=== PATIENT | male | born 1935 | race Caucasian/White ===

== ENCOUNTER 2016-09-13 10:16 | Inpatient (IN) | payer OTHER, MEDICARE ==
[~2016-09-13] VITALS: Ht 175.3 cm; Wt 59.8 kg
[~2016-09-13 10:16] MED LIST: ACET-1311 PO; AMLO-110 PO; BISA-16 PO; NYSP EXT; TAMS0.4C59 PO; ULT50X PO
--- NOTE | 2016-09-13 11:03 | EMERGENCY ROOM VISIT NOTE ---
History Report prepared by Edelmira: Tejas Moncada Under the Supervision of: Dr. Jose Rutherfodr M.D. First contact with patient: 10:41 Chief Complaint: DIZZY Stated Complaint: CHEST PAIN Nursing Triage Summary: pt reports being dizzy yesterday denies any chest pain . stated earlier started today is intermittent and does not radiate. pt denies any cardiac problems in past has hx of neck surgery "years ago" and has chronic back pain pain radiates down bilat legs History of Present Illness The patient is an 81 year old male who presents to the Emergency Room with complaints of improved dizziness that occurred this morning. The patient had a physical therapist visit him at home. He had his blood pressure measured and was found to be hypotensive. His primary doctor at the [facility] was called, who referred the patient to the ED. The patient also complains of some abdominal pain that he has been experiencing for a while. He suffers from constipation. The patient denies any recent fevers, chills, chest pain, or cough. He does note that he has had leg pain. The patient's left leg is weak at baseline. Source of History: patient Onset: this morning Position: other (global) Quality: other (dizziness) Timing: other (improved) Associated Symptoms: + abdominal pain, No chest pain, No chills, No cough, No fevers Review of Systems See HPI for pertinent positives & negatives. A total of 10 systems reviewed and were otherwise negative. Past Medical & Surgical Medical Problems: (1) Asthma (2) Dizziness (3) Gait abnormality (4) HTN (hypertension) (5) Kidney disease (6) Spinal stenosis (7) Sprain of ankle Family History No pertinent family history Social History Smoking Status: Never Smoker Housing Status: lives with friends Occupation Status: retired Current/Historical Medications Scheduled Bisacodyl (Dulcolax), Unknown Dose PO UD Tamsulosin Hcl (Flomax), 0.4 MG PO DAILY Scheduled PRN Acetaminophen (Tylenol), 325 MG PO QID PRN for Pain Tramadol HCl (Tramadol HCl), 50 MG PO Q4H PRN for Pain Allergies Coded Allergies: Tetanus Immune Globulin (Verified Allergy, Mild, 09/13/16) Physical Exam Vital Signs Date Time Temp Pulse Resp B/P Pulse Ox O2 Delivery O2 Flow Rate FiO2 09/13/16 14:24 75 22 134/78 96 Room Air 09/13/16 14:22 69 20 178/78 100 Nasal Cannula 2.0 09/13/16 13:38 63 09/13/16 12:59 95 Nasal Cannula 2.0 09/13/16 12:58 74 22 140/59 94 Room Air 09/13/16 12:43 75 20 140/59 92 Room Air 09/13/16 11:27 62 125/66 94 105/45 96 122/51 09/13/16 11:23 94 Room Air 09/13/16 10:33 36.4 68 24 125/65 94 Room Air 09/13/16 10:28 87 Physical Exam GENERAL: Patient is a healthy-appearing well-nourished HEAD: Normocephalic atraumatic EYES: Ocular movements intact pupils equal and react to light OROPHARYNX mucous membranes are moist no exudates present no erythema or edema present NECK: Supple no nuchal rigidity CHEST: Good equal expansion LUNGS: Clear and equal to auscultation CARDIAC: Normal S1 and S2 ABDOMEN: Soft nontender no guarding BACK: No CVA tenderness EXTREMITIES: No pain upon palpation normal muscle strength in all groups no clubbing cyanosis or edema NEURO: Patient is following commands is answering questions appropriately. Alert and oriented x3 Cranial Nerves 2-12 grossly intact Medical Decision & Procedures ER Provider Diagnostic Interpretation: Radiology results as stated below per my review and radiologist interpretation: CT HEAD WITHOUT CONTRAST (CT) CLINICAL HISTORY: Acute change in mental status. Confusion. COMPARISON STUDY: 04/14/2013 TECHNIQUE: Axial CT of the brain is performed from the vertex to the skull base. IV contrast was not administered for this examination. CT DOSE: 614.27 mGy.cm FINDINGS: No intra or extra-axial mass lesions are visualized. There is no CT evidence of acute cortical infarction. There is no evidence of midline shift. There is no acute hemorrhage. No calvarial fractures are visualized. There are patchy white matter hypodensities likely on a small vessel basis. There are lacunar infarcts involving both thalami as well as the left cerebellar hemisphere. These appear old, but were not present on the prior 2012 study.. There is no evidence of pathologic ventricular dilatation. There is no evidence of acute sinusitis IMPRESSION: Interval development of lacunar infarcts involving both thalami and the left cerebellar hemisphere. These do not appear acute. Electronically signed by: Lio Fleming M.D. 09/13/2016 12:34 PM Dictated Date/Time: 09/13/2016 12:32 PM ABDOMEN AND PELVIS CT WITH IV CONTRAST CT DOSE: 319.70 mGy.cm HISTORY: Pain Pt c/o RLQ abd pain TECHNIQUE: Multiaxial CT images of the abdomen and pelvis were performed following the use of intravenous contrast. COMPARISON STUDY: 04/01/2013 FINDINGS: Interval development of right pleural effusion. Minimal superimposed basilar atelectasis. Mild fatty infiltration of liver. Several gallstones within the gallbladder lumen unchanged. Several calcifications within the pancreas consistent with chronic pancreatitis. Cystic lesion of the pancreatic head 1.3 cm maximum dimension. This is similar to the prior study 1.2 cm. Kidneys demonstrate several nonobstructing renal calcifications bilaterally. There is no evidence for an obstructing urinary tract calculus. Mild distention of the infrarenal aspect abdominal aorta 2.6 cm. This is similar to the prior study 2.7 cm. Bowel pattern overall is nonobstructive. The appendix is identified at least in part and appears to be unremarkable. Mild prominence of the distal aspect of the right ureter is unchanged in the prior study. There is a significant fecal impaction within the rectum. Bladder somewhat displaced anteriorly. IMPRESSION: 1. Rather significant fecal impaction of the rectum. 2. Study is negative for appendicitis. 3. Nonobstructive bowel pattern. 4. Stable cystic nodule the pancreatic head. 5. Several nonobstructing renal calcifications unchanged. 6. Interval development of a right pleural effusion with mild bibasilar atelectatic change Electronically signed by: Lencho Barrios M.D. 09/13/2016 12:39 PM Dictated Date/Time: 09/13/2016 12:33 PM CHEST ONE VIEW PORTABLE CLINICAL HISTORY: Pt c/o gen weakness COMPARISON STUDY: 04/02/2013 FINDINGS: The bones soft tissues and hemidiaphragms are normal. The cardiomediastinal silhouette is normal. The lungs are clear. The pulmonary vasculature is slightly prominent. IMPRESSION: Pulmonary vascular congestion Electronically signed by: Lencho Barrios M.D. 09/13/2016 12:21 PM Dictated Date/Time: 09/13/2016 12:20 PM Laboratory Results Test 09/13/16 09:53 09/13/16 11:16 09/13/16 11:30 Immature Granulocyte % (Auto) 0.8 % White Blood Count 9.32 K/uL (4.8-10.8) Red Blood Count 4.91 M/uL (4.7-6.1) Hemoglobin 15.0 g/dL (14.0-18.0) Hematocrit 43.5 % (42-52) Mean Corpuscular Volume 88.6 fL (80-100) Mean Corpuscular Hemoglobin 30.5 pg (25-34) Mean Corpuscular Hemoglobin Concent 34.5 g/dl (32-36) Platelet Count 225 K/uL (130-400) Mean Platelet Volume 9.5 fL (7.4-10.4) Neutrophils (%) (Auto) 76.4 % Lymphocytes (%) (Auto) 11.9 % Monocytes (%) (Auto) 6.3 % Eosinophils (%) (Auto) 4.1 % Basophils (%) (Auto) 0.5 % Neutrophils # (Auto) 7.12 K/uL (1.4-6.5) Lymphocytes # (Auto) 1.11 K/uL (1.2-3.4) Monocytes # (Auto) 0.59 K/uL (0.11-0.59) Eosinophils # (Auto) 0.38 K/uL (0-0.5) Basophils # (Auto) 0.05 K/uL (0-0.2) Immature Granulocyte # (Auto) 0.07 K/uL (0.00-0.02) Estimated Average Glucose 123 mg/dl Hemoglobin A1c 5.9 % (4.5-5.6) Total Bilirubin 0.8 mg/dl (0.2-1) Direct Bilirubin 0.2 mg/dl (0-0.2) Aspartate Amino Transf (AST/SGOT) 21 U/L (15-37) Alanine Aminotransferase (ALT/SGPT) 19 U/L (12-78) Alkaline Phosphatase 88 U/L (45-117) Total Creatine Kinase 33 U/L (39-308) Creatine Kinase MB 1.2 ng/ml (0.5-3.6) Creatine Kinase MB Ratio 3.6 (0-3.0) Total Protein 6.7 gm/dl (6.4-8.2) Albumin 3.1 gm/dl (3.4-5.0) Thyroid Stimulating Hormone (TSH) 1.570 uIu/ml (0.300-4.500) Bedside Glucose 124 mg/dl (70-99) Urine Color DK YELLOW Urine Appearance CLEAR (CLEAR) Urine pH 5.5 (4.5-7.5) Urine Specific [place] 1.021 (1.000-1.030) Urine Protein NEG (NEG) Urine Glucose (UA) NEG (NEG) Urine Ketones NEG (NEG) Urine Occult Blood 1+ (NEG) Urine Nitrite NEG (NEG) Urine Bilirubin NEG (NEG) Urine Urobilinogen NEG (NEG) Urine Leukocyte Esterase NEG (NEG) Urine WBC (Auto) 1-5 /hpf (0-5) Urine RBC (Auto) >30 /hpf (0-4) Urine Hyaline Casts (Auto) 1-5 /lpf (0-5) Urine Epithelial Cells (Auto) 10-20 /lpf (0-5) Urine Bacteria (Auto) NEG (NEG) Labs reviewed by ED physician. Medications Administered Medications (Trade) Dose Ordered Sig/Roland Route Start Time Stop Time Status Last Admin Dose Admin Sodium Chloride (Nss 1000ml) 1,000 ml @ 999 mls/hr Q1H1M STAT IV 09/13/16 11:08 09/13/16 12:08 DC 09/13/16 11:19 999 MLS/HR Morphine Sulfate (MoRPHine SULFATE INJ) 4 mg NOW STAT IV 09/13/16 13:02 09/13/16 13:03 DC 09/13/16 13:19 4 MG Ondansetron HCl (Zofran Inj) 4 mg NOW STAT IV 09/13/16 13:02 09/13/16 13:03 DC 09/13/16 13:19 4 MG Acetaminophen (Tylenol Tab) 1,000 mg NOW STAT PO 09/13/16 13:02 09/13/16 13:03 DC 09/13/16 13:18 1,000 MG Acetaminophen (Tylenol Tab) 650 mg Q4H PRN PO 09/13/16 14:45 10/13/16 14:44 09/15/16 16:10 650 MG Tramadol HCl 50 mg 50 mg Q4H PRN PO 09/13/16 14:45 10/13/16 14:44 09/15/16 13:59 50 MG Sodium Chloride (Nss 1000ml) 1,000 ml @ 75 mls/hr [id number] ONCE IV 09/13/16 14:45 09/14/16 04:04 DC 09/13/16 17:09 75 MLS/HR ECG Indication: other (dizziness) Rate (beats per minute): 70 Rhythm: normal sinus Findings: no acute ischemic change, no ectopy, other (old inferior infarct) ED Course 1057: Past medical records reviewed. The patient was evaluated in room A9b. A complete history and physical examination was performed. 1108: NSS 1000 ml @ 999 mls/hr. 1302: Tylenol 1000 mg PO, Zofran 4 mg IV, Morphine Sulfate 4 mg IV. 1327: Discussed the case with Dr. Torres [facility]. The patient will be evaluated. Medical Decision Differential diagnosis: Etiologies such as metabolic, infection, hypo/hyperglycemia, electrolyte abnormalities, cardiac sources, intracerebral event, toxicologic, neurologic, as well as others were entertained. This is an 81-year-old male presents emergency department complaining of generalized weakness. The patient appears to have multiple lacunar infarcts on CAT scan of his head. Based on this finding I felt that the patient should be admitted to the hospital for a stroke workup. I did discuss the case with the hospitalist service who agreed to admit the patient. Patient was in agreement with the treatment plan. Consults Time Called: 1320 Consulting Physician: Dr. Torres [facility]. Returned Call: [phone]: Discussed the case with Dr. Torres [facility]. The patient will be evaluated. Impression Primary Impression: CVA (cerebral vascular accident) Scribe Attestation The scribe's documentation has been prepared under my direction and personally reviewed by me in its entirety. I confirm that the note above accurately reflects all work, treatment, procedures, and medical decision making performed by me. Departure Information Dispostion Being Evaluated By Hospitalist Referrals [facility] [place] (PCP) Patient Instructions My [facility]
[2016-09-13] MEDS ORDERED: SODIUM CHLORIDE 0.9% 1000ML 1,000 ML IV STA (11:08)
[2016-09-13] MEDS ORDERED: OPTIRAY 320 IV PRN (11:15)
[2016-09-13] MEDS ORDERED: TAMS0.4C38 PO (11:24)
[2016-09-13 11:33] LABS: BASO % 0.5 %; BASO ABS # 0.05 K/uL (0-0.2); COMPLETE YES; EOS % 4.1 %; HEMATOCRIT 43.5 % (42-52); IG% 0.8 %; LYMPH % 11.9 %; LYMPH ABS # 1.11 K/uL (1.2-3.4); MEAN CELL VOLUME 88.6 fL (80-100); MEAN CORPUSCULAR HEMOGLOBIN 30.5 pg (25-34); MEAN CORPUSCULAR HGB CONC 34.5 g/dl (32-36); MEAN PLATELET VOLUME 9.5 fL (7.4-10.4); MONO % 6.3 %; NEUT % 76.4 %; PLATELET COUNT 225 K/uL (130-400); RED BLOOD COUNT 4.91 M/uL (4.7-6.1); WHITE BLOOD COUNT 9.32 K/uL (4.8-10.8)
[2016-09-13 11:40] LABS: BUN/CREATININE RATIO 15.5 (10-20)
[2016-09-13 11:47] LABS: URINE APPEARANCE CLEAR (CLEAR); URINE BILIRUBIN NEG (NEG); URINE COLOR DK YELLOW; URINE NITRITE NEG (NEG); URINE PH 5.5 (4.5-7.5); URINE SPECIFIC GRAVITY 1.021 (1.000-1.030); UROBILINOGEN NEG (NEG)
[2016-09-13 11:49] LABS: MANUAL MICROSCOPIC REQUIRED? NO; REVIEW REQ? NO
[2016-09-13 11:53] LABS: CKMB/CK RATIO 3.6 (0-3.0); THYROID STIMULATING HORMONE 1.57 uIu/ml (0.300-4.500)
--- NOTE | 2016-09-13 12:22 | DIAGNOSTIC IMAGING REPORT ---
CHEST ONE VIEW PORTABLE CLINICAL HISTORY: Pt c/o gen weakness COMPARISON STUDY: 04/02/2013 FINDINGS: The bones soft tissues and hemidiaphragms are normal. The cardiomediastinal silhouette is normal. The lungs are clear. The pulmonary vasculature is slightly prominent. IMPRESSION: Pulmonary vascular congestion Electronically signed by: Lencho Barrios M.D. 09/13/2016 12:21 PM Dictated Date/Time: 09/13/2016 12:20 PM
--- NOTE | 2016-09-13 12:36 | DIAGNOSTIC IMAGING REPORT ---
CT HEAD WITHOUT CONTRAST (CT) CLINICAL HISTORY: Acute change in mental status. Confusion. COMPARISON STUDY: 04/14/2013 TECHNIQUE: Axial CT of the brain is performed from the vertex to the skull base. IV contrast was not administered for this examination. CT DOSE: 614.27 mGy.cm FINDINGS: No intra or extra-axial mass lesions are visualized. There is no CT evidence of acute cortical infarction. There is no evidence of midline shift. There is no acute hemorrhage. No calvarial fractures are visualized. There are patchy white matter hypodensities likely on a small vessel basis. There are lacunar infarcts involving both thalami as well as the left cerebellar hemisphere. These appear old, but were not present on the prior 2012 study.. There is no evidence of pathologic ventricular dilatation. There is no evidence of acute sinusitis IMPRESSION: Interval development of lacunar infarcts involving both thalami and the left cerebellar hemisphere. These do not appear acute. Electronically signed by: Lio Fleming M.D. 09/13/2016 12:34 PM Dictated Date/Time: 09/13/2016 12:32 PM
--- NOTE | 2016-09-13 12:40 | DIAGNOSTIC IMAGING REPORT ---
ABDOMEN AND PELVIS CT WITH IV CONTRAST CT DOSE: 319.70 mGy.cm HISTORY: Pain Pt c/o RLQ abd pain TECHNIQUE: Multiaxial CT images of the abdomen and pelvis were performed following the use of intravenous contrast. COMPARISON STUDY: 04/01/2013 FINDINGS: Interval development of right pleural effusion. Minimal superimposed basilar atelectasis. Mild fatty infiltration of liver. Several gallstones within the gallbladder lumen unchanged. Several calcifications within the pancreas consistent with chronic pancreatitis. Cystic lesion of the pancreatic head 1.3 cm maximum dimension. This is similar to the prior study 1.2 cm. Kidneys demonstrate several nonobstructing renal calcifications bilaterally. There is no evidence for an obstructing urinary tract calculus. Mild distention of the infrarenal aspect abdominal aorta 2.6 cm. This is similar to the prior study 2.7 cm. Bowel pattern overall is nonobstructive. The appendix is identified at least in part and appears to be unremarkable. Mild prominence of the distal aspect of the right ureter is unchanged in the prior study. There is a significant fecal impaction within the rectum. Bladder somewhat displaced anteriorly. IMPRESSION: 1. Rather significant fecal impaction of the rectum. 2. Study is negative for appendicitis. 3. Nonobstructive bowel pattern. 4. Stable cystic nodule the pancreatic head. 5. Several nonobstructing renal calcifications unchanged. 6. Interval development of a right pleural effusion with mild bibasilar atelectatic change Electronically signed by: Lencho Barrios M.D. 09/13/2016 12:39 PM Dictated Date/Time: 09/13/2016 12:33 PM
[2016-09-13] MEDS ORDERED: ONDANSETRON INJ 2 MG/ML 2 ML VIAL IV STA (13:02)
[2016-09-13] MEDS ORDERED: ACETAMINOPHEN 500 MG TAB PO STA (13:02)
[2016-09-13] MEDS ORDERED: MoRPHine SULFATE 4 MG/ML 1 ML CARP\\VIAL IV STA (13:02)
[2016-09-13] MEDS ORDERED: POLYETHYLENE (MIRALAX) 17 GM PACK PO PRN (14:45)
[2016-09-13] MEDS ORDERED: MAGNESIUM HYDROXIDE SUSP 30 ML UDC PO PRN (14:45)
[2016-09-13] MEDS ORDERED: SODIUM CHLORIDE 0.9% 1000ML 1,000 ML IV ONE ×2 (14:45→22:45)
[2016-09-13] MEDS ORDERED: ACETAMINOPHEN 325 MG TAB PO PRN (14:45)
[2016-09-13] MEDS ORDERED: SENNA 8.8 MG/5 ML UDP PO PRN (15:00)
[2016-09-13 16:01] LABS: PARTIAL THROMBOPLASTIN RATIO 1.3; PROTHROMBIN TIME (PATIENT) 11.1 SECONDS (9.0-12.0)
[2016-09-13 16:40] VITALS: BP_SYST 105; BP_SYST 109; BP_SYST 118; BP_DIAS 62; BP_DIAS 66; BP_DIAS 67; PULSE 69; PULSE 78; PULSE 94
[2016-09-13] MEDS ORDERED: NURSING VERBAL MED ORDER ONE ×2 (17:30→22:30)
[2016-09-13 19:00] VITALS: BP 109/67; PULSE 69; TEMP 36.4; O2SAT 95; Ht 175.3 cm; Wt 59.8 kg
--- NOTE | 2016-09-13 20:28 | History and Physical ---
History & Physical Date & Time of Service: Sep 13, 2016 at 15:09 Chief Complaint: Chest Pain Primary Care Physician: Noa Alonso M.D. History of Present Illness Source: patient, spouse This is a 81 y/o male with no significant PMHx presented to the ED complaining of dizziness and blurry vision since this morning. Patient states that yesterday after having the physical therapy, his BP reading was low (couldn't recall the exact BP). Physical therapist informed the nurse, who came the next day to his house and also found to have low BP (systolic in 90s and Diastolic in 40s). While he was sitting down and talking to the nurse, he felt dizzy. He describes the dizziness as "everything looks strange". His vision was blurry also. For past couple of months he is feeling weak. His appetite decreased also. His left arm is weaker than the right arm. He also has b/l lower extremities weakness. According to the at home he moves around with transporter. He also complains of constipation and abdominal discomfort, mostly on the RLQ. He usually takes Dulcolax at home. He didn't have bowel movements for past few days. Denies chest pain, SOB, change in vision, heart palpitation, headache, lightheadedness, or any other additional symptoms. Past Medical/Surgical History Medical Problems: (1) Asthma Status: Chronic (2) HTN (hypertension) Status: Chronic (3) Kidney disease Status: Chronic (4) Spinal stenosis Status: Chronic (5) Sprain of ankle Status: Resolved Family History Daughter of asthma at the age of 16 Social History Smoking Status: Former Smoker Housing status: lives with family Occupational Status: retired Immunizations History of Influenza Vaccine: No History of Tetanus Vaccine?: Unknown History of Pneumococcal: No History of Hepatitis B Vaccine: No Allergies Coded Allergies: Tetanus Immune Globulin (Verified Allergy, Mild, 09/13/16) Home Medications Scheduled Bisacodyl (Dulcolax), Unknown Dose PO UD Tamsulosin Hcl (Flomax), 0.4 MG PO DAILY Scheduled PRN Acetaminophen (Tylenol), 325 MG PO QID PRN for Pain Tramadol HCl (Tramadol HCl), 50 MG PO Q4H PRN for Pain Review of Systems Constitutional: + weakness, + weight loss, No chills, No fever Eyes: + diplopia, + problem reported (blurry vision), No worsening of vision ENT: No nasal symptoms, No sore throat, No tinnitus, No trouble swallowing Respiratory: No cough, No dyspnea at rest, No dyspnea on exertion, No shortness of breath, No sputum Cardiovascular: No chest pain, No edema, No palpitations Abdomen: + constipation, + pain (generalized abdominal discomfort, more on RLQ) , No diarrhea, No nausea, No vomiting Musculoskeletal: No muscle pain, No swelling Genitourinary - Male: + urinary incontinence, No hematuria Neurologic: + weakness, No numbness/tingling, No paralysis Integumentary: No rash Physical Exam Vital Signs Date Time Temp Pulse Resp B/P Pulse Ox O2 Delivery O2 Flow Rate FiO2 09/13/16 14:24 75 22 134/78 96 Room Air 09/13/16 14:22 69 20 178/78 100 Nasal Cannula 2.0 09/13/16 13:38 63 09/13/16 12:59 95 Nasal Cannula 2.0 09/13/16 12:58 74 22 140/59 94 Room Air 09/13/16 12:43 75 20 140/59 92 Room Air 09/13/16 11:27 62 125/66 94 105/45 96 122/51 09/13/16 11:23 94 Room Air 09/13/16 10:33 36.4 68 24 125/65 94 Room Air 09/13/16 10:28 87 General Appearance: WD/WN, no apparent distress, + thin Head: normocephalic, atraumatic Eyes: normal inspection, EOMI, sclerae normal Neck: supple, trachea midline Respiratory/Chest: chest non-tender, lungs clear, no respiratory distress, no accessory muscle use Cardiovascular: regular rate, rhythm, no edema Abdomen/GI: normal bowel sounds, soft, no pulsatile mass, + tenderness (RLQ) Extremities/Musculoskelatal: no calf tenderness, no pedal edema, non-tender Neurologic/Psych: alert, normal mood/affect, oriented x 3, + pertinent finding (baseline L leg weakness, L arm weakness) Skin: normal color, warm/dry Diagnostics Laboratory Results Results Past 24 Hours Test 09/13/16 09:53 09/13/16 11:16 09/13/16 11:30 Range/Units White Blood Count 9.32 4.8-10.8 K/uL Red Blood Count 4.91 4.7-6.1 M/uL Hemoglobin 15.0 14.0-18.0 g/dL Hematocrit 43.5 42-52 % Mean Corpuscular Volume 88.6 80-100 fL Mean Corpuscular Hemoglobin 30.5 25-34 pg Mean Corpuscular Hemoglobin Concent 34.5 32-36 g/dl Platelet Count 225 130-400 K/uL Mean Platelet Volume 9.5 7.4-10.4 fL Neutrophils (%) (Auto) 76.4 % Lymphocytes (%) (Auto) 11.9 % Monocytes (%) (Auto) 6.3 % Eosinophils (%) (Auto) 4.1 % Basophils (%) (Auto) 0.5 % Neutrophils # (Auto) 7.12 1.4-6.5 K/uL Lymphocytes # (Auto) 1.11 1.2-3.4 K/uL Monocytes # (Auto) 0.59 0.11-0.59 K/uL Eosinophils # (Auto) 0.38 0-0.5 K/uL Basophils # (Auto) 0.05 0-0.2 K/uL RDW Standard Deviation 47.9 36.4-46.3 fL RDW Coefficient of Variation 14.9 11.5-14.5 % Immature Granulocyte % (Auto) 0.8 % Immature Granulocyte # (Auto) 0.07 0.00-0.02 K/uL Sodium Level 141 136-145 mmol/L Potassium Level 4.0 3.5-5.1 mmol/L Chloride Level 108 98-107 mmol/L Carbon Dioxide Level 26 21-32 mmol/L Anion Gap 7.0 3-11 mmol/L Blood Urea Nitrogen 16 7-18 mg/dl Creatinine 1.00 0.60-1.40 mg/dl Est Creatinine Clear Calc Drug Dose 48.2 ml/min Estimated GFR () 80.9 Estimated GFR (Non- 69.8 BUN/Creatinine Ratio 15.5 10-20 Random Glucose 118 70-99 mg/dl Calcium Level 9.0 8.5-10.1 mg/dl Total Bilirubin 0.8 0.2-1 mg/dl Direct Bilirubin 0.2 0-0.2 mg/dl Aspartate Amino Transf (AST/SGOT) 21 15-37 U/L Alanine Aminotransferase (ALT/SGPT) 19 12-78 U/L Alkaline Phosphatase 88 45-117 U/L Total Creatine Kinase 33 39-308 U/L Creatine Kinase MB 1.2 0.5-3.6 ng/ml Creatine Kinase MB Ratio 3.6 0-3.0 Troponin I 0.016 0-0.045 ng/ml Total Protein 6.7 6.4-8.2 gm/dl Albumin 3.1 3.4-5.0 gm/dl Thyroid Stimulating Hormone (TSH) 1.570 0.300-4.500 uIu/ml Bedside Glucose 124 70-99 mg/dl Urine Color DK YELLOW Urine Appearance CLEAR CLEAR Urine pH 5.5 4.5-7.5 Urine Specific [place] 1.021 1.000-1.030 Urine Protein NEG NEG Urine Glucose (UA) NEG NEG Urine Ketones NEG NEG Urine Occult Blood 1+ NEG Urine Nitrite NEG NEG Urine Bilirubin NEG NEG Urine Urobilinogen NEG NEG Urine Leukocyte Esterase NEG NEG Urine WBC (Auto) 1-5 0-5 /hpf Urine RBC (Auto) >30 0-4 /hpf Urine Hyaline Casts (Auto) 1-5 0-5 /lpf Urine Epithelial Cells (Auto) 10-20 0-5 /lpf Urine Bacteria (Auto) NEG NEG Diagnostic Radiology Patient Name: JOSEPH MATHUR Unit Number: [id number] Dictated: 09/13/161231 Transcribed: 09/13/161231 ARG Printed Date/Time: [~ rep prt dt]/[~ rep prt tm] [~ rep ct labl] - [~ rep ct ivnm] [facility] [place] [address] Dictated: 09/13/161231 Transcribed: 09/13/161231 ARG Printed Date/Time: [~ rep prt dt]/[~ rep prt tm] [~ rep ct labl] - [~ rep ct ivnm] CT HEAD WITHOUT CONTRAST (CT) CLINICAL HISTORY: Acute change in mental status. Confusion. COMPARISON STUDY: 04/14/2013 TECHNIQUE: Axial CT of the brain is performed from the vertex to the skull base. IV contrast was not administered for this examination. CT DOSE: 614.27 mGy.cm FINDINGS: No intra or extra-axial mass lesions are visualized. There is no CT evidence of acute cortical infarction. There is no evidence of midline shift. There is no acute hemorrhage. No calvarial fractures are visualized. There are patchy white matter hypodensities likely on a small vessel basis. There are lacunar infarcts involving both thalami as well as the left cerebellar hemisphere. These appear old, but were not present on the prior 2012 study.. There is no evidence of pathologic ventricular dilatation. There is no evidence of acute sinusitis IMPRESSION: Interval development of lacunar infarcts involving both thalami and the left cerebellar hemisphere. These do not appear acute. Electronically signed by: Lio Fleming M.D. 09/13/2016 12:34 PM Dictated Date/Time: 09/13/2016 12:32 PM The status of this report is Signed. Draft = Not yet reviewed or approved by Radiologist. Signed = Reviewed and approved by Radiologist. <AttendingPhy></AttendingPhy> <FamilyPhy>Noa Alonso M.D.</FamilyPhy> <PrimaryPhy>Noa Alonso M.D.</PrimaryPhy> <UnitNumber>[id number]</ UnitNumber> <VisitNumber>[id number]</VisitNumber> <PatientName>JOSEPH MATHUR</ PatientName> <DateOfBirth>1935</DateOfBirth> <Location>[facility]</Location> < ServiceDate>09/13/16</ServiceDate> <MNE>ESINDI</MNE> <OrderingPhy>Jose Rutherford MD</OrderingPhy> <OrderingPhyMNE>f rep ord dr morris</OrderingPhyMNE> < DictatingPhyMNE>f rep dict dr morris</DictatingPhyMNE> <CCListMNE>f rep ct arturo</ CCListMNE> <AdmittingPhyMNE>f pt admit dr morris</AdmittingPhyMNE> <AttendingPhyMNE >f pt attend dr morris</AttendingPhyMNE> <ConsultingPhyMNE>f pt consult dr morris</ConsultingPhyMNE> <FamilyPhyMNE>f pt fam dr morris</FamilyPhyMNE> <OtherPhyMNE>f pt other dr morris</OtherPhyMNE> < PrimaryPhyMNE>f pt prim care dr morris</PrimaryPhyMNE> <ReferringPhyMNE>f pt referring dr morris</ReferringPhyMNE> Patient Name: JOSEPH MATHUR Unit Number: [id number] Dictated: 09/13/161232 Transcribed: 09/13/16 123 MS Printed Date/Time: [~ rep prt dt]/[~ rep prt tm] [~ rep ct labl] - [~ rep ct ivnm] [facility] Radiology Department [place], [place] [id number] Dictated: 09/13/16 123 Transcribed: 09/13/16 123 MS Printed Date/Time: [~ rep prt dt]/[~ rep prt tm] [~ rep ct labl] - [~ rep ct ivnm] ABDOMEN AND PELVIS CT WITH IV CONTRAST CT DOSE: 319.70 mGy.cm HISTORY: Pain Pt c/o RLQ abd pain TECHNIQUE: Multiaxial CT images of the abdomen and pelvis were performed following the use of intravenous contrast. COMPARISON STUDY: 04/01/2013 FINDINGS: Interval development of right pleural effusion. Minimal superimposed basilar atelectasis. Mild fatty infiltration of liver. Several gallstones within the gallbladder lumen unchanged. Several calcifications within the pancreas consistent with chronic pancreatitis. Cystic lesion of the pancreatic head 1.3 cm maximum dimension. This is similar to the prior study 1.2 cm. Kidneys demonstrate several nonobstructing renal calcifications bilaterally. There is no evidence for an obstructing urinary tract calculus. Mild distention of the infrarenal aspect abdominal aorta 2.6 cm. This is similar to the prior study 2.7 cm. Bowel pattern overall is nonobstructive. The appendix is identified at least in part and appears to be unremarkable. Mild prominence of the distal aspect of the right ureter is unchanged in the prior study. There is a significant fecal impaction within the rectum. Bladder somewhat displaced anteriorly. IMPRESSION: 1. Rather significant fecal impaction of the rectum. 2. Study is negative for appendicitis. 3. Nonobstructive bowel pattern. 4. Stable cystic nodule the pancreatic head. 5. Several nonobstructing renal calcifications unchanged. 6. Interval development of a right pleural effusion with mild bibasilar atelectatic change Electronically signed by: Lencho Barrios M.D. 09/13/2016 12:39 PM Dictated Date/Time: 09/13/2016 12:33 PM The status of this report is Signed. Draft = Not yet reviewed or approved by Radiologist. Signed = Reviewed and approved by Radiologist. <AttendingPhy></AttendingPhy> <FamilyPhy>Noa Alonso M.D.</FamilyPhy> <PrimaryPhy>Noa Alonso M.D.</PrimaryPhy> <UnitNumber>[id number]</ UnitNumber> <VisitNumber>[id number]</VisitNumber> <PatientName>JOSEPH MATHUR</ PatientName> <DateOfBirth>1935</DateOfBirth> <Location>[facility]</Location> < ServiceDate>09/13/16</ServiceDate> <MNE>ESINDI</MNE> <OrderingPhy>Jose Rutherford MD</OrderingPhy> <OrderingPhyMNE>f rep ord dr morris</OrderingPhyMNE> < DictatingPhyMNE>f rep dict dr morris</DictatingPhyMNE> <CCListMNE>f rep ct mne</ CCListMNE> <AdmittingPhyMNE>f pt admit dr morris</AdmittingPhyMNE> <AttendingPhyMNE >f pt attend dr morris</AttendingPhyMNE> <ConsultingPhyMNE>f pt consult dr morris</ConsultingPhyMNE> <FamilyPhyMNE>f pt fam dr morris</FamilyPhyMNE> <OtherPhyMNE>f pt other dr morris</OtherPhyMNE> < PrimaryPhyMNE>f pt prim care dr morris</PrimaryPhyMNE> <ReferringPhyMNE>f pt referring dr morris</ReferringPhyMNE> Patient Name: JOSEPH MATHUR Unit Number: [id number] Dictated: 09/13/16 1220 Transcribed: 09/13/16 1220 MS Printed Date/Time: [~ rep prt dt]/[~ rep prt tm] [~ rep ct labl] - [~ rep ct ivnm] [facility] [place] [address] Dictated: 09/13/16 1220 Transcribed: 09/13/16 1220 MS Printed Date/Time: [~ rep prt dt]/[~ rep prt tm] [~ rep ct labl] - [~ rep ct ivnm] CHEST ONE VIEW PORTABLE CLINICAL HISTORY: Pt c/o gen weakness COMPARISON STUDY: 04/02/2013 FINDINGS: The bones soft tissues and hemidiaphragms are normal. The cardiomediastinal silhouette is normal. The lungs are clear. The pulmonary vasculature is slightly prominent. IMPRESSION: Pulmonary vascular congestion Electronically signed by: Lencho Barrios M.D. 09/13/2016 12:21 PM Dictated Date/Time: 09/13/2016 12:20 PM The status of this report is Signed. Draft = Not yet reviewed or approved by Radiologist. Signed = Reviewed and approved by Radiologist. <AttendingPhy></AttendingPhy> <FamilyPhy>Noa Alonso M.D.</FamilyPhy> <PrimaryPhy>Noa Alonso M.D.</PrimaryPhy> <UnitNumber>[id number]</ UnitNumber> <VisitNumber>[id number]</VisitNumber> <PatientName>JOSEPH MATHUR</ PatientName> <DateOfBirth>1935</DateOfBirth> <Location>[facility]</Location> < ServiceDate>09/13/16</ServiceDate> <MNE>ESINDI</MNE> <OrderingPhy>Jose Rutherford MD</OrderingPhy> <OrderingPhyMNE>f rep ord dr morris</OrderingPhyMNE> < DictatingPhyMNE>f rep dict dr morris</DictatingPhyMNE> <CCListMNE>f rep ct aidae</ CCListMNE> <AdmittingPhyMNE>f pt admit dr morris</AdmittingPhyMNE> <AttendingPhyMNE >f pt attend dr morris</AttendingPhyMNE> <ConsultingPhyMNE>f pt consult dr morris</ConsultingPhyMNE> <FamilyPhyMNE>f pt fam dr morris</FamilyPhyMNE> <OtherPhyMNE>f pt other dr morris</OtherPhyMNE> < PrimaryPhyMNE>f pt prim care dr morris</PrimaryPhyMNE> <ReferringPhyMNE>f pt referring dr morris</ReferringPhyMNE> EKG Normal sinus rhythm. Inferior infract is presented when compared with prior EKG (18-MAY-2016) Impression Assessment and Plan This is a 81 y/o male with no significant past medical history presented to the ED complaining of dizziness and blurry vision since this morning. 1. Dizziness/blurry vision - CT of the head showed : Interval development of lacunar infarcts involving both thalami and the left cerebellar hemisphere. These do not appear acute. - Patient symptoms can be secondary to hypotension vs dehydration from poor appetite vs CVA. It is very less likely he has an acute CVA given CT of the head didn't show any acute infract and also his weakness seems to be chronic. - Since there is a concern for possible CVA, stroke workups including A1c, lipid profile, Echo and CTA of the head and neck with contrast are ordered - Patient will be start on ASA 81mg - Start Atorvastatin 20mg for now, can be adjusted upon the result of the lipid profile. Neurological recommendation for stroke risk factor modifications : total cholesterol goal 100-200, and LDL <100. Avoid lowering total cholesterol less than 100 as this can increase risk for intracranial hemorrhage. Hgb A1c<7. - Will hold off on hypertension medication now given his BP is optimal - PT/OT is ordered 2. Constipation - CT of abd showed fecal impaction of the rectum - Will schedule Miralax and Senna prn 3. BPH - For now will continue with Flomax 0.4mg 4. DVT prophylaxis - Heparin 5. Code status - DNR I agree with Resident assessment and plan and have seen and examined pt myself Pt reported confusion and blurry vision lasting [address] head pos for thalamic and lacunar stroke R/o stroke CTA head/neck Cont asa, statin, get ECHO as well Hemodynamically stable Level of Care Med/Surg Resuscitation Status DO NOT RESUSCITATE VTE Prophylaxis VTE Risk Assessment Done? Y/N: Yes Risk Level: Moderate Given or contraindicated: Unfractionated heparin SQ Note About 60 minutes
[2016-09-13] MEDS: BISACODYL 5 MG TABEC PO SCH (20:40)
[2016-09-13] MEDS: HEPARIN SOD 5000 UNIT/0.5 ML CARP SQ SCH (20:42)
[2016-09-14 00:03] VITALS: BP 162/72; PULSE 72; TEMP 36.6; O2SAT 93
[2016-09-14] MEDS ORDERED: SODIUM CHLORIDE 0.9% 1000ML 1,000 ML IV ONE (04:00)
[2016-09-14 06:24] LABS: ESTIMATED AVERAGE GLUCOSE 123 mg/dl; HA1C FLAG Normal (Normal)
[2016-09-14 06:57] LABS: HEMATOCRIT 39.3 % (42-52); MEAN CELL VOLUME 88.7 fL (80-100); MEAN CORPUSCULAR HEMOGLOBIN 30.2 pg (25-34); MEAN CORPUSCULAR HGB CONC 34.1 g/dl (32-36); PLATELET COUNT 186 K/uL (130-400); RED BLOOD COUNT 4.43 M/uL (4.7-6.1); WHITE BLOOD COUNT 5.88 K/uL (4.8-10.8)
[2016-09-14 07:10] LABS: PARTIAL THROMBOPLASTIN RATIO 1.3; PROTHROMBIN TIME (PATIENT) 11.1 SECONDS (9.0-12.0)
[2016-09-14 07:38] VITALS: BP 158/89; PULSE 75; TEMP 36.4; O2SAT 93
[2016-09-14 07:40] LABS: BUN/CREATININE RATIO 15.3 (10-20); CALCIUM 8.1 mg/dl (8.5-10.1); CHOLESTEROL/HDL RATIO 5.9; CREATININE 0.88 mg/dl (0.60-1.40); POTASSIUM 4.9 mmol/L (3.5-5.1)
[2016-09-14] MEDS ORDERED: AMLODIPINE BESYLATE 5 MG TAB PO SCH (08:00)
[2016-09-14] MEDS: ASPIRIN 81 MG ECTAB PO SCH (08:09)
[2016-09-14] MEDS: BISACODYL 5 MG TABEC PO SCH ×2 (08:09→19:34)
[2016-09-14] MEDS: POLYETHYLENE (MIRALAX) 17 GM PACK PO SCH (08:09)
[2016-09-14] MEDS: TAMSULOSIN HCL 0.4 MG CAP PO SCH (08:09)
[2016-09-14] MEDS: ATORVASTATIN 20 MG TAB PO SCH (08:09)
[2016-09-14] MEDS: HEPARIN SOD 5000 UNIT/0.5 ML CARP SQ SCH ×2 (08:11→21:28)
--- NOTE | 2016-09-14 08:28 | Clinical Documentation Query ---
GURWINDER Singer : CLINICAL DOCUMENTATION QUERY Patient is an 81 year old male presenting to the ED for evaluation and treatment of dizziness and blurry vision. CT scan of the head read to include "Interval development of lacunar infarcts involving both thalami and the left cerebellar hemisphere. These do not appear acute." Resident documentation includes "It is very less likely he has an acute CVA". Attending documentation includes "CT head pos for thalamic and lacunar stroke", which will be interpreted as an acute condition unless stated otherwise. Accordingly, the options are as follows. This can be assigned as either a acute/subacute CVA or considered to be late effects of a previously experienced CVA. He is being treated with laboratory/chemistry workup, echocardiogram, CTA of the head and neck, ASA, a statin, neurology consultation, PT and OT consultation. Please clarify as clinically appropriate. Thank you. In your clinical opinion is this patient being managed for: ( ) Dizziness and blurry vision, late effects of CVA ( ) Acute or subacute thalamic and left cerebellar stroke ( X ) Other explanation of clinical findings (Please Explain) ( ) Unable to determine (Please Define) ( ) Need to Discuss ( ) Not Agree The medical record reflects the following clinical findings, treatment, and risk factors. Clinical Indicators: As above Treatment:He is being treated with laboratory/chemistry workup, echocardiogram, CTA of the head and neck, ASA, a statin, neurology consultation, PT and OT consultation Risk Factors: Age, hypertension, gender, likely vascular disease. Please clarify and document your clinical opinion in the progress notes and discharge summary. Terms such as "probable", "suspected", "likely", "questionable", "possible", or "still to be ruled out" are acceptable. IF IN AGREEMENT, YOU MUST DOCUMENT ABOVE DIAGNOSTIC STATEMENT IN DAILY PROGRESS NOTES AND DISCHARGE SUMMARY. This document is not part of the patient's record. Thank You, Kodak Headley, RN [phone]
[2016-09-14] MEDS ORDERED: TAMSULOSIN HCL 0.4 MG CAP PO SCH (09:00)
--- NOTE | 2016-09-14 13:49 | Hospitalist Progress Note ---
Hospitalist Progress Note Date of Service Sep 14, 2016. Subjective Pt evaluation today including: conversation w/ patient, physical exam, chart review, lab review, review of studies, review of inpatient medication list Patient admitted last evening with dizziness and reports of hypotension following physical therapy session. He has had lacunar infarcts in the past, but nothing appeared new on CT. He is to have MRI and carotids done today. Patient is seated in chair at this time and reports feeling "woozy". I asked nurse to check his vital signs which were all in normal range. No chest pain. No nausea. Currently no change in his vision. Additional Comments: A 10 system review was performed and all were negative. Positives were placed in the subjective section. Objective Vital Signs Date Time Temp Pulse Resp B/P Pulse Ox O2 Delivery O2 Flow Rate FiO2 09/14/16 08:10 Room Air 09/14/16 07:38 36.4 75 20 158/89 93 Room Air 09/14/16 00:03 36.6 72 20 162/72 93 Room Air 09/14/16 00:00 Room Air 09/13/16 19:00 36.4 69 18 109/67 95 Room Air 09/13/16 16:40 69 118/66 78 105/62 94 109/67 09/13/16 15:15 64 18 121/64 95 Room Air 09/13/16 14:24 75 22 134/78 96 Room Air 09/13/16 14:22 69 20 178/78 100 Nasal Cannula 2.0 Physical Exam Notes: GEN: Awake, alert. Not in acute distress HEENT: Tm's intact, no inflammation, EOMI, PERRLA, MMM Neck: Soft, supple Lungs: CTA b/l, no r/r/w Heart: REG, nrl S1S2 without murmurs, rubs or gallops Abdomen: Soft, NT, ND, + BS EXT: No C/C/E NEURO: CN's II-XII grossly intact. Left arm and left leg strength is 4.5/5 right is 5/5. Skin: warm, dry, no rashes PSYCH: pleasant, cooperative. Laboratory Results Last 24 Hours Test 09/13/16 22:10 09/14/16 06:05 Troponin I 0.016 ng/ml 0.017 ng/ml White Blood Count 5.88 K/uL Red Blood Count 4.43 M/uL Hemoglobin 13.4 g/dL Hematocrit 39.3 % Mean Corpuscular Volume 88.7 fL Mean Corpuscular Hemoglobin 30.2 pg Mean Corpuscular Hemoglobin Concent 34.1 g/dl RDW Standard Deviation 48.2 fL RDW Coefficient of Variation 15.0 % Platelet Count 186 K/uL Mean Platelet Volume 9.0 fL Prothrombin Time 11.1 SECONDS Prothromb Time International Ratio 1.0 Activated Partial Thromboplast Time 33.8 SECONDS Partial Thromboplastin Ratio 1.3 Sodium Level 143 mmol/L Potassium Level 4.9 mmol/L Chloride Level 111 mmol/L Carbon Dioxide Level 28 mmol/L Anion Gap 4.0 mmol/L Blood Urea Nitrogen 14 mg/dl Creatinine 0.88 mg/dl Est Creatinine Clear Calc Drug Dose 54.7 ml/min Estimated GFR () 92.7 Estimated GFR (Non- 80.0 BUN/Creatinine Ratio 15.3 Random Glucose 76 mg/dl Calcium Level 8.1 mg/dl Triglycerides Level 152 mg/dl Cholesterol Level 194 mg/dl HDL Cholesterol 33 mg/dl LDL Cholesterol, Calculated 131 mg/dl VLDL Cholesterol, Calculated 30 mg/dl Cholesterol/HDL Ratio 5.9 Assessment and Plan 1) Labile blood pressure - appears he can be high at times to symptomatically low within hours. This is a difficult condition of manage. Often we will allow the highs so as not over compensate making the low pressures even lower. 2) Dizziness - did seem related to the low pressure, but he felt this way as I was in the room and vitals were fine. 3) CVD - history of lacunar infarcts. 4) Constipation - Miralax and Senna ordered 5) BPH taking Flomax DVT prophylaxis - TEDs, SCDs, sub-q heparin.
--- NOTE | 2016-09-14 13:52 | DIAGNOSTIC IMAGING REPORT ---
MRI OF THE BRAIN COMBO CLINICAL HISTORY: Strokelike symptoms. COMPARISON STUDY: CT of the brain dated 09/13/2016. TECHNIQUE: MRI of the brain was performed utilizing various T1 and T2-weighted sequences in the axial, sagittal, and coronal planes. Contrast-enhanced sequences were acquired following the administration of 6 cc of Gadavist. FINDINGS: Brain parenchyma: There are age-related involutional changes noting moderate patchy subcortical and periventricular microangiopathic disease. A small chronic cortical infarct is identified in the right posterior parietal lobe.. Chronic old or infarcts are identified within both cerebellar hemispheres, both thalami, and the left dajuan. There is no hemorrhage or mass effect. There is no restricted diffusion to suggest acute ischemia. No enhancing mass lesion is identified on the postcontrast images. King-white matter differentiation is preserved. No extra-axial fluid collection is seen. The cerebellar tonsils are normal in configuration. Ventricles, sulci, and cisterns: Prominent secondary to involutional change. Pituitary and sella: Unremarkable. Intracranial vasculature: Normal flow voids are maintained at the skull base. Orbits: The bony orbits are grossly intact. Orbital contents are normal in appearance. Sinuses and mastoids: Clear. Calvarium: Unremarkable. Cervical cord: Partially visualized cervical spinal cord is normal in morphology and signal intensity. IMPRESSION: Senescent changes and remote infarcts as above. There is no hemorrhage, enhancing mass, or evidence of acute ischemia. Electronically signed by: Hoonrio Navarro M.D. 09/14/2016 1:51 PM Dictated Date/Time: 09/14/2016 1:47 PM
--- NOTE | 2016-09-14 14:09 | DIAGNOSTIC IMAGING REPORT ---
ULTRASOUND OF THE CAROTID ARTERIES CLINICAL HISTORY: Dizziness. COMPARISON STUDY: No priors. TECHNIQUE: Real-time, grayscale, and color Doppler sonography of the carotid arteries is performed. Images are reviewed in the transverse and longitudinal planes. FINDINGS: Blood pressures are not assessed due to the presence of IV catheters. The carotid arteries are patent bilaterally and demonstrate antegrade flow. There is moderate echogenic shadowing atherosclerotic plaque seen in the carotid bulbs bilaterally. Normal doppler arterial waveforms are seen throughout. Velocity measurements are listed below. Common carotid peak systolic velocity (cm/sec): RIGHT: 74 LEFT: 68 ICA proximal peak systolic velocity (cm/sec): RIGHT: 89 LEFT: 110 ICA mid peak systolic velocity (cm/sec): RIGHT: 69 LEFT: 69 ICA distal peak systolic velocity (cm/sec): RIGHT: 69 LEFT: 58 ICA/CC peak systolic ratio: RIGHT: 1.2 LEFT: 1.6 Antegrade flow was shown in the vertebral arteries. The external carotid arteries are patent. IMPRESSION: 1. Atherosclerotic plaque with no sonographic evidence of hemodynamically significant stenosis in the right or left carotid arterial system. 2. Antegrade flow is shown in the vertebral arteries. Electronically signed by: Honorio Navarro M.D. 09/14/2016 2:07 PM Dictated Date/Time: 09/14/2016 2:06 PM
[2016-09-14 15:04] VITALS: BP 134/70; PULSE 66; TEMP 36.4; O2SAT 94
[2016-09-14] MEDS: TRAMADOL HCL 50 MG TAB PO PRN (19:38)
[2016-09-14 23:41] VITALS: BP 138/63; PULSE 74; TEMP 36.4; O2SAT 92
[2016-09-15 07:23] VITALS: BP 148/72; PULSE 70; TEMP 36.3; O2SAT 93
[2016-09-15] MEDS: BISACODYL 5 MG TABEC PO SCH (08:46)
[2016-09-15] MEDS: ASPIRIN 81 MG ECTAB PO SCH (08:46)
[2016-09-15] MEDS: POLYETHYLENE (MIRALAX) 17 GM PACK PO SCH (08:46)
[2016-09-15] MEDS: ATORVASTATIN 20 MG TAB PO SCH (08:46)
[2016-09-15] MEDS: TAMSULOSIN HCL 0.4 MG CAP PO SCH (08:54)
[2016-09-15] MEDS: TRAMADOL HCL 50 MG TAB PO PRN ×2 (08:54→13:59)
[2016-09-15] MEDS: HEPARIN SOD 5000 UNIT/0.5 ML CARP SQ SCH ×2 (08:56→20:38)
[2016-09-15] MEDS ORDERED: LORAZEPAM 0.5 MG TAB PO PRN (10:45)
[2016-09-15] MEDS ORDERED: SOD PHOSPHATE/SOD BIPHOSPHATE ENEMA 132 ML BTL PR PRN (10:45)
[2016-09-15] MEDS ORDERED: BISACODYL 10 MG SUPP PR PRN (10:45)
[2016-09-15 11:05] VITALS: BP 143/76; PULSE 68; TEMP 36.3; O2SAT 96
[2016-09-15] MEDS ORDERED: SENNA 8.6 MG TAB PO ONE (11:15)
[2016-09-15] MEDS ORDERED: CITALOPRAM 20 MG TAB PO ONE (12:00)
[2016-09-15 13:19] VITALS: BP_SYST 156; BP_SYST 89; BP_DIAS 54; BP_DIAS 81; PULSE 87
[2016-09-15 16:24] VITALS: BP_SYST 163; BP_SYST 175; BP_DIAS 74; BP_DIAS 92; PULSE 76; TEMP 36.6; O2SAT 95
--- NOTE | 2016-09-15 17:04 | Hospitalist Progress Note ---
Hospitalist Progress Note Date of Service Sep 15, 2016. Subjective Pt evaluation today including: conversation w/ patient, physical exam, chart review, lab review, review of studies, review of inpatient medication list Patient complaining of lower abdominal pain today. This happened after am meal. He has not yet had a "good" bm. I ordered bowel regiment as his CT scan showed signs of constipation/impaction. He has not had any further lightheadedness, dizziness, or burry vision. It sounds as though his blood pressure has been labile for some time as his PCP told him to stop a blood pressure medication within the past month. He lives with a female combat systems operator mine warfare, Adriana, whom I met today. She reports that she feels Tahir has issues with anxiety as she has noticed when he seems "worked up" his blood pressure goes up and when not it is in the low range. I suppose either extreme could have caused his symptom of dizziness and blurry vision. He understands that he gets anxious at times and is willing to start medication specifically to address this issue. Additional Comments: A 10 system review was performed and all were negative. Positives were placed in the subjective section. Objective Vital Signs Date Time Temp Pulse Resp B/P Pulse Ox O2 Delivery O2 Flow Rate FiO2 09/15/16 16:24 36.6 76 20 163/92 95 Room Air 175/74 09/15/16 13:19 87 156/81 09/15/16 13:19 89/54 09/15/16 11:05 36.3 68 20 143/76 96 Room Air 09/15/16 09:35 Room Air 2.0 Nasal Cannula 09/15/16 08:20 Room Air 09/15/16 07:23 36.3 70 20 148/72 93 Room Air 09/15/16 00:25 Room Air 09/14/16 23:41 36.4 74 20 138/63 92 Room Air Physical Exam Notes: GEN: Awake, alert, and oriented x 3. Not in acute distress HEENT: Tm's intact, no inflammation, EOMI, PERRLA, MMM Neck: Soft, supple Lungs: CTA b/l, no r/r/w Heart: REG, nrl S1S2 without murmurs, rubs or gallops Abdomen: Soft, NT, + BS, Mild tenderness in the right and left lower quadrants. EXT: No C/C/E NEURO: CN's II-XII grossly intact, non-focal Skin: warm, dry, no rashes PSYCH: pleasant, cooperative. Assessment and Plan 1) Labile blood pressure - From information gathered today, it appears he normally runs a lower blood pressure, but at times of anxiety or agitation, he can elevate to high levels. 2) Dizziness/blurry vision - I did not feel this was related to his previous lacunar infarcts. I believe it to be blood pressure related which in this case could be manifestation of high or low BP. Anxiety also has come to be a factor with this patient. I have added citalopram and prn ativan to his therapies which may help both of these conditions. 3) CVD - history of lacunar infarcts, no acute infarcts, do not feel current symptoms are a manifestation of the previous insults. 4) Constipation - Miralax, Senna, Dulcolax suppositories, and fleet enema ordered. 5) BPH - taking Flomax DVT prophylaxis - TEDs, SCDs, sub-q heparin. continue PT/OT If no further symptoms and is OK with PT/OT could D/C to home tomorrow. If he would benefit from rehab I will discuss with him, but I dont see him wanting anything but to go home. Home health would be OK as he has had this in the past. In fact I think [facility] was mentioned.
[2016-09-15 23:19] VITALS: BP 152/79; PULSE 74; TEMP 36.7; O2SAT 93
[2016-09-16 06:01] LABS: HEMATOCRIT 39.9 % (42-52); MEAN CELL VOLUME 89.9 fL (80-100); MEAN CORPUSCULAR HEMOGLOBIN 30.4 pg (25-34); MEAN CORPUSCULAR HGB CONC 33.8 g/dl (32-36); MEAN PLATELET VOLUME 9.5 fL (7.4-10.4); PLATELET COUNT 221 K/uL (130-400); RED BLOOD COUNT 4.44 M/uL (4.7-6.1); WHITE BLOOD COUNT 7.83 K/uL (4.8-10.8)
[2016-09-16 07:18] VITALS: BP 130/56; PULSE 63; TEMP 35.8; O2SAT 93
[2016-09-16] MEDS: CITALOPRAM 20 MG TAB PO SCH (08:15)
[2016-09-16] MEDS: SENNA 8.6 MG TAB PO SCH (08:15)
[2016-09-16] MEDS: TAMSULOSIN HCL 0.4 MG CAP PO SCH (08:15)
[2016-09-16] MEDS: ASPIRIN 81 MG ECTAB PO SCH (08:15)
[2016-09-16] MEDS: ATORVASTATIN 20 MG TAB PO SCH (08:15)
[2016-09-16] MEDS: HEPARIN SOD 5000 UNIT/0.5 ML CARP SQ SCH ×2 (08:17→20:47)
[2016-09-16] MEDS: POLYETHYLENE (MIRALAX) 17 GM PACK PO SCH (08:17)
[2016-09-16 08:30] VITALS: O2SAT 93
[2016-09-16 15:19] VITALS: BP 124/67; PULSE 67; TEMP 36.6; O2SAT 95
[2016-09-16 16:00] VITALS: O2SAT 95
--- NOTE | 2016-09-16 18:14 | Hospitalist Progress Note ---
Hospitalist Progress Note Date of Service Sep 16, 2016. Subjective Pt evaluation today including: conversation w/ patient, physical exam, chart review, lab review, review of studies, review of inpatient medication list Patient reports that he had a bm overnight (large I understand from nursing assessment) and that from that point he has not had any pain in the lower abdomen. I noted on PT notes that the patient really would qualify for SNF with rehab. I talked both with the patient and his hospital internship about where things are at home as far as caring for himself and his hospital internship Adriana's ability to care for him as well. Adriana tells me that the patient has been 3 times prior and that he and she are not . In fact she owns the home that they live in currently. She does feel that she can take care of him, but agrees it is getting more difficult. He has two children in which he does not communicate regularly. It has come to my attention that the patient can be stubborn and at times quite agitated and verbally aggressive. The patient is agreeable to consider short term arrangement for strengthening and/or daily care , but has desire to return to home, which really is so because Adriana is agreeable to that. I feel the best plan is to look into short term expectation of rehab with the prospect of a buttermaker continuous churn care situation if the patient is not making adequate improvements. Additional Comments: A 10 system review was performed and all were negative. Positives were placed in the subjective section. Objective Vital Signs Date Time Temp Pulse Resp B/P Pulse Ox O2 Delivery O2 Flow Rate FiO2 09/16/16 15:19 36.6 67 16 124/67 95 Room Air 09/16/16 08:30 93 Room Air 09/16/16 07:18 35.8 63 16 130/56 93 Room Air 09/16/16 00:00 Room Air 09/15/16 23:19 36.7 74 18 152/79 93 Room Air Physical Exam Notes: GEN: Awake, alert, and oriented x 2 (He did not know the date today) Not in acute distress HEENT: Tm's intact, no inflammation, EOMI, PERRLA, MMM Neck: Soft, supple Lungs: CTA b/l, no r/r/w Heart: REG, nrl S1S2 without murmurs, rubs or gallops Abdomen: Soft, NT, ND, + BS EXT: No C/C/E NEURO: CN's II-XII grossly intact, Mild left hand weakness and chronic left leg weakness. Skin: warm, dry, no rashes PSYCH: A bit agitated this am, but relaxed by the afternoon. Laboratory Results Last 24 Hours Test 09/16/16 05:03 White Blood Count 7.83 K/uL Red Blood Count 4.44 M/uL Hemoglobin 13.5 g/dL Hematocrit 39.9 % Mean Corpuscular Volume 89.9 fL Mean Corpuscular Hemoglobin 30.4 pg Mean Corpuscular Hemoglobin Concent 33.8 g/dl RDW Standard Deviation 49.6 fL RDW Coefficient of Variation 15.1 % Platelet Count 221 K/uL Mean Platelet Volume 9.5 fL Assessment and Plan 1) Labile blood pressure - acceptable at this time. 2) Dizziness/blurry vision - No further episodes. 3) CVD - history of lacunar infarcts. 4) Constipation - improving, having bms, resolution of abdominal pain. 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 this has come to light as I get to know the patient day after day. 7) Urinary and fecal incontinence 8) anxiety/agitation - started citalopram and prn ativan. DVT prophylaxis - TEDs, SCDs, sub-q heparin. continue PT/OT With agreement from patient and his hospital internship, I will have social service look into placement options starting with a short term concentration with possibility for skilled nursing care. I anticipate he will be here through the weekend.
--- NOTE | 2016-09-16 19:15 | ECHOCARDIOGRAM REPORT ---
*NOTICE TO RECEIVING [employer] This information is strictly Confidential and protected under [place] law. [place] law prohibits you from making any further disclosure of this information unless further disclosure is expressly permitted by the written consent of the person to whom it pertains or is authorized by law. A general authorization for the release of medical or other information is not sufficient for this purpose. Hospital accepts no responsibility if the information is made available to any other person, INCLUDING THE PATIENT. Interpretation Summary * Name: JOSEPH MATHUR Study Date: 09/16/2016 07:37 AM BP: 121/64 mmHg * Patient Location: .4E\S\E402\S\1 HR: 123 * : 1935 (M/d/yyyy) Gender: Male Height: 69 in * Age: 81 yrs Ethnicity: [place] Weight: 131 lb * Ordering Physician: Annalisa Horvath * Referring Physician: Self, Referred * Performed By: Austyn Aranda RCS * * Reason For Study: Pulm. Congestion on CXR, Stroke work-up * BSA: 1.7 m2 * -- Conclusions -- * 1. Normal left ventricular size and systolic function. EF 60-65%. No regional wall motion abnormalities. No left ventricular hypertrophy. Type 1 diastolic dysfunction. * 2. Aortic valve sclerosis mild, without significant aortic valvular stenosis. * 3. There is mild mitral regurgitation. * 4. Mild aortic root dilatation. * 5. No visualized ASD or PFO via 2D imaging or color Doppler. Agitated saline injection demonstrated small right to left shunt, suggesting PFO. * 6. Mildly elevated estimated right ventricular systolic pressure; estimated RVSP 39 mmHg (assuming right atrial pressure of 3 mmHg). * 7. No prior study available for comparison. Procedure Details * A complete two-dimensional transthoracic echocardiogram was performed (2D, M-mode, Doppler and color flow Doppler). * A saline contrast injection was performed to assess for cardiac shunting. * The injection was performed through an intravenous line in the left arm. * The attending nurse who injected the saline contrast was Jimmy Murrieta RN. * A total of 20 cc of agitated saline was given. Left Ventricle * Normal left ventricular size and systolic function. EF 60-65%. No regional wall motion abnormalities. No left ventricular hypertrophy. Type 1 diastolic dysfunction. Right Ventricle * The right ventricle is normal in size and function. * The right ventricular systolic function is normal as assessed by tricuspid annular plane systolic excursion (TAPSE) (normal >1.5 cm). Atria * The left atrial size is normal. * Right atrial size is normal. * No visualized ASD or PFO via 2D imaging or color Doppler. Agitated saline was injected and there is a small right to left shunt, suggesting PFO. Mitral Valve * The mitral valve is grossly normal. * There is mild mitral annular calcification. * There is no mitral valve stenosis. * There is mild mitral regurgitation. Tricuspid Valve * The tricuspid valve is not well visualized, but is grossly normal. * There is no tricuspid stenosis. * There is trace tricuspid regurgitation. Aortic Valve * The aortic valve is trileaflet. * Aortic valve sclerosis mild, without significant aortic valvular stenosis. * No hemodynamically significant valvular aortic stenosis. * Mild aortic regurgitation. Pulmonic Valve * The pulmonic valve is not well visualized. * There is no pulmonic valvular stenosis. * There is no significant pulmonary regurgitation. Great Vessels * Mild aortic root dilatation. Pericardium/Pleural * There is no pericardial effusion. Great Vessels * IVC not well visualized. MMode 2D Measurements and Calculations IVSd 1.1 cm IVSs 1.2 cm LVIDd 4.2 cm LVIDs 2.9 cm LVPWd 0.94 cm LVPWs 1.5 cm IVS/LVPW 1.2 FS 31.2 % EDV(Teich) 76.5 ml ESV(Teich) 31.1 ml EF(Teich) 59.4 % EDV(cubed) 71.6 ml ESV(cubed) 23.3 ml EF(cubed) 67.4 % % IVS thick 11.9 % % LVPW thick 61.6 % LV mass(C)d 140.1 grams LV mass(C)dI 81.2 grams/m\S\2 LV mass(C)s 129.4 grams LV mass(C)sI 75.0 grams/m\S\2 CO(Teich) 2.6 l/min CI(Teich) 1.5 l/min/m\S\2 SV(Teich) 45.4 ml SI(Teich) 26.3 ml/m\S\2 CO(cubed) 2.8 l/min CI(cubed) 1.6 l/min/m\S\2 SV(cubed) 48.2 ml SI(cubed) 27.9 ml/m\S\2 Ao root diam 4.2 cm Ao root area 13.8 cm\S\2 ACS 1.9 cm LA dimension 3.6 cm LA/Ao 0.87 LVAd ap4 33.1 cm\S\2 LVLd ap4 8.8 cm EDV(MOD-sp4) 102.0 ml LVAs ap4 17.9 cm\S\2 LVLs ap4 8.0 cm ESV(MOD-sp4) 34.0 ml EF(MOD-sp4) 66.7 % LVAd ap2 33.0 cm\S\2 LVLd ap2 9.6 cm EDV(MOD-sp2) 95.0 ml LVAs ap2 17.9 cm\S\2 LVLs ap2 8.3 cm ESV(MOD-sp2) 33.0 ml EF(MOD-sp2) 65.3 % CO(MOD-sp4) 3.9 l/min CI(MOD-sp4) 2.3 l/min/m\S\2 SV(MOD-sp4) 68.0 ml SI(MOD-sp4) 39.4 ml/m\S\2 CO(MOD-sp2) 3.6 l/min CI(MOD-sp2) 2.1 l/min/m\S\2 SV(MOD-sp2) 62.0 ml SI(MOD-sp2) 35.9 ml/m\S\2 Doppler Measurements and Calculations MV E max manisha 62.6 cm/sec MV A max manisha 72.8 cm/sec MV E/A 0.86 MV dec time 0.31 sec Ao V2 max 104.4 cm/sec Ao max PG 4.4 mmHg Ao max PG (full) 2.0 mmHg AI max manisha 351.3 cm/sec AI max PG 49.4 mmHg AI dec slope 198.6 cm/sec\S\2 AI P1/2t 518.0 msec LV V1 max PG 2.4 mmHg LV V1 max 76.7 cm/sec PA V2 max 57.0 cm/sec PA max PG 1.3 mmHg TR max manisha 300.7 cm/sec
[2016-09-16 23:55] VITALS: BP 156/76; PULSE 70; TEMP 36.5; O2SAT 94
[2016-09-17 07:23] VITALS: BP 167/76; PULSE 71; TEMP 36.5; O2SAT 93
[2016-09-17] MEDS: ASPIRIN 81 MG ECTAB PO SCH (07:36)
[2016-09-17] MEDS: SENNA 8.6 MG TAB PO SCH (07:36)
[2016-09-17] MEDS: POLYETHYLENE (MIRALAX) 17 GM PACK PO SCH (07:36)
[2016-09-17] MEDS: ATORVASTATIN 20 MG TAB PO SCH (07:36)
[2016-09-17] MEDS: CITALOPRAM 20 MG TAB PO SCH (07:36)
[2016-09-17] MEDS: TAMSULOSIN HCL 0.4 MG CAP PO SCH (07:37)
[2016-09-17 07:47] VITALS: O2SAT 93
[2016-09-17] MEDS: HEPARIN SOD 5000 UNIT/0.5 ML CARP SQ SCH ×2 (09:00→21:19)
--- NOTE | 2016-09-17 10:51 | Hospitalist Progress Note ---
Hospitalist Progress Note Date of Service Sep 17, 2016. Subjective Pt evaluation today including: conversation w/ patient, physical exam, chart review, lab review, review of studies, review of inpatient medication list Patient reported sleeping well last night. He seems more relaxed today. He understands he is here until Monday to see what options he has for rehab/ strengthening. Additional Comments: A 10 system review was performed and all were negative. Positives were placed in the subjective section. Objective Vital Signs Date Time Temp Pulse Resp B/P Pulse Ox O2 Delivery O2 Flow Rate FiO2 09/17/16 07:47 93 Room Air 09/17/16 07:23 36.5 71 16 167/76 93 Room Air 09/17/16 00:00 Room Air 09/16/16 23:55 36.5 70 18 156/76 94 Room Air 09/16/16 16:00 95 Room Air 09/16/16 15:19 36.6 67 16 124/67 95 Room Air Physical Exam Notes: GEN: Awake, alert, and oriented x [address]. Not in acute distress HEENT: Tm's intact, no inflammation, EOMI, PERRLA, MMM Neck: Soft, supple Lungs: CTA b/l, no r/r/w Heart: REG, nrl S1S2 without murmurs, rubs or gallops Abdomen: Soft, NT, ND, + BS EXT: No C/C/E NEURO: CN's II-XII grossly intact, non-focal Skin: warm, dry, no rashes PSYCH: pleasant, cooperative. Assessment and Plan 1) Labile blood pressure - No significant lows, we are allowing some highs even into the 160s syst is ok. 2) Dizziness/blurry vision - No further episodes. 3) CVD - history of lacunar infarcts. 4) Constipation - improving, having bms, resolution of abdominal pain. 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 this has come to light as I get to know the patient day after day. 7) Urinary and fecal incontinence 8) anxiety/agitation - started citalopram and prn ativan. More relaxed today. DVT prophylaxis - TEDs, SCDs, sub-q heparin. continue PT/OT
[2016-09-17 15:38] VITALS: BP 99/54; PULSE 65; TEMP 37; O2SAT 95
[2016-09-17 16:00] VITALS: O2SAT 95
[2016-09-17 18:06] VITALS: BP 122/65; PULSE 67
[2016-09-17 23:40] VITALS: BP 137/72; PULSE 70; TEMP 36.5; O2SAT 93
[2016-09-18 07:20] VITALS: BP_SYST 142; BP_SYST 143; BP_DIAS 73; PULSE 64; PULSE 86; TEMP 36.9; O2SAT 92; O2SAT 93
[2016-09-18] MEDS: SENNA 8.6 MG TAB PO SCH (07:45)
[2016-09-18] MEDS: ASPIRIN 81 MG ECTAB PO SCH (07:45)
[2016-09-18] MEDS: POLYETHYLENE (MIRALAX) 17 GM PACK PO SCH (07:45)
[2016-09-18] MEDS: CITALOPRAM 20 MG TAB PO SCH (07:45)
[2016-09-18] MEDS: ATORVASTATIN 20 MG TAB PO SCH (07:45)
[2016-09-18] MEDS: TAMSULOSIN HCL 0.4 MG CAP PO SCH (07:45)
[2016-09-18] MEDS: HEPARIN SOD 5000 UNIT/0.5 ML CARP SQ SCH ×2 (07:47→20:25)
[2016-09-18 15:49] VITALS: BP 90/54; PULSE 69; TEMP 36.5; O2SAT 97
--- NOTE | 2016-09-18 19:19 | Hospitalist Progress Note ---
Hospitalist Progress Note Date of Service Sep 18, 2016. Subjective Pt evaluation today including: conversation w/ patient, physical exam, chart review, lab review, review of studies, review of inpatient medication list The patient is feeling well and he feels he is at his baseline. He was able to get to chair with PT today. Additional Comments: A 10 system review was performed and all were negative. Positives were placed in the subjective section. Objective Vital Signs Date Time Temp Pulse Resp B/P Pulse Ox O2 Delivery O2 Flow Rate FiO2 09/18/16 17:00 Room Air 09/18/16 15:49 36.5 69 16 90/54 97 Room Air 09/18/16 07:54 Room Air 09/18/16 07:20 36.9 64 16 142/73 93 Room Air 09/17/16 23:40 36.5 70 18 137/72 93 Room Air 09/17/16 23:30 Room Air Physical Exam Notes: GEN: Awake, alert. Not in acute distress HEENT: Tm's intact, no inflammation, EOMI, PERRLA, MMM Neck: Soft, supple Lungs: CTA b/l, no r/r/w Heart: REG, nrl S1S2 without murmurs, rubs or gallops Abdomen: Soft, NT, ND, + BS EXT: No C/C/E NEURO: CN's II-XII grossly intact, non-focal Skin: warm, dry, no rashes PSYCH: pleasant, cooperative. Assessment and Plan 1) Labile blood pressure - No significant lows, we are allowing some highs even into the 160s syst is ok. 2) Dizziness/blurry vision - No further episodes. 3) CVD - history of lacunar infarcts. 4) Constipation - resolved having bms, resolution of abdominal pain. 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 7) Urinary and fecal incontinence 8) anxiety/agitation - Fairly relaxed today. On Citalopram. DVT prophylaxis - TEDs, SCDs, sub-q heparin. continue PT/OT Considering transition to rehab before going home. Social service can give options to patient.
[2016-09-18 23:42] VITALS: BP 125/66; PULSE 67; TEMP 36.8; O2SAT 95
[2016-09-19] VITALS: O2SAT 95
[2016-09-19 05:32] LABS: HEMATOCRIT 41.9 % (42-52); MEAN CELL VOLUME 88.8 fL (80-100); MEAN CORPUSCULAR HEMOGLOBIN 29.9 pg (25-34); MEAN CORPUSCULAR HGB CONC 33.7 g/dl (32-36); MEAN PLATELET VOLUME 9.3 fL (7.4-10.4); PLATELET COUNT 302 K/uL (130-400); RED BLOOD COUNT 4.72 M/uL (4.7-6.1)
[2016-09-19 05:56] LABS: BUN/CREATININE RATIO 14.1 (10-20); CALCIUM 8.2 mg/dl (8.5-10.1); CREATININE 0.85 mg/dl (0.60-1.40); POTASSIUM 4.6 mmol/L (3.5-5.1)
[2016-09-19 07:17] VITALS: BP 156/76; PULSE 74; TEMP 36.6; O2SAT 94
[2016-09-19] MEDS: ASPIRIN 81 MG ECTAB PO SCH (08:40)
[2016-09-19] MEDS: TAMSULOSIN HCL 0.4 MG CAP PO SCH (08:40)
[2016-09-19] MEDS: SENNA 8.6 MG TAB PO SCH (08:40)
[2016-09-19] MEDS: ATORVASTATIN 20 MG TAB PO SCH (08:40)
[2016-09-19] MEDS: POLYETHYLENE (MIRALAX) 17 GM PACK PO SCH (08:40)
[2016-09-19] MEDS: CITALOPRAM 20 MG TAB PO SCH (08:40)
[2016-09-19] MEDS: HEPARIN SOD 5000 UNIT/0.5 ML CARP SQ SCH ×2 (08:45→21:24)
--- NOTE | 2016-09-19 09:45 | Hospitalist Progress Note ---
Hospitalist Progress Note Date of Service Sep 19, 2016. Subjective Pt evaluation today including: conversation w/ patient, physical exam, chart review, lab review, review of studies, review of inpatient medication list Patient is doing well no further dizziness or blurry vision. We treated his constipation/impaction and he has been having bms. No further abdominal pain. He does report that when he pushes deep into the right lower quadrant he has pain. He is eating well. No fever or chills. Now today he is saying that he wants to go home, but over weekend we had discussed (and he agreed) going for rehab. He tells me that his drafter assistant, Adriana can take care of him. I am not sure that she should have to have that burden as he is more debilitated after being in hospital than before. She is coming in later today perhaps social service can talk with her about the situation. Additional Comments: A 10 system review was performed and all were negative. Positives were placed in the subjective section. Objective Vital Signs Date Time Temp Pulse Resp B/P Pulse Ox O2 Delivery O2 Flow Rate FiO2 09/19/16 08:30 Room Air 09/19/16 07:17 36.6 74 16 156/76 94 Room Air 09/19/16 00:00 95 Room Air 09/18/16 23:42 36.8 67 16 125/66 95 Room Air 09/18/16 17:00 Room Air 09/18/16 15:49 36.5 69 16 90/54 97 Room Air Physical Exam Notes: GEN: Awake, alert. Not in acute distress HEENT: EOMI, PERRLA, MMM Neck: Soft, supple Lungs: CTA b/l, no r/r/w Heart: REG, nrl S1S2 without murmurs, rubs or gallops Abdomen: Soft, NT, ND, + BS. No masses noted. EXT: No C/C/E NEURO: CN's II-XII grossly intact, non-focal, Left hand and arm are mildly and chronically weak. Skin: warm, dry, no rashes PSYCH: pleasant, cooperative. Laboratory Results Last 24 Hours Test 09/19/16 05:05 White Blood Count 6.40 K/uL Red Blood Count 4.72 M/uL Hemoglobin 14.1 g/dL Hematocrit 41.9 % Mean Corpuscular Volume 88.8 fL Mean Corpuscular Hemoglobin 29.9 pg Mean Corpuscular Hemoglobin Concent 33.7 g/dl RDW Standard Deviation 49.2 fL RDW Coefficient of Variation 15.3 % Platelet Count 302 K/uL Mean Platelet Volume 9.3 fL Sodium Level 145 mmol/L Potassium Level 4.6 mmol/L Chloride Level 108 mmol/L Carbon Dioxide Level 29 mmol/L Anion Gap 8.0 mmol/L Blood Urea Nitrogen 12 mg/dl Creatinine 0.85 mg/dl Est Creatinine Clear Calc Drug Dose 56.7 ml/min Estimated GFR () 94.0 Estimated GFR (Non- 81.1 BUN/Creatinine Ratio 14.1 Random Glucose 79 mg/dl Calcium Level 8.2 mg/dl Assessment and Plan 1) Labile blood pressure - No significant lows, we are allowing some highs even into the 160s syst is ok. 2) Dizziness/blurry vision - No further episodes. 3) CVD - history of lacunar infarcts. 4) Constipation - Will check abdominal series today. 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 7) Urinary and fecal incontinence 8) anxiety/agitation - Less agitation. On Citalopram. DVT prophylaxis - TEDs, SCDs, sub-q heparin. continue PT/OT Home vs. considering transition to rehab before going home. Social service can give options to patient.
--- NOTE | 2016-09-19 11:05 | DIAGNOSTIC IMAGING REPORT ---
AP CHEST WITH ABDOMINAL SERIES CLINICAL HISTORY: Constipation. FINDINGS: An AP upright chest radiograph is compared to study dated 09/13/2016. The cardiomediastinal silhouette is unremarkable. Chronic interstitial thickening and right apical scarring is similar to previous. There is a small right pleural effusion. No airspace consolidation is seen typical for pneumonia. No pneumothorax is seen. The skeletal structures are osteopenic. Fusion hardware is noted in the lower cervical spine. Mild degenerative change is present in the thoracic spine. Supine and decubitus abdominal radiographs are correlated with abdominal CT dated 09/13/2016. There is a nonobstructed abdominal bowel gas pattern. No evidence of intraperitoneal free air is seen. There are bilateral nonobstructing renal calculi. Callus likely phleboliths are observed in the pelvis. There is rectosigmoid fecal impaction. Rectal wall thickening is suggested. Lumbosacral spondylosis is observed. The bony pelvis is grossly intact. IMPRESSION: 1. A right pleural effusion persists. 2. Nonobstructed abdominal bowel gas pattern. 3. Rectosigmoid fecal impaction persists. Rectal wall thickening is suggested and stercoral proctitis was shown on the 09/13/2016 CT scan. 4. Bilateral nephrolithiasis. Electronically signed by: Honorio Navarro M.D. 09/19/2016 11:03 AM Dictated Date/Time: 09/19/2016 10:58 AM
[2016-09-19] MEDS ORDERED: MILK AND MOLASSES ENEMA PR ONE ×2 (15:30→21:00)
[2016-09-19 15:54] VITALS: BP 133/85; PULSE 61; TEMP 36.8; O2SAT 96
[2016-09-19] MEDS: LAVAGE SOLUTION 4000ML PO SCH ×4 (16:10→19:52)
[2016-09-19] MEDS: METRONIDAZOLE / NSS 500 MG in PREMIXED NSS 100 ML IV SCH ×2 (16:14→23:34)
[2016-09-19] MEDS: CIPROFLOXACIN / D5W 400 MG in PREMIXED IN D5W 200 ML IV SCH (17:48)
[2016-09-19] MEDS ORDERED: ONDANSETRON INJ 2 MG/ML 2 ML VIAL ONE (23:58)
[2016-09-20] MEDS ORDERED: ONDANSETRON INJ 2 MG/ML 2 ML VIAL IV PRN
[2016-09-20] MEDS: CIPROFLOXACIN / D5W 400 MG in PREMIXED IN D5W 200 ML IV SCH ×3 (00:08→20:45)
[2016-09-20 00:31] VITALS: BP 111/67; PULSE 77; TEMP 36.8; O2SAT 94
[2016-09-20] MEDS: METRONIDAZOLE / NSS 500 MG in PREMIXED NSS 100 ML IV SCH ×3 (06:15→22:46)
[2016-09-20 06:52] LABS: BASO % 0.5 %; BASO ABS # 0.05 K/uL (0-0.2); COMPLETE YES; EOS % 1.6 %; HEMATOCRIT 39.4 % (42-52); IG% 0.8 %; LYMPH % 8.1 %; LYMPH ABS # 0.78 K/uL (1.2-3.4); MEAN CELL VOLUME 89.7 fL (80-100); MEAN CORPUSCULAR HEMOGLOBIN 30.5 pg (25-34); MEAN PLATELET VOLUME 9.3 fL (7.4-10.4); MONO % 7.6 %; NEUT % 81.4 %; PLATELET COUNT 318 K/uL (130-400); RED BLOOD COUNT 4.39 M/uL (4.7-6.1)
[2016-09-20 07:45] LABS: BUN/CREATININE RATIO 12.7 (10-20); CALCIUM 8.5 mg/dl (8.5-10.1); CREATININE 0.85 mg/dl (0.60-1.40); POTASSIUM 3.8 mmol/L (3.5-5.1)
[2016-09-20 07:49] VITALS: BP 133/77; PULSE 74; TEMP 36.6; O2SAT 94
[2016-09-20] MEDS: ASPIRIN 81 MG ECTAB PO SCH (08:13)
[2016-09-20] MEDS: ATORVASTATIN 20 MG TAB PO SCH (08:13)
[2016-09-20] MEDS: SENNA 8.6 MG TAB PO SCH (08:13)
[2016-09-20] MEDS: TAMSULOSIN HCL 0.4 MG CAP PO SCH (08:14)
[2016-09-20] MEDS: CITALOPRAM 20 MG TAB PO SCH (08:14)
[2016-09-20] MEDS: POLYETHYLENE (MIRALAX) 17 GM PACK PO SCH (08:14)
[2016-09-20] MEDS: HEPARIN SOD 5000 UNIT/0.5 ML CARP SQ SCH ×2 (10:00→20:48)
[2016-09-20 15:31] VITALS: BP 138/75; PULSE 68; TEMP 36.8; O2SAT 92
--- NOTE | 2016-09-20 16:58 | Hospitalist Progress Note ---
Hospitalist Progress Note Date of Service Sep 20, 2016. Subjective Pt evaluation today including: conversation w/ patient, conversation w/ family , physical exam, chart review, lab review Constitutional: No chills, No fatigue, No fever, No problem reported, No see HPI, No sweats, No weakness, No weight loss Respiratory: No cough, No dyspnea at rest, No dyspnea on exertion, No hemoptysis, No problem reported, No see HPI, No shortness of breath, No sputum, No wheezing Cardiovascular: No PND, No chest pain, No claudication, No edema, No orthopnea, No palpitations, No problem reported, No see HPI Abdomen: + pain (RLQ pain) Medications Medications (Trade) Dose Ordered Sig/Roland Route Start Time Stop Time Status Last Admin Dose Admin Miscellaneous Medication (Milk And Molasses Enema) 1 ea ONE ONCE WA 09/19/16 21:00 09/19/16 21:01 DC 09/19/16 21:24 1 EA Ondansetron HCl (Zofran Inj) 4 mg Q6H PRN IV 09/20/16 00:00 10/20/16 00:00 09/20/16 08:12 4 MG Ondansetron HCl (Zofran Inj) 4 mg STK-MED ONCE .ROUTE 09/19/16 23:58 09/20/16 00:02 DC 09/20/16 00:06 4 MG Objective Vital Signs Date Time Temp Pulse Resp B/P Pulse Ox O2 Delivery O2 Flow Rate FiO2 09/20/16 15:31 36.8 68 18 138/75 92 Room Air 09/20/16 09:22 Room Air 09/20/16 08:15 Room Air 09/20/16 07:49 36.6 74 14 133/77 94 Room Air 09/20/16 00:31 36.8 77 20 111/67 94 Room Air 09/20/16 00:00 Room Air 09/19/16 20:00 Room Air Physical Exam General Appearance: WD/WN, no apparent distress Eyes: normal inspection, PERRL ENT: normal ENT inspection, hearing grossly normal Neck: supple, no adenopathy, thyroid normal, no JVD Respiratory/Chest: chest non-tender, lungs clear, normal breath sounds Cardiovascular: regular rate, rhythm, no edema, no gallop, no murmur Abdomen: normal bowel sounds, + pertinent finding (Minimal tenderness RLQ) Extremities: normal range of motion Neurologic/Psychiatric: wringer and setter II-XII nml as tested, alert, normal mood/affect, oriented x 3 Skin: normal color Laboratory Results Last 24 Hours Test 09/20/16 06:32 White Blood Count 9.60 K/uL Red Blood Count 4.39 M/uL Hemoglobin 13.4 g/dL Hematocrit 39.4 % Mean Corpuscular Volume 89.7 fL Mean Corpuscular Hemoglobin 30.5 pg Mean Corpuscular Hemoglobin Concent 34.0 g/dl Platelet Count 318 K/uL Mean Platelet Volume 9.3 fL Neutrophils (%) (Auto) 81.4 % Lymphocytes (%) (Auto) 8.1 % Monocytes (%) (Auto) 7.6 % Eosinophils (%) (Auto) 1.6 % Basophils (%) (Auto) 0.5 % Neutrophils # (Auto) 7.81 K/uL Lymphocytes # (Auto) 0.78 K/uL Monocytes # (Auto) 0.73 K/uL Eosinophils # (Auto) 0.15 K/uL Basophils # (Auto) 0.05 K/uL RDW Standard Deviation 50.6 fL RDW Coefficient of Variation 15.6 % Immature Granulocyte % (Auto) 0.8 % Immature Granulocyte # (Auto) 0.08 K/uL Sodium Level 141 mmol/L Potassium Level 3.8 mmol/L Chloride Level 105 mmol/L Carbon Dioxide Level 27 mmol/L Anion Gap 9.0 mmol/L Blood Urea Nitrogen 11 mg/dl Creatinine 0.85 mg/dl Est Creatinine Clear Calc Drug Dose 56.7 ml/min Estimated GFR () 94.0 Estimated GFR (Non- 81.1 BUN/Creatinine Ratio 12.7 Random Glucose 104 mg/dl Calcium Level 8.5 mg/dl Diagnostic Results 09/20/16 06:32 Red Blood Count 4.39, Mean Corpuscular Volume 89.7, Mean Corpuscular Hemoglobin 30.5, Mean Corpuscular Hemoglobin Concent 34.0, Mean Platelet Volume 9.3, Neutrophils (%) (Auto) 81.4, Lymphocytes (%) (Auto) 8.1, Monocytes (%) (Auto) 7.6, Eosinophils (%) (Auto) 1.6, Basophils (%) (Auto) 0.5, Neutrophils # (Auto) 7.81, Lymphocytes # (Auto) 0.78, Monocytes # (Auto) 0.73, Eosinophils # (Auto) 0.15, Basophils # (Auto) 0.05 09/20/16 06:32 Test 09/20/16 06:32 White Blood Count 9.60 K/uL (4.8-10.8) Red Blood Count 4.39 M/uL (4.7-6.1) Hemoglobin 13.4 g/dL (14.0-18.0) Hematocrit 39.4 % (42-52) Mean Corpuscular Volume 89.7 fL (80-100) Mean Corpuscular Hemoglobin 30.5 pg (25-34) Mean Corpuscular Hemoglobin Concent 34.0 g/dl (32-36) Platelet Count 318 K/uL (130-400) Mean Platelet Volume 9.3 fL (7.4-10.4) Neutrophils (%) (Auto) 81.4 % Lymphocytes (%) (Auto) 8.1 % Monocytes (%) (Auto) 7.6 % Eosinophils (%) (Auto) 1.6 % Basophils (%) (Auto) 0.5 % Neutrophils # (Auto) 7.81 K/uL (1.4-6.5) Lymphocytes # (Auto) 0.78 K/uL (1.2-3.4) Monocytes # (Auto) 0.73 K/uL (0.11-0.59) Eosinophils # (Auto) 0.15 K/uL (0-0.5) Basophils # (Auto) 0.05 K/uL (0-0.2) RDW Standard Deviation 50.6 fL (36.4-46.3) RDW Coefficient of Variation 15.6 % (11.5-14.5) Immature Granulocyte % (Auto) 0.8 % Immature Granulocyte # (Auto) 0.08 K/uL (0.00-0.02) Anion Gap 9.0 mmol/L (3-11) Est Creatinine Clear Calc Drug Dose 56.7 ml/min Estimated GFR () 94.0 Estimated GFR (Non- 81.1 BUN/Creatinine Ratio 12.7 (10-20) Calcium Level 8.5 mg/dl (8.5-10.1) AP CHEST WITH ABDOMINAL SERIES CLINICAL HISTORY: Constipation. FINDINGS: An AP upright chest radiograph is compared to study dated 09/13/2016. The cardiomediastinal silhouette is unremarkable. Chronic interstitial thickening and right apical scarring is similar to previous. There is a small right pleural effusion. No airspace consolidation is seen typical for pneumonia. No pneumothorax is seen. The skeletal structures are osteopenic. Fusion hardware is noted in the lower cervical spine. Mild degenerative change is present in the thoracic spine. Supine and decubitus abdominal radiographs are correlated with abdominal CT dated 09/13/2016. There is a nonobstructed abdominal bowel gas pattern. No evidence of intraperitoneal free air is seen. There are bilateral nonobstructing renal calculi. Callus likely phleboliths are observed in the pelvis. There is rectosigmoid fecal impaction. Rectal wall thickening is suggested. Lumbosacral spondylosis is observed. The bony pelvis is grossly intact. IMPRESSION: 1. A right pleural effusion persists. 2. Nonobstructed abdominal bowel gas pattern. 3. Rectosigmoid fecal impaction persists. Rectal wall thickening is suggested and stercoral proctitis was shown on the 09/13/2016 CT scan. 4. Bilateral nephrolithiasis. Electronically signed by: Honorio Navarro M.D. 09/19/2016 11:03 AM Assessment and Plan 1) Labile blood pressure - BP stable. . 2) Dizziness/blurry vision - No further episodes. 3) CVD - history of lacunar infarcts. 4) Constipation - Cont. with enemas. 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 7) Urinary and fecal incontinence 8) anxiety/agitation - Less agitation. On Citalopram. DVT prophylaxis - TEDs, SCDs, sub-q heparin. continue PT/OT
[2016-09-21 00:21] VITALS: BP 138/72; PULSE 69; TEMP 36.5; O2SAT 94
[2016-09-21] MEDS: METRONIDAZOLE / NSS 500 MG in PREMIXED NSS 100 ML IV SCH ×2 (05:43→14:57)
[2016-09-21] MEDS: SENNA 8.6 MG TAB PO SCH (07:33)
[2016-09-21] MEDS: TAMSULOSIN HCL 0.4 MG CAP PO SCH (07:33)
[2016-09-21] MEDS: ATORVASTATIN 20 MG TAB PO SCH (07:33)
[2016-09-21] MEDS: CITALOPRAM 20 MG TAB PO SCH (07:33)
[2016-09-21] MEDS: ASPIRIN 81 MG ECTAB PO SCH (07:33)
[2016-09-21] MEDS: POLYETHYLENE (MIRALAX) 17 GM PACK PO SCH (07:34)
[2016-09-21 07:41] VITALS: BP 122/62; PULSE 67; TEMP 36.4; O2SAT 94
[2016-09-21 07:54] LABS: BASO % 0.5 %; BASO ABS # 0.04 K/uL (0-0.2); COMPLETE YES; EOS % 4.5 %; HEMATOCRIT 40.1 % (42-52); IG% 0.7 %; LYMPH % 12.8 %; LYMPH ABS # 0.94 K/uL (1.2-3.4); MEAN CELL VOLUME 90.9 fL (80-100); MEAN CORPUSCULAR HEMOGLOBIN 30.8 pg (25-34); MEAN CORPUSCULAR HGB CONC 33.9 g/dl (32-36); MEAN PLATELET VOLUME 9.4 fL (7.4-10.4); MONO % 8.3 %; NEUT % 73.2 %; PLATELET COUNT 313 K/uL (130-400); RED BLOOD COUNT 4.41 M/uL (4.7-6.1); WHITE BLOOD COUNT 7.33 K/uL (4.8-10.8)
[2016-09-21 08:22] LABS: BUN/CREATININE RATIO 10.9 (10-20); CALCIUM 7.9 mg/dl (8.5-10.1); CREATININE 0.86 mg/dl (0.60-1.40); POTASSIUM 4.1 mmol/L (3.5-5.1)
--- NOTE | 2016-09-21 08:28 | Hospitalist Progress Note ---
Hospitalist Progress Note Date of Service Sep 21, 2016. Subjective Pt evaluation today including: conversation w/ patient, physical exam, chart review Objective Vital Signs Date Time Temp Pulse Resp B/P Pulse Ox O2 Delivery O2 Flow Rate FiO2 09/21/16 07:41 36.4 67 16 122/62 94 Room Air 09/21/16 00:21 36.5 69 18 138/72 94 Room Air 09/21/16 00:00 Room Air 09/20/16 16:20 Room Air 09/20/16 15:31 36.8 68 18 138/75 92 Room Air 09/20/16 09:22 Room Air Physical Exam General Appearance: WD/WN Eyes: normal inspection, PERRL ENT: normal ENT inspection, hearing grossly normal Neck: supple, no adenopathy, thyroid normal Respiratory/Chest: chest non-tender, lungs clear, normal breath sounds Cardiovascular: regular rate, rhythm, no edema, no gallop Abdomen: normal bowel sounds, non tender, soft Extremities: normal range of motion, non-tender, normal inspection Neurologic/Psychiatric: 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, oriented x 3 Laboratory Results Last 24 Hours Test 09/21/16 07:23 White Blood Count 7.33 K/uL Red Blood Count 4.41 M/uL Hemoglobin 13.6 g/dL Hematocrit 40.1 % Mean Corpuscular Volume 90.9 fL Mean Corpuscular Hemoglobin 30.8 pg Mean Corpuscular Hemoglobin Concent 33.9 g/dl Platelet Count 313 K/uL Mean Platelet Volume 9.4 fL Neutrophils (%) (Auto) 73.2 % Lymphocytes (%) (Auto) 12.8 % Monocytes (%) (Auto) 8.3 % Eosinophils (%) (Auto) 4.5 % Basophils (%) (Auto) 0.5 % Neutrophils # (Auto) 5.36 K/uL Lymphocytes # (Auto) 0.94 K/uL Monocytes # (Auto) 0.61 K/uL Eosinophils # (Auto) 0.33 K/uL Basophils # (Auto) 0.04 K/uL RDW Standard Deviation 51.9 fL RDW Coefficient of Variation 15.7 % Immature Granulocyte % (Auto) 0.7 % Immature Granulocyte # (Auto) 0.05 K/uL Sodium Level 140 mmol/L Potassium Level 4.1 mmol/L Chloride Level 107 mmol/L Carbon Dioxide Level 27 mmol/L Anion Gap 6.0 mmol/L Blood Urea Nitrogen 9 mg/dl Creatinine 0.86 mg/dl Est Creatinine Clear Calc Drug Dose 56.0 ml/min Estimated GFR () 93.6 Estimated GFR (Non- 80.8 BUN/Creatinine Ratio 10.9 Random Glucose 97 mg/dl Calcium Level 7.9 mg/dl Assessment and Plan 1) Labile blood pressure - BP stable. . 2) Dizziness/blurry vision - No further episodes. 3) CVD - history of lacunar infarcts. 4) Constipation - Cont. with enemas. 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 7) Urinary and fecal incontinence 8) anxiety/agitation - Less agitation. On Citalopram. DVT prophylaxis - TEDs, SCDs, sub-q heparin. continue PT/OT
[2016-09-21] MEDS: CIPROFLOXACIN / D5W 400 MG in PREMIXED IN D5W 200 ML IV SCH (10:22)
[2016-09-21] MEDS: HEPARIN SOD 5000 UNIT/0.5 ML CARP SQ SCH ×2 (10:26→21:33)
[2016-09-21 15:00] VITALS: BP 97/56; PULSE 56; TEMP 36.4; O2SAT 93
[2016-09-21] MEDS: TRAMADOL HCL 50 MG TAB PO PRN (16:22)
[2016-09-21 23:51] VITALS: BP 119/32; PULSE 65; TEMP 36.7; O2SAT 93
[2016-09-22 07:20] LABS: HEMATOCRIT 39.2 % (42-52); MEAN CELL VOLUME 91.6 fL (80-100); MEAN CORPUSCULAR HEMOGLOBIN 30.4 pg (25-34); MEAN CORPUSCULAR HGB CONC 33.2 g/dl (32-36); MEAN PLATELET VOLUME 9.6 fL (7.4-10.4); PLATELET COUNT 307 K/uL (130-400); RED BLOOD COUNT 4.28 M/uL (4.7-6.1); WHITE BLOOD COUNT 5.96 K/uL (4.8-10.8)
[2016-09-22 08:00] VITALS: BP 123/66; PULSE 58; TEMP 36.6; O2SAT 93
[2016-09-22] MEDS: ASPIRIN 81 MG ECTAB PO SCH (08:12)
[2016-09-22] MEDS: ATORVASTATIN 20 MG TAB PO SCH (08:12)
[2016-09-22] MEDS: SENNA 8.6 MG TAB PO SCH (08:12)
[2016-09-22] MEDS: CITALOPRAM 20 MG TAB PO SCH (08:12)
[2016-09-22] MEDS: TAMSULOSIN HCL 0.4 MG CAP PO SCH (08:13)
[2016-09-22] MEDS: POLYETHYLENE (MIRALAX) 17 GM PACK PO SCH (08:13)
[2016-09-22] MEDS: HEPARIN SOD 5000 UNIT/0.5 ML CARP SQ SCH ×2 (08:17→21:38)
--- NOTE | 2016-09-22 14:06 | DIAGNOSTIC IMAGING REPORT ---
AP CHEST WITH ABDOMINAL SERIES CLINICAL HISTORY: Constipation. FINDINGS: An AP upright chest radiograph is compared to study dated 09/19/2016. The examination is degraded by patient rotation. The cardiomediastinal silhouette is unremarkable. Chronic interstitial thickening and biapical scarring are similar to previous. There is a small right pleural effusion. No airspace consolidation is seen typical for pneumonia. No pneumothorax is seen. The skeletal structures are osteopenic. Fusion hardware is noted in the lower cervical spine. Mild degenerative change is present in the thoracic spine. Supine and decubitus abdominal radiographs are correlated with abdominal CT dated 09/19/2016. There is a nonobstructed abdominal bowel gas pattern. No evidence of intraperitoneal free air is seen. There are bilateral nonobstructing renal calculi. Calcified phleboliths are observed in the pelvis. Rectosigmoid impaction appears improved from 09/19/2016. Mild fecal retention persists in the left colon. Lumbosacral spondylosis is observed. The bony pelvis is grossly intact. IMPRESSION: 1. A right pleural effusion persists. The lungs are otherwise clear. 2. Nonobstructed abdominal bowel gas pattern. 3. Rectosigmoid fecal impaction appears improved from 09/19/2016. 4. Bilateral nephrolithiasis. Electronically signed by: Honorio Navarro M.D. 09/22/2016 2:05 PM Dictated Date/Time: 09/22/2016 2:03 PM
[2016-09-22 15:48] VITALS: BP 114/57; PULSE 60; TEMP 37; O2SAT 93
--- NOTE | 2016-09-22 16:58 | Discharge Summary ---
Discharge Summary Date of Service Sep 22, 2016. Discharge Summary Admission Date: Sep 13, 2016 at 15:07 Discharge Date: Sep 22, 2016 Discharge Disposition: Home Principal Diagnosis: TIA Problems/Secondary Diagnoses: Fecal impaction Immunizations: Have You Had Influenza Vaccine: No History of Tetanus Vaccine?: Unknown History of Pneumococcal: No History of Hepatitis B Vaccine: No Procedures: CT HEAD WITHOUT CONTRAST (CT) CLINICAL HISTORY: Acute change in mental status. Confusion. COMPARISON STUDY: 04/14/2013 TECHNIQUE: Axial CT of the brain is performed from the vertex to the skull base. IV contrast was not administered for this examination. CT DOSE: 614.27 mGy.cm FINDINGS: No intra or extra-axial mass lesions are visualized. There is no CT evidence of acute cortical infarction. There is no evidence of midline shift. There is no acute hemorrhage. No calvarial fractures are visualized. There are patchy white matter hypodensities likely on a small vessel basis. There are lacunar infarcts involving both thalami as well as the left cerebellar hemisphere. These appear old, but were not present on the prior 2012 study.. There is no evidence of pathologic ventricular dilatation. There is no evidence of acute sinusitis IMPRESSION: Interval development of lacunar infarcts involving both thalami and the left cerebellar hemisphere. These do not appear acute. Electronically signed by: Lio Fleming M.D. ABDOMEN AND PELVIS CT WITH IV CONTRAST CT DOSE: 319.70 mGy.cm HISTORY: Pain Pt c/o RLQ abd pain TECHNIQUE: Multiaxial CT images of the abdomen and pelvis were performed following the use of intravenous contrast. COMPARISON STUDY: 04/01/2013 FINDINGS: Interval development of right pleural effusion. Minimal superimposed basilar atelectasis. Mild fatty infiltration of liver. Several gallstones within the gallbladder lumen unchanged. Several calcifications within the pancreas consistent with chronic pancreatitis. Cystic lesion of the pancreatic head 1.3 cm maximum dimension. This is similar to the prior study 1.2 cm. Kidneys demonstrate several nonobstructing renal calcifications bilaterally. There is no evidence for an obstructing urinary tract calculus. Mild distention of the infrarenal aspect abdominal aorta 2.6 cm. This is similar to the prior study 2.7 cm. Bowel pattern overall is nonobstructive. The appendix is identified at least in part and appears to be unremarkable. Mild prominence of the distal aspect of the right ureter is unchanged in the prior study. There is a significant fecal impaction within the rectum. Bladder somewhat displaced anteriorly. IMPRESSION: 1. Rather significant fecal impaction of the rectum. 2. Study is negative for appendicitis. 3. Nonobstructive bowel pattern. 4. Stable cystic nodule the pancreatic head. 5. Several nonobstructing renal calcifications unchanged. 6. Interval development of a right pleural effusion with mild bibasilar atelectatic change Electronically signed by: Lencho Barrios M.D. 09/13/2016 12:39 PM COMPARISON STUDY: No priors. TECHNIQUE: Real-time, grayscale, and color Doppler sonography of the carotid arteries is performed. Images are reviewed in the transverse and longitudinal planes. FINDINGS: Blood pressures are not assessed due to the presence of IV catheters. The carotid arteries are patent bilaterally and demonstrate antegrade flow. There is moderate echogenic shadowing atherosclerotic plaque seen in the carotid bulbs bilaterally. Normal doppler arterial waveforms are seen throughout. Velocity measurements are listed below. Common carotid peak systolic velocity (cm/sec): RIGHT: 74 LEFT: 68 ICA proximal peak systolic velocity (cm/sec): RIGHT: 89 LEFT: 110 ICA mid peak systolic velocity (cm/sec): RIGHT: 69 LEFT: 69 ICA distal peak systolic velocity (cm/sec): RIGHT: 69 LEFT: 58 ICA/CC peak systolic ratio: RIGHT: 1.2 LEFT: 1.6 Antegrade flow was shown in the vertebral arteries. The external carotid arteries are patent. IMPRESSION: 1. Atherosclerotic plaque with no sonographic evidence of hemodynamically significant stenosis in the right or left carotid arterial system. 2. Antegrade flow is shown in the vertebral arteries. TECHNIQUE: MRI of the brain was performed utilizing various T1 and T2-weighted sequences in the axial, sagittal, and coronal planes. Contrast-enhanced sequences were acquired following the administration of 6 cc of Gadavist. FINDINGS: Brain parenchyma: There are age-related involutional changes noting moderate patchy subcortical and periventricular microangiopathic disease. A small chronic cortical infarct is identified in the right posterior parietal lobe.. Chronic old or infarcts are identified within both cerebellar hemispheres, both thalami, and the left dajuan. There is no hemorrhage or mass effect. There is no restricted diffusion to suggest acute ischemia. No enhancing mass lesion is identified on the postcontrast images. King-white matter differentiation is preserved. No extra-axial fluid collection is seen. The cerebellar tonsils are normal in configuration. Ventricles, sulci, and cisterns: Prominent secondary to involutional change. Pituitary and sella: Unremarkable. Intracranial vasculature: Normal flow voids are maintained at the skull base. Orbits: The bony orbits are grossly intact. Orbital contents are normal in appearance. Sinuses and mastoids: Clear. Calvarium: Unremarkable. Cervical cord: Partially visualized cervical spinal cord is normal in morphology and signal intensity. IMPRESSION: Senescent changes and remote infarcts as above. There is no hemorrhage, enhancing mass, or evidence of acute ischemia. Electronically signed by: Honorio Navarro M.D. 09/14/2016 1:51 PM AP CHEST WITH ABDOMINAL SERIES CLINICAL HISTORY: Constipation. FINDINGS: An AP upright chest radiograph is compared to study dated 09/19/2016. The examination is degraded by patient rotation. The cardiomediastinal silhouette is unremarkable. Chronic interstitial thickening and biapical scarring are similar to previous. There is a small right pleural effusion. No airspace consolidation is seen typical for pneumonia. No pneumothorax is seen. The skeletal structures are osteopenic. Fusion hardware is noted in the lower cervical spine. Mild degenerative change is present in the thoracic spine. Supine and decubitus abdominal radiographs are correlated with abdominal CT dated 09/19/2016. There is a nonobstructed abdominal bowel gas pattern. No evidence of intraperitoneal free air is seen. There are bilateral nonobstructing renal calculi. Calcified phleboliths are observed in the pelvis. Rectosigmoid impaction appears improved from 09/19/2016. Mild fecal retention persists in the left colon. Lumbosacral spondylosis is observed. The bony pelvis is grossly intact. IMPRESSION: 1. A right pleural effusion persists. The lungs are otherwise clear. 2. Nonobstructed abdominal bowel gas pattern. 3. Rectosigmoid fecal impaction appears improved from 09/19/2016. 4. Bilateral nephrolithiasis. Electronically signed by: Honorio Navarro M.D. 09/22/2016 2:05 PM ECHOCARDIOGRAM AUGUST 2016 * -- Conclusions -- * 1. Normal left ventricular size and systolic function. EF 60-65%. No regional wall motion abnormalities. No left ventricular hypertrophy. Type 1 diastolic dysfunction. * 2. Aortic valve sclerosis mild, without significant aortic valvular stenosis. * 3. There is mild mitral regurgitation. * 4. Mild aortic root dilatation. * 5. No visualized ASD or PFO via 2D imaging or color Doppler. Agitated saline injection demonstrated small right to left shunt, suggesting PFO. * 6. Mildly elevated estimated right ventricular systolic pressure; estimated RVSP 39 mmHg (assuming right atrial pressure of 3 mmHg). * 7. No prior study available for comparison. Medication Reconciliation New Medications: Aspirin (Aspirin EC Low Dose) 81 Mg Ectab 81 MG PO QAM for 30 Days, #30 TABS 6 Refills Atorvastatin (Atorvastatin Calcium) 20 Mg Tab 20 MG PO QAM for 30 Days, #30 TAB 5 Refills Citalopram (Citalopram Hydrobromide) 20 Mg Tab 20 MG PO QAM for 30 Days, #30 TAB 8 Refills Polyethylene (Miralax) 17 Gm Pow 17 GM PO DAILY PRN for Constipation for 30 Days, #30 PKT Continued Medications: Acetaminophen (Tylenol) 325 Mg Tab 325 MG PO QID PRN for Pain, TAB Bisacodyl (Dulcolax) 5 Mg Tab Unknown Dose PO UD for 1 Day, #2 TAB Tamsulosin Hcl (Flomax) 0.4 Mg Cap 0.4 MG PO DAILY, CAP Tramadol HCl (Tramadol HCl) 50 Mg Tab 50 MG PO Q4H PRN for Pain for 3 Days, #12 TAB Discharge Exam Physical Exam: General Appearance: WD/WN, no apparent distress Eyes: normal inspection, PERRL ENT: normal ENT inspection, TMs normal Neck: supple Respiratory/Chest: chest non-tender, lungs clear, normal breath sounds Cardiovascular: regular rate, rhythm, no edema, no gallop Abdomen / GI: normal bowel sounds, non tender, soft, no organomegaly Extremities: normal inspection, no calf tenderness 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 Patient states that yesterday after having the physical therapy, his BP reading was low (couldn't recall the exact BP). Physical therapist informed the nurse, who came the next day to his house and also found to have low BP (systolic in 90s and Diastolic in 40s). While he was sitting down and talking to the nurse, he felt dizzy. He describes the dizziness as "everything looks strange". His vision was blurry also. For past couple of months he is feeling weak. His appetite decreased also. His left arm is weaker than the right arm. He also has b/l lower extremities weakness. According to the at home he moves around with transporter. He also complains of constipation and abdominal discomfort, mostly on the RLQ. He usually takes Dulcolax at home. He didn't have bowel movements for past few days. Denies chest pain, SOB, change in vision, heart palpitation, headache, lightheadedness, or any other additional symptoms. 1) Labile blood pressure - BP stable. . 2) Dizziness/blurry vision - No further episodes. 3) CVD - history of lacunar infarcts. Started on ASA 81mg daily and Atorvastatin 20mg qhs 4) Constipation - Cont. with enemas. 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 7) Urinary and fecal incontinence 8) anxiety/agitation - Less agitation. On Citalopram. DVT prophylaxis - TEDs, SCDs, sub-q heparin. continue PT/OT Total Time Spent: Greater than 30 minutes This includes examination of the patient, discharge planning, medication reconciliation, and communication with other providers. Discharge Instructions Please refer to the electronic Patient Visit Report (Discharge Instructions) for additional information. Follow-Up PCP in one to two weeks
[2016-09-22] MEDS ORDERED: MRLP17X PO (17:14)
[2016-09-22] MEDS ORDERED: CLX20 PO (17:14)
[2016-09-22] MEDS ORDERED: ASPEC81 PO (17:14)
[2016-09-22] MEDS ORDERED: LPT20 PO (17:14)
--- NOTE | 2016-09-22 17:16 | Discharge Instructions ---
Discharge Instructions Date of Service Sep 22, 2016. Admission Reason for Admission: Dizziness Discharge Discharge Diagnosis / Problem: TIA Discharge Goals Goal(s): Improve function Activity Recommendations Activity Limitations: resume your previous activity Lifting Limitations: none Exercise/Sports Limitations: none May Resume Sexual Activity: when tolerated Shower/Bathe: no limitations Driving or Machine Use: no limitations . Instructions / Follow-Up Instructions / Follow-Up Follow up with PCP in one to two weeks Current Hospital Diet Patient's current hospital diet: Regular Diet, AHA Diet (Heart Healthy) Discharge Diet Recommended Diet: AHA Diet (Heart Healthy) Pending Studies Studies pending at discharge: no Laboratory Results Hemoglobin A1c Test 09/13/16 09:53 Range/Units Estimated Average Glucose 123 mg/dl Hemoglobin A1c 5.9 H 4.5-5.6 % Lipid Panel Test 09/14/16 06:05 Range/Units Triglycerides Level 152 H 0-150 mg/dl Cholesterol Level 194 0-200 mg/dl HDL Cholesterol 33 mg/dl Cholesterol/HDL Ratio 5.9 LDL Cholesterol, Calculated 131 mg/dl Medical Emergencies . Who to Call and When: Medical Emergencies: If at any time you feel your situation is an emergency, please call 911 immediately. . Non-Emergent Contact Non-Emergency issues call your: Primary Care Provider . Past History Medical & Surgical History: (1) Dizziness (2) CVA (cerebral vascular accident) (3) Constipation . "Provider Documentation" section prepared by Isaac More. VTE Core Measure Inpt VTE Proph given/why not?: Unfractionated heparin SQ
[2016-09-22 23:54] VITALS: BP 100/58; PULSE 64; TEMP 36.7; O2SAT 94
[2016-09-23 07:14] VITALS: BP 179/66; PULSE 66; TEMP 36.5; O2SAT 94
[2016-09-23] MEDS: ATORVASTATIN 20 MG TAB PO SCH (08:58)
[2016-09-23] MEDS: SENNA 8.6 MG TAB PO SCH (08:58)
[2016-09-23] MEDS: CITALOPRAM 20 MG TAB PO SCH (08:58)
[2016-09-23] MEDS: POLYETHYLENE (MIRALAX) 17 GM PACK PO SCH (08:58)
[2016-09-23] MEDS: TAMSULOSIN HCL 0.4 MG CAP PO SCH (08:58)
[2016-09-23] MEDS: ASPIRIN 81 MG ECTAB PO SCH (08:58)
[2016-09-23] MEDS: HEPARIN SOD 5000 UNIT/0.5 ML CARP SQ SCH (09:01)
[2016-09-23 10:31] VITALS: BP 179/66; PULSE 66; TEMP 36.5; O2SAT 94
--- NOTE | 2016-09-23 11:01 | Hospitalist Progress Note ---
Hospitalist Progress Note Date of Service Sep 23, 2016. Subjective Pt evaluation today including: conversation w/ patient, physical exam, chart review Voiding: no voiding problems Objective Vital Signs Date Time Temp Pulse Resp B/P Pulse Ox O2 Delivery O2 Flow Rate FiO2 09/23/16 10:31 36.5 66 18 94 Room Air 09/23/16 07:14 36.5 66 18 179/66 94 Room Air 09/23/16 00:45 Room Air 09/22/16 23:54 36.7 64 18 100/58 94 Room Air 09/22/16 16:15 Room Air 09/22/16 15:48 37.0 60 16 114/57 93 Physical Exam General Appearance: no apparent distress Eyes: normal inspection ENT: normal ENT inspection Neck: no adenopathy, thyroid normal Respiratory/Chest: chest non-tender, lungs clear Cardiovascular: regular rate, rhythm, no edema Abdomen: normal bowel sounds Extremities: normal range of motion Neurologic/Psychiatric: erisa attorney II-XII nml as tested, oriented x 3 Skin: normal color Laboratory Results 09/22/16 06:40 09/21/16 07:23 Test 09/13/16 09:53 09/13/16 11:16 09/13/16 11:30 09/14/16 06:05 Estimated Average Glucose 123 mg/dl Hemoglobin A1c 5.9 % (4.5-5.6) Total Bilirubin 0.8 mg/dl (0.2-1) Direct Bilirubin 0.2 mg/dl (0-0.2) Aspartate Amino Transf (AST/SGOT) 21 U/L (15-37) Alanine Aminotransferase (ALT/SGPT) 19 U/L (12-78) Alkaline Phosphatase 88 U/L (45-117) Total Creatine Kinase 33 U/L (39-308) Creatine Kinase MB 1.2 ng/ml (0.5-3.6) Creatine Kinase MB Ratio 3.6 (0-3.0) Total Protein 6.7 gm/dl (6.4-8.2) Albumin 3.1 gm/dl (3.4-5.0) Thyroid Stimulating Hormone (TSH) 1.570 uIu/ml (0.300-4.500) Bedside Glucose 124 mg/dl (70-99) Urine Color DK YELLOW Urine Appearance CLEAR (CLEAR) Urine pH 5.5 (4.5-7.5) Urine Specific [place] 1.021 (1.000-1.030) Urine Protein NEG (NEG) Urine Glucose (UA) NEG (NEG) Urine Ketones NEG (NEG) Urine Occult Blood 1+ (NEG) Urine Nitrite NEG (NEG) Urine Bilirubin NEG (NEG) Urine Urobilinogen NEG (NEG) Urine Leukocyte Esterase NEG (NEG) Urine WBC (Auto) 1-5 /hpf (0-5) Urine RBC (Auto) >30 /hpf (0-4) Urine Hyaline Casts (Auto) 1-5 /lpf (0-5) Urine Epithelial Cells (Auto) 10-20 /lpf (0-5) Urine Bacteria (Auto) NEG (NEG) Prothrombin Time 11.1 SECONDS (9.0-12.0) Prothromb Time International Ratio 1.0 (0.9-1.1) Activated Partial Thromboplast Time 33.8 SECONDS (21.0-31.0) Partial Thromboplastin Ratio 1.3 Triglycerides Level 152 mg/dl (0-150) Cholesterol Level 194 mg/dl (0-200) HDL Cholesterol 33 mg/dl LDL Cholesterol, Calculated 131 mg/dl VLDL Cholesterol, Calculated 30 mg/dl Cholesterol/HDL Ratio 5.9 Test 09/14/16 16:40 09/21/16 07:23 09/22/16 06:40 Troponin I < 0.015 ng/ml (0-0.045) Immature Granulocyte % (Auto) 0.7 % White Blood Count 7.33 K/uL (4.8-10.8) Red Blood Count 4.41 M/uL (4.7-6.1) 4.28 M/uL (4.7-6.1) Hemoglobin 13.6 g/dL (14.0-18.0) Hematocrit 40.1 % (42-52) Mean Corpuscular Volume 90.9 fL (80-100) 91.6 fL (80-100) Mean Corpuscular Hemoglobin 30.8 pg (25-34) 30.4 pg (25-34) Mean Corpuscular Hemoglobin Concent 33.9 g/dl (32-36) 33.2 g/dl (32-36) Platelet Count 313 K/uL (130-400) Mean Platelet Volume 9.4 fL (7.4-10.4) 9.6 fL (7.4-10.4) Neutrophils (%) (Auto) 73.2 % Lymphocytes (%) (Auto) 12.8 % Monocytes (%) (Auto) 8.3 % Eosinophils (%) (Auto) 4.5 % Basophils (%) (Auto) 0.5 % Neutrophils # (Auto) 5.36 K/uL (1.4-6.5) Lymphocytes # (Auto) 0.94 K/uL (1.2-3.4) Monocytes # (Auto) 0.61 K/uL (0.11-0.59) Eosinophils # (Auto) 0.33 K/uL (0-0.5) Basophils # (Auto) 0.04 K/uL (0-0.2) Immature Granulocyte # (Auto) 0.05 K/uL (0.00-0.02) Anion Gap 6.0 mmol/L (3-11) Est Creatinine Clear Calc Drug Dose 56.0 ml/min Estimated GFR () 93.6 Estimated GFR (Non- 80.8 BUN/Creatinine Ratio 10.9 (10-20) Calcium Level 7.9 mg/dl (8.5-10.1) RDW Standard Deviation 52.6 fL (36.4-46.3) RDW Coefficient of Variation 15.9 % (11.5-14.5) Assessment and Plan Admit note: This is a 81 y/o male with no significant PMHx presented to the ED complaining of dizziness and blurry vision since this morning. Patient states that yesterday after having the physical therapy, his BP reading was low (couldn 't recall the exact BP). Physical therapist informed the nurse, who came the next day to his house and also found to have low BP (systolic in 90s and Diastolic in 40s). While he was sitting down and talking to the nurse, he felt dizzy. He describes the dizziness as "everything looks strange". His vision was blurry also. For past couple of months he is feeling weak. His appetite decreased also. His left arm is weaker than the right arm. He also has b/l lower extremities weakness. According to the at home he moves around with transporter. He also complains of constipation and abdominal discomfort, mostly on the RLQ. He usually takes Dulcolax at home. He didn't have bowel movements for past few days. Denies chest pain, SOB, change in vision, heart palpitation, headache, lightheadedness, or any other additional symptoms. No complaints today. Will be dc'ed to [facility] today. 1) Labile blood pressure - BP stable. . 2) Dizziness/blurry vision - No further episodes. 3) CVD - history of lacunar infarcts. Started on ASA 81mg daily and Atorvastatin 20mg qhs 4) Constipation - Cont. with enemas. 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 7) Urinary and fecal incontinence 8) anxiety/agitation - Less agitation. On Citalopram. DVT prophylaxis - TEDs, SCDs, sub-q heparin. continue PT/OT
[2016-09-29] MEDS ORDERED: LORA0.5T12 PO (13:46)
[2016-09-29] MEDS ORDERED: [UNRECOGNIZED DRUG - CODE] (13:46)
[2016-09-29] MEDS ORDERED: DOCU100C31 PO (13:46)
[2016-09-29] MEDS ORDERED: SENN-65 PO (13:46)
[2016-09-29] MEDS ORDERED: HPRI5M SQ (13:46)
[2016-09-29] MEDS ORDERED: MOML PO (13:49)
[2016-09-29] MEDS ORDERED: TRAZ50TA35 PO (13:49)
[2016-09-29] MEDS ORDERED: ONDA4TAB46 PO (13:49)
[2017-04-25] MEDS ORDERED: CIPR1TAB11 PO (08:19)
[2017-05-05] MEDS ORDERED: SULF800T23 PO (08:19)
[2017-05-05] MEDS ORDERED: AMOX500C3 PO (08:23)
== END 2016-09-23 14:16 | DRG 69 ==
LOC: ENRESERVTM → ENRESERVDT → EDBD 10:16 → C.EDA 10:18 → C.4E 15:07
PROVIDERS: ADMIT Hospitalist; ATTEND Hospitalist
DX: G45.9 Transient cerebral ischemic attack, unspecified (principal); J90 Pleural effusion, not elsewhere classified; J45.909 Unspecified asthma, uncomplicated; I12.9 Hypertensive chronic kidney disease with stage 1 through stage 4 chronic kidney disease, or unspecified chronic kidney disease; N18.9 Chronic kidney disease, unspecified; Z87.891 Personal history of nicotine dependence; K76.0 Fatty (change of) liver, not elsewhere classified; K56.41 Fecal impaction; N20.0 Calculus of kidney; N40.1 Benign prostatic hyperplasia with lower urinary tract symptoms; F02.80 Dementia in other diseases classified elsewhere, unspecified severity, without behavioral disturbance, psychotic disturbance, mood disturbance, and anxiety; R15.9 Full incontinence of feces

== ENCOUNTER 2017-03-07 12:18 | Emergency (ER) | payer OTHER, MEDICARE ==
[~2017-03-07] VITALS: Ht 175.3 cm; Wt 53.8 kg
[~2017-03-07 12:18] MED LIST changes: -AMLO-110 PO; +ASPEC81 PO; +CLX20 PO; +DOCU100C31 PO; +LORA0.5T12 PO; +LPT20 PO; +MOML PO; +MRLP17X PO; -NYSP EXT; +ONDA4TAB46 PO; +SENN-65 PO; +TAMS0.4C38 PO; -TAMS0.4C59 PO; +TRAZ50TA35 PO
[2017-03-07 12:41] VITALS: TEMP 36.8; Ht 175.3 cm; Wt 53.8 kg
[2017-03-07 12:56] VITALS: O2SAT 94
[2017-03-07] MEDS ORDERED: SODIUM CHLORIDE 0.9% 500ML 500 ML IV STA (13:41)
--- NOTE | 2017-03-07 14:10 | DIAGNOSTIC IMAGING REPORT ---
CHEST ONE VIEW PORTABLE HISTORY: Weakness. COMPARISON: Chest 09/22/2016. FINDINGS: Cervical spinal fusion hardware. The patient is slightly rotated on this study. The heart is normal in size. Mild interstitial thickening which is likely chronic. This remains unchanged. No new focal lung consolidations to suggest pneumonia. No evidence for pulmonary edema. Stable blunting of the costophrenic sulci suggesting trace pleural effusions. No pneumothorax. IMPRESSION: 1. No change in the trace bilateral pleural effusions. 2. Mild chronic interstitial thickening is also stable. 3. No new focal lung consolidations. No evidence for pulmonary edema. Electronically signed by: Kleber Oconnor M.D. 03/07/2017 2:09 PM Dictated Date/Time: 03/07/2017 2:07 PM
[2017-03-07] MEDS ORDERED: ACET-1256 PO (14:34)
[2017-03-07 14:54] LABS: URINE APPEARANCE CLOUDY (CLEAR); URINE BILIRUBIN NEG (NEG); URINE COLOR DK YELLOW; URINE EPITHELIAL CELL AUTO 0-5 /lpf (0-5); URINE NITRITE POS (NEG); URINE PH 5.5 (4.5-7.5); URINE SPECIFIC GRAVITY 1.023 (1.000-1.030); UROBILINOGEN NEG (NEG)
[2017-03-07 14:56] LABS: MANUAL MICROSCOPIC REQUIRED? NO; REVIEW REQ? YES; ZZURINE CULT IF INDIC CATH NO
[2017-03-07 14:57] LABS: BASO % 0.7 %; BASO ABS # 0.09 K/uL (0-0.2); COMPLETE YES; EOS % 7.3 %; HEMATOCRIT 42.9 % (42-52); IG% 1.2 %; LYMPH % 10.9 %; LYMPH ABS # 1.33 K/uL (1.2-3.4); MEAN CELL VOLUME 94.1 fL (80-100); MEAN CORPUSCULAR HEMOGLOBIN 30.9 pg (25-34); MEAN CORPUSCULAR HGB CONC 32.9 g/dl (32-36); MEAN PLATELET VOLUME 10.1 fL (7.4-10.4); MONO % 6.6 %; NEUT % 73.3 %; PLATELET COUNT 334 K/uL (130-400); RED BLOOD COUNT 4.56 M/uL (4.7-6.1); WHITE BLOOD COUNT 12.17 K/uL (4.8-10.8)
--- NOTE | 2017-03-07 15:01 | DIAGNOSTIC IMAGING REPORT ---
CT HEAD WITHOUT CONTRAST (CT) CLINICAL HISTORY: confusion WEAKNESS COMPARISON STUDY: 09/13/2016 TECHNIQUE: Axial CT of the brain is performed from the vertex to the skull base. IV contrast was not administered for this examination. A dose lowering technique was utilized adhering to the principles of ALARA. CT DOSE: 614.27 mGy.cm FINDINGS: No intra or extra-axial mass lesions are visualized. There is no CT evidence of acute cortical infarction. There is no evidence of midline shift. There is no acute hemorrhage. No calvarial fractures are visualized. There are patchy white matter hypodensities likely on a small vessel basis. There are old lacunar cerebellar infarcts. There is bilateral thalamic lacunar infarcts. There is an old right parietal lobe cortical infarct. There is no evidence of pathologic ventricular dilatation. There is no evidence of acute sinusitis IMPRESSION: Old post ischemic changes. No acute intracranial findings. Electronically signed by: Lio Fleming M.D. 03/07/2017 3:00 PM Dictated Date/Time: 03/07/2017 2:58 PM
[2017-03-07 15:17] LABS: ALT/SGPT 18 U/L (12-78); BLOOD UREA NITROGEN 24 mg/dl (7-18); CALCIUM 8.7 mg/dl (8.5-10.1); CARBON DIOXIDE 28 mmol/L (21-32); CHLORIDE 109 mmol/L (98-107); GLUCOSE 73 mg/dl (70-99); POTASSIUM 4.2 mmol/L (3.5-5.1); SODIUM 144 mmol/L (136-145)
[2017-03-07 15:21] LABS: ALKALINE PHOSPHATASE 76 U/L (45-117); AST/SGOT 17 U/L (15-37)
[2017-03-07] MEDS ORDERED: CEFTRIAXONE SOD INJ 1 GM ADDVIAL IV STA (15:47)
--- NOTE | 2017-03-07 15:56 | DIAGNOSTIC IMAGING REPORT ---
RIGHT VENOUS DOPP LOWER EXT UNILAT CLINICAL HISTORY: rle pain Right pain. Edema. TECHNIQUE: Ultrasound COMPARISON STUDY: None FINDINGS: Normal study IMPRESSION: Normal study The above report was generated using voice recognition software. It may contain grammatical, syntax or spelling errors. Electronically signed by: Lencho Barrios M.D. 03/07/2017 3:55 PM Dictated Date/Time: 03/07/2017 3:53 PM
[2017-03-07] MEDS ORDERED: FLUCONAZOLE 100 MG TAB PO SCH (16:00)
[2017-03-07] MEDS ORDERED: CEPH500C PO (16:30)
[2017-03-07 16:55] VITALS: BP 151/72; PULSE 85; O2SAT 93
--- NOTE | 2017-03-07 21:37 | EMERGENCY ROOM VISIT NOTE ---
History Report prepared by Ed[place]ira: Yara Borjas Under the Supervision of: Dr. Bethel Brown D.O. First contact with patient: 13:05 Chief Complaint: BILATERAL LEG WEAKNESS Stated Complaint: WEAKNESS History of Present Illness The patient is an 82 year old male who presents to the Emergency Room with complaints of persistent right leg pain starting last night. The patient has not been feeling well and was sent to the ED by his nurse over concerns of stroke. He has had strokes in the past. His friend notes that he was a little confused today. He was asking for old electric bills and phone numbers. He had some shaking in his hands and feet. His right calf pain began last night, but he denies any right leg weakness. He has left leg weakness at baseline from previous stroke. He has some diarrhea which is from his medications. His mouth feels dry. He denies any cough, rhinorrhea, sorethroat, headache, chest pain, SOB, groin numbness, abdominal pain, nausea, arm weakness, or vomiting. He has been incontinent of urine and bowel for several years now. He does not walk and uses a wheelchair. Source of History: patient, friend Onset: last night Position: leg (right) Quality: other (pain) Timing: other (persistent) Associated Symptoms: + diarrhea, No headache, No sorethroat, No cough, No chest pain, No SOB, No nausea, No vomiting, No abdominal pain, No weakness Note: Pt was confused. Review of Systems See HPI for pertinent positives & negatives. A total of 10 systems reviewed and were otherwise negative. Past Medical & Surgical Medical Problems: (1) Asthma (2) Constipation (3) Dizziness (4) Gait abnormality (5) HTN (hypertension) (6) Kidney disease (7) Spinal stenosis (8) Sprain of ankle Family History No pertinent family history Social History Smoking Status: Former Smoker Drug Use: none Marital Status: in relationship Housing Status: lives with friends Occupation Status: retired Current/Historical Medications Scheduled Aspirin (Aspirin EC Low Dose), 81 MG PO QAM Atorvastatin (Atorvastatin Calcium), 20 MG PO QAM Cephalexin Monohydrate (Keflex), 500 MG PO QID Citalopram (Citalopram Hydrobromide), 20 MG PO QAM Docusate Sodium (Docusate Sodium), 1 CAP PO BID Senna/Docusate Sod (Senokot S), 1 TAB PO QD Tamsulosin Hcl (Flomax), 0.4 MG PO DAILY Scheduled PRN Acetaminophen (Tylenol), 500 MG PO Q4H PRN for Pain or Fever Lorazepam (Lorazepam), 0.5 TAB PO Q8 PRN for Anxiety/Agitation Polyethylene (Miralax), 17 GM PO DAILY PRN for Constipation Tramadol HCl (Tramadol HCl), 50 MG PO Q4H PRN for Pain Trazodone Hcl (Trazodone), 50 MG PO Q6 PRN for Pain Allergies Coded Allergies: Tetanus Immune Globulin (Verified Allergy, Mild, 03/07/17) Physical Exam Vital Signs Date Time Temp Pulse Resp B/P (MAP) Pulse Ox O2 Delivery O2 Flow Rate FiO2 03/07/17 16:55 85 20 151/72 93 03/07/17 14:46 75 18 132/65 94 Room Air 03/07/17 14:08 125/61 03/07/17 13:48 75 17 03/07/17 13:18 69 19 03/07/17 12:56 94 Room Air 03/07/17 12:48 72 21 03/07/17 12:46 67 03/07/17 12:41 36.8 78 20 102/47 94 Room Air 03/07/17 12:25 102/47 Physical Exam GENERAL: sitting up in bed, chronically ill appearing, malnourished, cachectic EYE EXAM: normal conjunctiva, PERRL and EOM's intact OROPHARYNX: no exudate, no erythema, lips, buccal mucosa, and tongue normal and mucous membranes are moist NECK: supple, no nuchal rigidity, no adenopathy, non-tender LUNGS: Clear to auscultation. Normal chest wall mechanics HEART: no murmurs, S1 normal and S2 normal ABDOMEN: abdomen soft, non-tender, normo-active bowel sounds, no masses, no rebound or guarding. BACK: Back is symmetrical on inspection and there is no deformity, no midline tenderness, no CVA tenderness. SKIN: no rashes and no bruising UPPER EXTREMITIES: upper extremities are grossly normal. LOWER EXTREMITIES: Right calf larger than left. Minimal flexion to bilateral hips, plantar flexion on right greater than left along with dorsal flexion and EHL. NEURO EXAM: Normal sensorium, cranial nerves II-XII grossly intact, normal speech, no gross weakness of arms. No drift. Finger to nose intact. Gross sensation intact. Medical Decision & Procedures ER Provider Diagnostic Interpretation: Radiology results as stated below per my review and the radiologist's interpretation: CHEST ONE VIEW PORTABLE HISTORY: Weakness. COMPARISON: Chest 09/22/2016. FINDINGS: Cervical spinal fusion hardware. The patient is slightly rotated on this study. The heart is normal in size. Mild interstitial thickening which is likely chronic. This remains unchanged. No new focal lung consolidations to suggest pneumonia. No evidence for pulmonary edema. Stable blunting of the costophrenic sulci suggesting trace pleural effusions. No pneumothorax. IMPRESSION: 1. No change in the trace bilateral pleural effusions. 2. Mild chronic interstitial thickening is also stable. 3. No new focal lung consolidations. No evidence for pulmonary edema. Electronically signed by: Kleber Oconnor M.D. 03/07/2017 2:09 PM Dictated Date/Time: 03/07/2017 2:[address] HEAD WITHOUT CONTRAST (CT) CLINICAL HISTORY: confusion WEAKNESS COMPARISON STUDY: 09/13/2016 TECHNIQUE: Axial CT of the brain is performed from the vertex to the skull base. IV contrast was not administered for this examination. A dose lowering technique was utilized adhering to the principles of ALARA. CT DOSE: 614.27 mGy.cm FINDINGS: No intra or extra-axial mass lesions are visualized. There is no CT evidence of acute cortical infarction. There is no evidence of midline shift. There is no acute hemorrhage. No calvarial fractures are visualized. There are patchy white matter hypodensities likely on a small vessel basis. There are old lacunar cerebellar infarcts. There is bilateral thalamic lacunar infarcts. There is an old right parietal lobe cortical infarct. There is no evidence of pathologic ventricular dilatation. There is no evidence of acute sinusitis IMPRESSION: Old post ischemic changes. No acute intracranial findings. Electronically signed by: Lio Fleming M.D. 03/07/2017 3:00 PM Dictated Date/Time: 03/07/2017 2:58 PM RIGHT VENOUS DOPP LOWER EXT UNILAT CLINICAL HISTORY: rle pain Right pain. Edema. TECHNIQUE: Ultrasound COMPARISON STUDY: None FINDINGS: Normal study IMPRESSION: Normal study The above report was generated using voice recognition software. It may contain grammatical, syntax or spelling errors. Electronically signed by: Lencho Barrios M.D. 03/07/2017 3:55 PM Dictated Date/Time: 03/07/2017 3:53 PM Laboratory Results 03/07/17 14:36 Red Blood Count 4.56, Mean Corpuscular Volume 94.1, Mean Corpuscular Hemoglobin 30.9, Mean Corpuscular Hemoglobin Concent 32.9, Mean Platelet Volume 10.1, Neutrophils (%) (Auto) 73.3, Lymphocytes (%) (Auto) 10.9, Monocytes (%) (Auto) 6.6, Eosinophils (%) (Auto) 7.3, Basophils (%) (Auto) 0.7, Neutrophils # (Auto) 8.91, Lymphocytes # (Auto) 1.33, Monocytes # (Auto) 0.80, Eosinophils # (Auto) 0.89, Basophils # (Auto) 0.09 03/07/17 14:36 Test 03/07/17 12:33 03/07/17 14:10 03/07/17 14:36 Bedside Glucose 89 mg/dl (70-99) Urine Color DK YELLOW Urine Appearance CLOUDY (CLEAR) Urine pH 5.5 (4.5-7.5) Urine Specific [place] 1.023 (1.000-1.030) Urine Protein NEG (NEG) Urine Glucose (UA) NEG (NEG) Urine Ketones NEG (NEG) Urine Occult Blood 2+ (NEG) Urine Nitrite POS (NEG) Urine Bilirubin NEG (NEG) Urine Urobilinogen NEG (NEG) Urine Leukocyte Esterase LARGE (NEG) Urine WBC (Auto) >30 /hpf (0-5) Urine RBC (Auto) 0-4 /hpf (0-4) Urine Hyaline Casts (Auto) 1-5 /lpf (0-5) Urine Epithelial Cells (Auto) 0-5 /lpf (0-5) Urine Bacteria (Auto) NEG (NEG) Urine Yeast (Auto) BUDDING (NONE PRSENT) White Blood Count 12.17 K/uL (4.8-10.8) Red Blood Count 4.56 M/uL (4.7-6.1) Hemoglobin 14.1 g/dL (14.0-18.0) Hematocrit 42.9 % (42-52) Mean Corpuscular Volume 94.1 fL (80-100) Mean Corpuscular Hemoglobin 30.9 pg (25-34) Mean Corpuscular Hemoglobin Concent 32.9 g/dl (32-36) Platelet Count 334 K/uL (130-400) Mean Platelet Volume 10.1 fL (7.4-10.4) Neutrophils (%) (Auto) 73.3 % Lymphocytes (%) (Auto) 10.9 % Monocytes (%) (Auto) 6.6 % Eosinophils (%) (Auto) 7.3 % Basophils (%) (Auto) 0.7 % Neutrophils # (Auto) 8.91 K/uL (1.4-6.5) Lymphocytes # (Auto) 1.33 K/uL (1.2-3.4) Monocytes # (Auto) 0.80 K/uL (0.11-0.59) Eosinophils # (Auto) 0.89 K/uL (0-0.5) Basophils # (Auto) 0.09 K/uL (0-0.2) RDW Standard Deviation 55.3 fL (36.4-46.3) RDW Coefficient of Variation 16.0 % (11.5-14.5) Immature Granulocyte % (Auto) 1.2 % Immature Granulocyte # (Auto) 0.15 K/uL (0.00-0.02) Anion Gap 7.0 mmol/L (3-11) Est Creatinine Clear Calc Drug Dose 53.2 ml/min Estimated GFR () 95.7 Estimated GFR (Non- 82.6 BUN/Creatinine Ratio 30.0 (10-20) Calcium Level 8.7 mg/dl (8.5-10.1) Total Bilirubin 0.5 mg/dl (0.2-1) Direct Bilirubin 0.2 mg/dl (0-0.2) Aspartate Amino Transf (AST/SGOT) 17 U/L (15-37) Alanine Aminotransferase (ALT/SGPT) 18 U/L (12-78) Alkaline Phosphatase 76 U/L (45-117) Troponin I < 0.015 ng/ml (0-0.045) Total Protein 6.3 gm/dl (6.4-8.2) Albumin 2.8 gm/dl (3.4-5.0) Lipase 82 U/L (73-393) Laboratory results per my review. Medications Administered Medications (Trade) Dose Ordered Sig/Roland Route Start Time Stop Time Status Last Admin Dose Admin Sodium Chloride 500 ml @ 999 mls/hr Q31M STAT IV 03/07/17 13:41 03/07/17 14:11 DC 03/07/17 14:11 999 MLS/HR Ceftriaxone Sodium (Rocephin Inj) 1 gm NOW STAT IV 03/07/17 15:47 03/07/17 15:48 DC 03/07/17 15:58 1 GM Fluconazole (Diflucan Tab) 150 mg NOW PO 03/07/17 16:00 03/07/17 17:27 DC 03/07/17 16:28 150 MG ECG Indication: weakness Rate (beats per minute): 71 Rhythm: sinus rhythm Findings: Q waves (Inferior), other (poor baseline inferior) Comparison ECG Date: 13-Sep-2016 Change: no significant change ED Course ED COURSE: Vital signs were reviewed and showed normal vitals. The patients medical record was reviewed The above diagnostic studies were performed and reviewed. ED treatments and interventions as stated above. 1306: The patient was evaluated in room C1B. A complete history and physical examination was performed. 1341: NSS 500 ml @ 999 mls/hr IV. 1351: I reevaluated the patient. He has had no new lower back pain. 1547: Rocephin Inj 1 gm IV. 1600: Fluconazole 150 mg PO. 1605: Upon reevaluation, the patient is back to baseline according to the patient. I discussed my findings with the patient and his and they understand and agree with the treatment plan. I offered admission, but they declined and would prefer to go home. I offered setting up additional services which they do not want to do right now. Based on the patients age, coexisting illnesses, exam and lab findings the decision to treat as an outpatient was made. The patient remained stable while under my care. The patient appeared well at the time of discharge. Medical Decision Differential Diagnosis includes but is not limited to ischemic Stroke, hemorrhagic stroke, bells palsy, mass, neoplasm, migraine headache, seizure, subarachnoid hemorrhage, TIA, and transient global amnesia. I offered admission, but they declined and would prefer to go home. I offered setting up additional services which they do not want to do right now. Patient is an 82-year-old male that presents to ER for stroke workup referred in by PCP and talked with the patient over the phone. Patient was complaining of right leg pain. Pain is in his right calf. He has not been ambulating for quite some time though he does he does use a walker. He has had a progressive decline. He notes he always has weakness in his left lower extremity. This is secondary to old strokes. Right lower extremity has no new weakness. Left lower has no new weakness. He has no new focal deficits. CT head was unremarkable. UA does suggest UTI. He has a mild white count of 12,000. BMP all LFTs, bilirubin and troponin was unremarkable. Lipase was normal. EKG was unchanged. did note that he was talking about and old phone number earlier today which is not typical for him as he does not become confused. Outside that he has been completely back to his baseline currently. Patient was given a dose of IV antibiotics. Offered admission but patient family declined. They prefer to go home. I also offered additional assistance/ Patient talk with care management to get additional help at home as he does require help with them. Both patient and declined as well. Patient does have intermittent incontinence which is normal for him of the past several years as well. He was discharged with oral antibiotics to follow-up with PCP. Discussed with Pt concerning signs and symptoms to watch out for. Pt was instructed to follow up with their PCP and discussed with the patient their option to return to the ED at anytime for persistent or worsening symptoms. The appropriate anticipatory guidance and out-patient management, including indications for return to the emergency department, were explained at length to the patient and understood. Medication Reconcilliation Current Medication List: was personally reviewed by me Blood Pressure Screening Patient's blood pressure: Normal blood pressure Blood pressure disposition: Did not require urgent referral Impression Primary Impression: UTI (urinary tract infection) Scribe Attestation The scribe's documentation has been prepared under my direction and personally reviewed by me in its entirety. I confirm that the note above accurately reflects all work, treatment, procedures, and medical decision making performed by me. Departure Information Dispostion Home / Self-Care Prescriptions Cephalexin Monohydrate (Keflex) 500 Mg Cap 500 MG PO QID, #40 CAP Prov: Bethel Brown, DO 03/07/17 Referrals No Doctor, Assigned (PCP) Forms HOME CARE DOCUMENTATION FORM, IMPORTANT VISIT INFORMATION Patient Instructions ED UTI Cystitis Male, ED Weakness [facility] Additional Instructions Please follow up with your primary care doctor with in the next 24 hours. Any worsening of your symptoms, please return to the ED immediately. This includes any fevers greater than 100.4, worsening pain, confusion, chest pain, shortness breath, persistent nausea, vomiting, unable to eat or drink, or any other concerning signs or symptoms from your standpoint. Please take your antibiotics as prescribed. Problem Qualifiers Primary Impression: UTI (urinary tract infection) Urinary tract infection type: acute cystitis Hematuria presence: with hematuria Qualified Codes: N30.01 - Acute cystitis with hematuria
== END 2017-03-07 16:57 | disposition home or self-care (01) ==
LOC: C.EDC 12:18 → EDBD 12:18 → C.EDC 16:57
DX: N30.01 Acute cystitis with hematuria (principal); M79.604 Pain in right leg; R53.1 Weakness; Z86.73 Personal history of transient ischemic attack (TIA), and cerebral infarction without residual deficits; J45.909 Unspecified asthma, uncomplicated; I10 Essential (primary) hypertension; R26.2 Difficulty in walking, not elsewhere classified; N28.9 Disorder of kidney and ureter, unspecified; M48.00 Spinal stenosis, site unspecified; Z87.891 Personal history of nicotine dependence; Z79.82 Long term (current) use of aspirin; Z79.899 Other long term (current) drug therapy

== ENCOUNTER 2017-07-04 14:07 | Emergency (ER) | payer OTHER, MEDICARE ==
[~2017-07-04] VITALS: Ht 177.8 cm; Wt 53.0 kg
[~2017-07-04 14:07] MED LIST changes: +ACET-1256 PO; -ACET-1311 PO; -BISA-16 PO; -MOML PO; -ONDA4TAB46 PO
[2017-07-04 14:09] VITALS: Ht 177.8 cm; Wt 53.0 kg
[2017-07-04] MEDS ORDERED: SODIUM CHLORIDE 0.9% 1000ML 1,000 ML IV STA (14:27)
--- NOTE | 2017-07-04 14:40 | EMERGENCY ROOM VISIT NOTE ---
History Report prepared by [place]: Dian Carpenter Under the Supervision of: Dr. Mariya De La Paz M.D. First contact with patient: 14:16 Chief Complaint: OTHER COMPLAINT Stated Complaint: STROKE SYMPTOMS History of Present Illness The patient is a 82 year old male who presents to the Emergency Room with complaints of worsening generalized weakness beginning 10 days ago. Family reports the patient has started to become more rigid and difficult to move 10 days ago. The patient's family is concerned the patient is having or had a stroke. The patient has a history of mobile mini stroke. Per family, the [facility] recently put the patient on muscle relaxers. The patient fell a couple days ago because his legs gave out under him. He denies hitting his head from the fall. The patient has been in a wheelchair for about a year and a half. Before his wheelchair, the patient initially started using a walker because he had knee problems. The patient also has titanium betzy in his left leg which is from a work accident in 1991. Family reports the patient has slowly been getting weaker over the past three years. The patient is unable to bear weight on his legs. The patient is incontinent. The patient denies any history of diabetes or Parkinson's disease. Source of History: patient Onset: 10 days ago Position: other (generalized) Quality: other (weakness) Timing: worsening Associated Symptoms: + weakness Review of Systems See HPI for pertinent positives & negatives. A total of 10 systems reviewed and were otherwise negative. Past Medical & Surgical Medical Problems: (1) Asthma (2) Constipation (3) Dizziness (4) Gait abnormality (5) HTN (hypertension) (6) Kidney disease (7) Spinal stenosis (8) Sprain of ankle Family History No pertinent family history Social History Smoking Status: Former Smoker Drug Use: none Marital Status: in relationship Housing Status: lives with friends Occupation Status: retired Current/Historical Medications Scheduled Aspirin (Aspirin EC Low Dose), 81 MG PO QAM Atorvastatin (Atorvastatin Calcium), 20 MG PO QAM Citalopram (Citalopram Hydrobromide), 20 MG PO QAM Docusate Sodium (Docusate Sodium), 1 CAP PO BID Senna/Docusate Sod (Senokot S), 1 TAB PO QD Scheduled PRN Acetaminophen (Tylenol), 500 MG PO Q4H PRN for Pain or Fever Cyclobenzaprine Hcl (Flexeril), 5 MG PO TID PRN for Muscle Spasms Lorazepam (Lorazepam), 0.5 TAB PO Q8 PRN for Anxiety/Agitation Polyethylene (Miralax), 17 GM PO DAILY PRN for Constipation Tramadol HCl (Tramadol HCl), 50 MG PO Q4H PRN for Pain Trazodone Hcl (Trazodone), 50 MG PO Q6 PRN for Pain Allergies Coded Allergies: Tetanus Immune Globulin (Verified Allergy, Mild, 07/04/17) Physical Exam Vital Signs Date Time Temp Pulse Resp B/P (MAP) Pulse Ox O2 Delivery O2 Flow Rate FiO2 07/04/17 20:45 36.3 92 23 144/61 96 07/04/17 20:24 92 23 144/61 96 Room Air 07/04/17 20:05 79 144/61 07/04/17 19:23 87 07/04/17 17:35 88 20 155/68 94 Room Air 07/04/17 15:39 85 18 127/68 95 Room Air 07/04/17 14:41 87 20 117/67 95 Room Air 07/04/17 14:22 91 07/04/17 14:18 117/67 07/04/17 14:09 36.3 93 18 79/50 98 Room Air Physical Exam Vital signs reviewed. General: Chronically ill-appearing male, frail, thin, in no significant distress. HEENT: No scleral icterus, PERRLA, neck supple. Atraumatic. Cardiovascular: Regular rate and rhythm, no extra sounds. Pulmonary: Clear to auscultation bilaterally, normal work of breathing. Abdomen: Soft, nontender, nondistended, positive bowel sounds. Musculoskeletal: Atraumatic, no peripheral edema. Contractures to bilateral lower extremities. Neurologic: Patient awake alert and oriented x 3, answers questions appropriately, relatively immobile. Skin: Warm, dry, no rash Medical Decision & Procedures ER Provider Diagnostic Interpretation: Radiology results as stated below per my review and radiologist interpretation: CHEST ONE VIEW PORTABLE FINDINGS: The bones soft tissues and hemidiaphragms are normal. The cardiomediastinal silhouette is normal. The lungs are clear. The pulmonary vasculature is normal. IMPRESSION: Negative chest. The above report was generated using voice recognition software. It may contain grammatical, syntax or spelling errors. Electronically signed by: Lencho Barrios M.D. HEAD WITHOUT CONTRAST (CT) Comparison: 03/07/2017 Findings: The paranasal sinuses and mastoid air cells are clear. Old left cerebellar infarct. Generalized cerebellar as well as cerebral atrophy. Old small basal ganglia infarcts. Mild compensatory prominence of the ventricular system. Old posterior right parietal infarct. No acute or interval finding. No acute intracranial hemorrhage. Impression: Chronic change as described. Several old infarcts. No acute intracranial abnormality. Laboratory Results 07/04/17 14:44 Red Blood Count 4.15, Mean Corpuscular Volume 98.6, Mean Corpuscular Hemoglobin 32.3, Mean Corpuscular Hemoglobin Concent 32.8, Mean Platelet Volume 10.9, Neutrophils (%) (Auto) 73.3, Lymphocytes (%) (Auto) 11.2, Monocytes (%) (Auto) 7.7, Eosinophils (%) (Auto) 6.3, Basophils (%) (Auto) 0.6, Neutrophils # (Auto) 7.56, Lymphocytes # (Auto) 1.15, Monocytes # (Auto) 0.79, Eosinophils # (Auto) 0.65, Basophils # (Auto) 0.06 07/04/17 14:44 Test 07/04/17 14:44 07/04/17 14:45 07/04/17 16:40 White Blood Count 10.30 K/uL (4.8-10.8) Red Blood Count 4.15 M/uL (4.7-6.1) Hemoglobin 13.4 g/dL (14.0-18.0) Hematocrit 40.9 % (42-52) Mean Corpuscular Volume 98.6 fL (80-100) Mean Corpuscular Hemoglobin 32.3 pg (25-34) Mean Corpuscular Hemoglobin Concent 32.8 g/dl (32-36) Platelet Count 250 K/uL (130-400) Mean Platelet Volume 10.9 fL (7.4-10.4) Neutrophils (%) (Auto) 73.3 % Lymphocytes (%) (Auto) 11.2 % Monocytes (%) (Auto) 7.7 % Eosinophils (%) (Auto) 6.3 % Basophils (%) (Auto) 0.6 % Neutrophils # (Auto) 7.56 K/uL (1.4-6.5) Lymphocytes # (Auto) 1.15 K/uL (1.2-3.4) Monocytes # (Auto) 0.79 K/uL (0.11-0.59) Eosinophils # (Auto) 0.65 K/uL (0-0.5) Basophils # (Auto) 0.06 K/uL (0-0.2) RDW Standard Deviation 55.2 fL (36.4-46.3) RDW Coefficient of Variation 15.3 % (11.5-14.5) Immature Granulocyte % (Auto) 0.9 % Immature Granulocyte # (Auto) 0.09 K/uL (0.00-0.02) Anion Gap 4.0 mmol/L (3-11) Est Creatinine Clear Calc Drug Dose 71.1 ml/min Estimated GFR () 108.5 Estimated GFR (Non- 93.6 BUN/Creatinine Ratio 31.6 (10-20) Calcium Level 8.5 mg/dl (8.5-10.1) Magnesium Level 2.2 mg/dl (1.8-2.4) Total Bilirubin 0.5 mg/dl (0.2-1) Direct Bilirubin 0.2 mg/dl (0-0.2) Aspartate Amino Transf (AST/SGOT) 35 U/L (15-37) Alanine Aminotransferase (ALT/SGPT) 31 U/L (12-78) Alkaline Phosphatase 202 U/L (45-117) Total Creatine Kinase 266 U/L (39-308) Creatine Kinase MB 5.9 ng/ml (0.5-3.6) Creatine Kinase MB Ratio 2.2 (0-3.0) Total Protein 6.2 gm/dl (6.4-8.2) Albumin 2.7 gm/dl (3.4-5.0) Thyroid Stimulating Hormone (TSH) 0.989 uIu/ml (0.300-4.500) Bedside Troponin I < 0.030 ng/ml (0-0.045) Urine Color DK YELLOW Urine Appearance CLEAR (CLEAR) Urine pH 5.0 (4.5-7.5) Urine Specific [place] 1.027 (1.000-1.030) Urine Protein NEG (NEG) Urine Glucose (UA) NEG (NEG) Urine Ketones NEG (NEG) Urine Occult Blood NEG (NEG) Urine Nitrite NEG (NEG) Urine Bilirubin 1+ (NEG) Urine Urobilinogen NEG (NEG) Urine Leukocyte Esterase TRACE (NEG) Urine WBC (Auto) 1-5 /hpf (0-5) Urine RBC (Auto) >30 /hpf (0-4) Urine Hyaline Casts (Auto) 1-5 /lpf (0-5) Urine Epithelial Cells (Auto) 0-5 /lpf (0-5) Urine Bacteria (Auto) NEG (NEG) Urine Crystals CALCIUM OXALATE (NONE Urine Mucus PRESENT (NONE PRSENT) Urine Yeast (Auto) (NONE PRSENT) Laboratory results per my review. Medications Administered Medications (Trade) Dose Ordered Sig/Roland Route Start Time Stop Time Status Last Admin Dose Admin Sodium Chloride 1,000 ml @ 125 mls/hr Q8H STAT IV 07/04/17 14:27 07/04/17 21:15 DC 07/04/17 15:39 125 MLS/HR ECG Indication: weakness Rate (beats per minute): 88 Rhythm: sinus rhythm Findings: no acute ischemic change, other (poor quality baseline, non specific ST change ) ED Course 1422: Past medical records reviewed. The patient was evaluated in room A10. A complete history and physical examination was performed. 1427: Ordered Sodium Chloride 1000 ml @ 125 mls/hr IV. 193: The patient has been accepted at [facility]. Awaiting transfer. Medical Decision Differential diagnosis: Etiologies such as metabolic, infection, hypo/hyperglycemia, electrolyte abnormalities, cardiac sources, intracerebral event, toxicologic, neurologic, as well as others were entertained. This patient was evaluated and appeared to be in no significant distress. The patient is alert and cooperative however is relatively immobile. Patient's medical evaluation today is fairly unrevealing. He was hydrated with IV normal saline solution. The patient is unable to ambulate or bear weight. He has had a significant decline over the last few weeks. He was referred to [facility] for inpatient rehabilitation and has been accepted. Secure transportation arrangements have been made. Family and patient are aware of this plan and agree. Medication Reconcilliation Current Medication List: was personally reviewed by me Blood Pressure Screening Patient's blood pressure: Elevated blood pressure Blood pressure disposition: Elevated BP felt to be situational Impression Primary Impression: Generalized weakness Scribe Attestation The scribe's documentation has been prepared under my direction and personally reviewed by me in its entirety. I confirm that the note above accurately reflects all work, treatment, procedures, and medical decision making performed by me. Departure Information Dispostion Transfer Acute Care Facility Referrals No Doctor, Assigned (PCP) Patient Instructions [facility]
--- NOTE | 2017-07-04 15:02 | DIAGNOSTIC IMAGING REPORT ---
CHEST ONE VIEW PORTABLE CLINICAL HISTORY: AMS dyspnea COMPARISON STUDY: 03/07/2017 FINDINGS: The bones soft tissues and hemidiaphragms are normal. The cardiomediastinal silhouette is normal. The lungs are clear. The pulmonary vasculature is normal. IMPRESSION: Negative chest. The above report was generated using voice recognition software. It may contain grammatical, syntax or spelling errors. Electronically signed by: Lencho Barrios M.D. 07/04/2017 3:00 PM Dictated Date/Time: 07/04/2017 3:00 PM
[2017-07-04 15:04] LABS: BASO % 0.6 %; BASO ABS # 0.06 K/uL (0-0.2); EOS % 6.3 %; EOS ABS # 0.65 K/uL (0-0.5); HEMATOCRIT 40.9 % (42-52); HEMOGLOBIN 13.4 g/dL (14.0-18.0); IG# 0.09 K/uL (0.00-0.02); LYMPH % 11.2 %; LYMPH ABS # 1.15 K/uL (1.2-3.4); MEAN CELL VOLUME 98.6 fL (80-100); MEAN CORPUSCULAR HEMOGLOBIN 32.3 pg (25-34); MEAN CORPUSCULAR HGB CONC 32.8 g/dl (32-36); MEAN PLATELET VOLUME 10.9 fL (7.4-10.4); MONO % 7.7 %; MONO ABS # 0.79 K/uL (0.11-0.59); NEUT % 73.3 %; NEUT ABS # 7.56 K/uL (1.4-6.5); PLATELET COUNT 250 K/uL (130-400); RED CELL DISTRIBUTION WIDTH CV 15.3 % (11.5-14.5); RED CELL DISTRIBUTION WIDTH SD 55.2 fL (36.4-46.3)
[2017-07-04] MEDS ORDERED: CYCL5TAB PO (15:06)
--- NOTE | 2017-07-04 15:10 | DIAGNOSTIC IMAGING REPORT ---
HEAD WITHOUT CONTRAST (CT) CT DOSE: 614.27 mGy.cm HISTORY: Mental status change AMS TECHNIQUE: Multiaxial CT images of the head were performed without the use of intravenous contrast. A dose lowering technique was utilized adhering to the principles of ALARA. Comparison: 03/07/2017 Findings: The paranasal sinuses and mastoid air cells are clear. Old left cerebellar infarct. Generalized cerebellar as well as cerebral atrophy. Old small basal ganglia infarcts. Mild compensatory prominence of the ventricular system. Old posterior right parietal infarct. No acute or interval finding. No acute intracranial hemorrhage. Impression: Chronic change as described. Several old infarcts. No acute intracranial abnormality. The above report was generated using voice recognition software. It may contain grammatical, syntax or spelling errors. Electronically signed by: Lencho Barrios M.D. 07/04/2017 3:09 PM Dictated Date/Time: 07/04/2017 3:07 PM
[2017-07-04 15:15] LABS: ALBUMIN 2.7 gm/dl (3.4-5.0); CALCIUM 8.5 mg/dl (8.5-10.1); CREATININE 0.59 mg/dl (0.60-1.40); POTASSIUM 4.1 mmol/L (3.5-5.1)
[2017-07-04 15:26] LABS: CKMB 5.9 ng/ml (0.5-3.6); TOTAL PROTEIN 6.2 gm/dl (6.4-8.2)
[2017-07-04 20:45] VITALS: BP 144/61; PULSE 92; TEMP 36.3; O2SAT 96
[2017-07-17] MEDS ORDERED: SODI1ENE (08:01)
[2017-07-17] MEDS ORDERED: [UNRECOGNIZED DRUG - CODE] (08:01)
[2017-07-17] MEDS ORDERED: MOML PO (08:01)
[2017-07-17] MEDS ORDERED: GABA-112 PO (08:01)
[2017-07-17] MEDS ORDERED: BISA10SU5 (08:01)
[2017-07-28] MEDS ORDERED: AMOX500C3 PO (08:27)
== END 2017-07-04 20:47 ==
LOC: C.EDB 14:09 → C.EDA 20:47
DX: R53.1 Weakness (principal); W19.XXXA Unspecified fall, initial encounter; J45.909 Unspecified asthma, uncomplicated; I10 Essential (primary) hypertension; N28.9 Disorder of kidney and ureter, unspecified; R26.9 Unspecified abnormalities of gait and mobility; Z86.73 Personal history of transient ischemic attack (TIA), and cerebral infarction without residual deficits; Z96.7 Presence of other bone and tendon implants; Z87.891 Personal history of nicotine dependence; Z79.82 Long term (current) use of aspirin; Z88.7 Allergy status to serum and vaccine

== ENCOUNTER → 2017-07-25 | Outpatient (CLI) | payer OTHER, MEDICARE ==
[~2017-07-25] MED LIST changes: +AMOX500C3 PO; +BISA10SU5; +GABA-112 PO; +MOML PO; -MRLP17X PO; -SENN-65 PO; +SODI1ENE; -TAMS0.4C38 PO; -TRAZ50TA35 PO; +[UNRECOGNIZED DRUG - CODE]
--- NOTE | 2017-07-25 16:13 | DIAGNOSTIC IMAGING REPORT ---
CT LEFT HIP NO CONTRAST CT DOSE: 211.47 mGycm CLINICAL HISTORY: LT HIP NON HEALING WOUND,R/O OSTEOMYELITIS TECHNIQUE: Helical images were acquired in transverse plane. No intravenous contrast was administered. A dose lowering technique was utilized adhering to the principles of ALARA. COMPARISON STUDY: CT scan of the abdomen and pelvis performed in August 2016 FINDINGS: There is indwelling Beasley catheter. There is a large amount of stool present within the rectal vault. There is heterotopic ossification located between the inferior pubic ramus and lesser trochanter of the left hip. No acute fractures are visualized. There are no destructive lesions to indicate osteomyelitis. It should be noted that MRI is more sensitive for this diagnosis. There is apparent induration of the soft tissues adjacent to the greater trochanter. No discrete abscess is visualized on this noncontrast study. IMPRESSION: 1. No acute fractures 2. Induration of the soft tissues adjacent the greater trochanter. No CT evidence of an abscess given the limitations of a noncontrast study 3. No CT evidence of osteomyelitis. It should be noted that MRI is more sensitive for this diagnosis 4. 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 07/25/2017 4:12 PM Dictated Date/Time: 07/25/2017 4:04 PM
== END | disposition home or self-care (01) ==
LOC: C.CTS 15:20
PROVIDERS: ATTEND Internal Medicine Critical Care Medicine
DX: L97.929 Non-pressure chronic ulcer of unspecified part of left lower leg with unspecified severity (principal); M61.58 Other ossification of muscle, other site

== ENCOUNTER → 2017-07-30 | Outpatient (CLI) | payer OTHER, MEDICARE ==
[2017-07-30 01:15] LABS: INFLUENZA B ANTIGEN Neg for Influ B (NEG)
[2017-07-30 02:37] LABS: HEMATOCRIT 36.9 % (42-52); HEMOGLOBIN 12.1 g/dL (14.0-18.0); MEAN CELL VOLUME 97.6 fL (80-100); MEAN CORPUSCULAR HGB CONC 32.8 g/dl (32-36); RED CELL DISTRIBUTION WIDTH CV 14.5 % (11.5-14.5); RED CELL DISTRIBUTION WIDTH SD 51.9 fL (36.4-46.3); WHITE BLOOD COUNT 13.36 K/uL (4.8-10.8)
[2017-07-30 10:25] LABS: ALBUMIN 2.1 gm/dl (3.4-5.0); ALT/SGPT 16 U/L (12-78); BLOOD UREA NITROGEN 16 mg/dl (7-18); CALCIUM 8.1 mg/dl (8.5-10.1); CARBON DIOXIDE 28 mmol/L (21-32); CREATININE 0.57 mg/dl (0.60-1.40); GLUCOSE 109 mg/dl (70-99); POTASSIUM 4.8 mmol/L (3.5-5.1); SODIUM 138 mmol/L (136-145)
[2017-07-30 10:28] LABS: ALKALINE PHOSPHATASE 72 U/L (45-117); AST/SGOT 12 U/L (15-37); TOTAL PROTEIN 5.6 gm/dl (6.4-8.2)
== END ==
LOC: C.LABCC 11:55
PROVIDERS: ATTEND Internal Medicine
DX: R50.9 Fever, unspecified (principal); R41.82 Altered mental status, unspecified

== ENCOUNTER → 2017-08-03 | Outpatient (CLI) | payer OTHER, MEDICARE ==
[2017-08-03 08:19] LABS: BASO % 0.6 %; BASO ABS # 0.06 K/uL (0-0.2); EOS % 7.9 %; EOS ABS # 0.85 K/uL (0-0.5); HEMATOCRIT 38.8 % (42-52); HEMOGLOBIN 12.5 g/dL (14.0-18.0); IG# 0.16 K/uL (0.00-0.02); LYMPH % 13.7 %; LYMPH ABS # 1.47 K/uL (1.2-3.4); MEAN CORPUSCULAR HEMOGLOBIN 31.6 pg (25-34); MEAN CORPUSCULAR HGB CONC 32.2 g/dl (32-36); MEAN PLATELET VOLUME 10.1 fL (7.4-10.4); MONO % 9.5 %; MONO ABS # 1.02 K/uL (0.11-0.59); NEUT % 66.8 %; NEUT ABS # 7.16 K/uL (1.4-6.5); PLATELET COUNT 287 K/uL (130-400); RED CELL DISTRIBUTION WIDTH CV 14.4 % (11.5-14.5); RED CELL DISTRIBUTION WIDTH SD 51.6 fL (36.4-46.3); WHITE BLOOD COUNT 10.72 K/uL (4.8-10.8)
[2017-08-03 08:27] LABS: BLOOD UREA NITROGEN 14 mg/dl (7-18); CALCIUM 8.4 mg/dl (8.5-10.1); CARBON DIOXIDE 26 mmol/L (21-32); CREATININE 0.53 mg/dl (0.60-1.40); GLUCOSE 92 mg/dl (70-99); GLUCOSE,FASTING 92 mg/dl (70-99); POTASSIUM 4.2 mmol/L (3.5-5.1); SODIUM 137 mmol/L (136-145)
[2017-08-03 10:05] LABS: HEMOGLOBIN A1C 5.6 % (4.5-5.6)
== END ==
LOC: C.LABCC 07:56
PROVIDERS: ATTEND Internal Medicine
DX: N18.3 Chronic kidney disease, stage 3 (moderate) (principal); D72.829 Elevated white blood cell count, unspecified; R73.9 Hyperglycemia, unspecified

== ENCOUNTER → 2017-08-30 | Outpatient (CLI) | payer OTHER, MEDICARE ==
[~2017-08-30] MED LIST changes: -AMOX500C3 PO; +SULF800T23 PO
[2017-08-30 10:52] LABS: ALBUMIN 2.1 gm/dl (3.4-5.0); TOTAL PROTEIN 5.9 gm/dl (6.4-8.2)
== END | disposition home or self-care (01) ==
LOC: C.LAB 08:49
PROVIDERS: ATTEND Internal Medicine
DX: F22 Delusional disorders (principal); R45.1 Restlessness and agitation

== ENCOUNTER → 2017-09-13 | Outpatient (CLI) | payer OTHER, MEDICARE ==
[~2017-09-13] MED LIST changes: +ACET650T49 PO; +ASCO500T3 PO; +ASPI81TA28 PO; +CIPR1TAB11 PO; +IPRASOL4 NEB; +MULT-506 PO; +OXYC-292 PO; +PANC1CAP16 PO; +RXC/5 PO; +RXC5 PO
== END ==
LOC: C.LABCC 12:49
PROVIDERS: ATTEND Internal Medicine
DX: R50.9 Fever, unspecified (principal); R82.90 Unspecified abnormal findings in urine

== ENCOUNTER 2017-09-20 08:59 | Inpatient (IN) | payer OTHER, MEDICARE ==
[~2017-09-20] VITALS: Ht 177.8 cm; Wt 49.0 kg
[~2017-09-20 08:59] MED LIST changes: -ACET650T49 PO; -AMOX875T PO; -ASCO500T3 PO; -ASPI81TA28 PO; -CIPR1TAB11 PO; -IPRASOL4 NEB; -MULT-506 PO; -OXYC-292 PO; -PANC1CAP16 PO; -RXC/5 PO; -RXC5 PO; -RXNS10 PO
--- NOTE | 2017-09-20 09:25 | DIAGNOSTIC IMAGING REPORT ---
CHEST ONE VIEW PORTABLE CLINICAL HISTORY: 82 years-old Male presenting with EVALUATE RESPIRATORY DISTRESS.DYSPNEA. TECHNIQUE: Portable upright AP view of the chest was obtained. COMPARISON: 07/04/2017. FINDINGS: Atherosclerosis of the aortic arch. Cardiac silhouette normal in size. Apparent opacity in the periphery of the right upper lung is likely due to overlapping soft tissue as a skin fold is suggested in this region. No other potential opacity. No large effusion or pneumothorax. Degenerative changes of the thoracic spine. Upper abdomen normal. IMPRESSION: 1. Apparent opacity in the periphery of the right upper lung is felt to most likely be artifactual from overlapping soft tissue given the presence of an associated skin fold in this region. If there is clinical concern, dedicated PA and lateral views could be obtained. Electronically signed by: Trev Araya M.D. 09/20/2017 9:23 AM Dictated Date/Time: 09/20/2017 9:22 AM
[2017-09-20 09:35] LABS: BASO % 0.4 %; BASO ABS # 0.06 K/uL (0-0.2); EOS % 1.8 %; EOS ABS # 0.29 K/uL (0-0.5); HEMATOCRIT 38.9 % (42-52); HEMOGLOBIN 12.9 g/dL (14.0-18.0); IG# 0.19 K/uL (0.00-0.02); LYMPH % 10.2 %; LYMPH ABS # 1.66 K/uL (1.2-3.4); MEAN CELL VOLUME 89.8 fL (80-100); MEAN CORPUSCULAR HEMOGLOBIN 29.8 pg (25-34); MEAN CORPUSCULAR HGB CONC 33.2 g/dl (32-36); MEAN PLATELET VOLUME 9.5 fL (7.4-10.4); MONO % 6.7 %; MONO ABS # 1.08 K/uL (0.11-0.59); NEUT % 79.7 %; NEUT ABS # 12.93 K/uL (1.4-6.5); PLATELET COUNT 387 K/uL (130-400); RED CELL DISTRIBUTION WIDTH CV 15.8 % (11.5-14.5); RED CELL DISTRIBUTION WIDTH SD 51.8 fL (36.4-46.3); WHITE BLOOD COUNT 16.21 K/uL (4.8-10.8)
[2017-09-20 09:45] LABS: PTT PATIENT 29.3 SECONDS (21.0-31.0)
[2017-09-20 09:50] LABS: ALBUMIN 2.2 gm/dl (3.4-5.0); ALT/SGPT 21 U/L (12-78); BLOOD UREA NITROGEN 34 mg/dl (7-18); CALCIUM 8.6 mg/dl (8.5-10.1); CARBON DIOXIDE 25 mmol/L (21-32); GLUCOSE 149 mg/dl (70-99); POTASSIUM 4.6 mmol/L (3.5-5.1); SODIUM 139 mmol/L (136-145)
[2017-09-20 09:54] LABS: ALKALINE PHOSPHATASE 72 U/L (45-117); AST/SGOT 17 U/L (15-37); TOTAL PROTEIN 6.8 gm/dl (6.4-8.2)
[2017-09-20] MEDS ORDERED: PIPERACILLIN/TAZOBACTAM 3.375 GM/100ML D5W IV STA (09:55)
[2017-09-20] MEDS ORDERED: LEVAQUIN 750MG / 150ML D5W IV STA (09:55)
[2017-09-20] MEDS ORDERED: ASPI81TA28 PO (09:58)
[2017-09-20] MEDS ORDERED: ACET650T49 PO (09:58)
[2017-09-20] MEDS ORDERED: CIPR1TAB11 PO (09:58)
[2017-09-20] MEDS ORDERED: RXC/5 PO (09:58)
[2017-09-20] MEDS ORDERED: IPRASOL4 NEB (09:58)
[2017-09-20] MEDS ORDERED: RXC5 PO (09:58)
[2017-09-20] MEDS ORDERED: MULT-506 PO (09:58)
[2017-09-20] MEDS ORDERED: PANC1CAP16 PO (09:58)
[2017-09-20] MEDS ORDERED: ASCO500T3 PO (09:58)
[2017-09-20] MEDS ORDERED: OXYC-292 PO (09:58)
[2017-09-20] MEDS ORDERED: PIPERACILL/TAZOBAC IV 3.375 GM in DEXTROSE 5% 100ML IV ONE (10:00)
[2017-09-20] MEDS ORDERED: ONDANSETRON INJ 2 MG/ML 2 ML VIAL IV PRN (11:15)
[2017-09-20] MEDS ORDERED: PIPERACILL/TAZOBAC CONSULT ACTIVE PRN (11:15)
--- NOTE | 2017-09-20 11:25 | History and Physical ---
History & Physical Date & Time of Service: Sep 20, 2017 at 11:16 Chief Complaint: Cough/Congestion Primary Care Physician: Jose Savage Past Medical/Surgical History Medical Problems: (1) Ambulatory dysfunction (2) Asthma (3) Constipation (4) CVA (cerebral vascular accident) (5) Dizziness (6) Fracture of distal fibula (7) Fracture of distal fibula (8) Gait abnormality (9) Generalized weakness (10) HTN (hypertension) (11) Kidney disease (12) Multiple rib fractures (13) Pneumonia (14) Spinal stenosis (15) Sprain of ankle (16) UTI (urinary tract infection) (17) UTI (urinary tract infection) Family History No pertinent family history Social History Smoking Status: Former Smoker Drug Use: none Marital Status: in relationship Housing status: lives with family Occupational Status: retired Immunizations History of Influenza Vaccine: No History of Tetanus Vaccine?: Unknown History of Pneumococcal: No History of Hepatitis B Vaccine: No Allergies Coded Allergies: Tetanus Immune Globulin (Verified Allergy, Mild, 07/04/17) Home Medications Scheduled Ascorbic Acid (Vitamin C), 500 MG PO BID Aspirin (Aspirin Ec), 81 MG PO DAILY Ciprofloxacin Tab (Cipro), 250 MG PO BID Docusate Sodium (Docusate Sodium), 100 MG PO BID Gabapentin (Neurontin), 200 MG PO BID Multivitamin (Multivitamin), 1 TAB PO DAILY Oxycodone Hcl (Oxycodone Hcl Er), 10 MG PO BID Pancrelipase (Lipase-Protease- (Zenpep), 1 CAP PO WM Sulfa/Trimethoprim (Bactrim Ds 800MG/160MG), 1 TAB PO BID Scheduled PRN Acetaminophen (Arthritis Pain Relief), 650 MG PO Q4H PRN for Fever Oxycodone HCl (Oxycodone HCl), 5 MG PO Q6H PRN for Moderate Pain Oxycodone HCl (Oxycodone HCl), 10 MG PO Q6H PRN for Severe Pain Physical Exam Vital Signs Date Time Temp Pulse Resp B/P (MAP) Pulse Ox O2 Delivery O2 Flow Rate FiO2 09/20/17 10:29 87 24 96/62 92 Nasal Cannula 4.0 09/20/17 09:11 95 09/20/17 09:07 93 Nasal Cannula 2.0 09/20/17 09:03 36.4 97 24 127/56 88 Room Air Diagnostics Laboratory Results Results Past 24 Hours Test 09/20/17 09:19 09/20/17 10:06 Range/Units White Blood Count 16.21 4.8-10.8 K/uL Red Blood Count 4.33 4.7-6.1 M/uL Hemoglobin 12.9 14.0-18.0 g/dL Hematocrit 38.9 42-52 % Mean Corpuscular Volume 89.8 80-100 fL Mean Corpuscular Hemoglobin 29.8 25-34 pg Mean Corpuscular Hemoglobin Concent 33.2 32-36 g/dl Platelet Count 387 130-400 K/uL Mean Platelet Volume 9.5 7.4-10.4 fL Neutrophils (%) (Auto) 79.7 % Lymphocytes (%) (Auto) 10.2 % Monocytes (%) (Auto) 6.7 % Eosinophils (%) (Auto) 1.8 % Basophils (%) (Auto) 0.4 % Neutrophils # (Auto) 12.93 1.4-6.5 K/uL Lymphocytes # (Auto) 1.66 1.2-3.4 K/uL Monocytes # (Auto) 1.08 0.11-0.59 K/uL Eosinophils # (Auto) 0.29 0-0.5 K/uL Basophils # (Auto) 0.06 0-0.2 K/uL RDW Standard Deviation 51.8 36.4-46.3 fL RDW Coefficient of Variation 15.8 11.5-14.5 % Immature Granulocyte % (Auto) 1.2 % Immature Granulocyte # (Auto) 0.19 0.00-0.02 K/uL Prothrombin Time 10.7 9.0-12.0 SECONDS Prothromb Time International Ratio 1.0 0.9-1.1 Activated Partial Thromboplast Time 29.3 21.0-31.0 SECONDS Partial Thromboplastin Ratio 1.1 Sodium Level 139 136-145 mmol/L Potassium Level 4.6 3.5-5.1 mmol/L Chloride Level 108 98-107 mmol/L Carbon Dioxide Level 25 21-32 mmol/L Anion Gap 6.0 3-11 mmol/L Blood Urea Nitrogen 34 7-18 mg/dl Creatinine 0.90 0.60-1.40 mg/dl Estimated GFR () 91.2 Estimated GFR (Non- 78.7 BUN/Creatinine Ratio 37.3 10-20 Random Glucose 149 70-99 mg/dl Calcium Level 8.6 8.5-10.1 mg/dl Total Bilirubin 0.4 0.2-1 mg/dl Aspartate Amino Transf (AST/SGOT) 17 15-37 U/L Alanine Aminotransferase (ALT/SGPT) 21 12-78 U/L Alkaline Phosphatase 72 45-117 U/L Troponin I < 0.015 0-0.045 ng/ml Total Protein 6.8 6.4-8.2 gm/dl Albumin 2.2 3.4-5.0 gm/dl Globulin 4.6 2.5-4.0 gm/dl Albumin/Globulin Ratio 0.5 0.9-2 Urine Color RED Urine Appearance SL CLOUDY CLEAR Urine pH >= 9.0 4.5-7.5 Urine Specific [place] 1.010 1.000-1.030 Urine Protein 3+ NEG Urine Glucose (UA) NEG NEG Urine Ketones NEG NEG Urine Occult Blood 2+ NEG Urine Nitrite NEG NEG Urine Bilirubin NEG NEG Urine Urobilinogen NEG NEG Urine Leukocyte Esterase LARGE NEG Urine RBC >30 0-4 /hpf Urine WBC >30 0-5 /hpf Urine Epithelial Cells 0-5 0-5 /lpf Urine Bacteria NEG NEG Microbiology Results 09/20/17 Blood Culture, Ordered Pending 09/20/17 Blood Culture, Ordered Pending 09/20/17 Urine Culture, Received Pending Impression Assessment and Plan admit #[id number] Resuscitation Status VTE Prophylaxis Will order VTE Prophylaxis: Yes
--- NOTE | 2017-09-20 12:08 | HISTORY & PHYSICAL EXAMINATION ---
DATE OF ADMISSION: 09/20/2017 CHIEF COMPLAINT: Hypoxia. HISTORY OF PRESENT ILLNESS: The patient is a very pleasant, somewhat confused 82-year-old male accompanied by his . The notes that he has been at [facility] for a couple of months working on a number of ulcers. She notes mostly about a hip ulcer which apparently is stage III pressure ulcer, and in that respect, he has had ongoing wound care and ongoing antibiotics and had up and down fevers and they believe the wound was infected but most of that is really chronic history. His acute history is that about 3 or 4 days ago, she believes he had an aspiration event at meal. Immediately [facility] modified his diet and has been watching him closely. He has had a cough that she notes sounds croupy and some productive sputum. He denies shortness of breath, chest pain, etc.; however, he is also right now somewhat delirious and his history appears to be fairly unreliable. As best I can tell, it sounds like there is no other acute HPI or review of systems. He was seen at the wound clinic this morning and his pulse ox was 87% and they heard coarse rhonchi and felt it best to bump him over to the ER for further evaluation and treatment. Here, he was found to have a right middle lobe or the lower part of the right upper lobe pneumonia, and we were asked to admit for further treatment. REVIEW OF SYSTEMS: Negative except for as above as best can be ascertained. 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 MEDICATIONS: His medications are listed as Tylenol Arthritis 650 q. 4 p.r.n. pain, vitamin C 500 mg p.o. b.i.d., aspirin 81 mg daily, Cipro 250 b.i.d., Colace 100 mg p.o. b.i.d., Neurontin 200 mg p.o. b.i.d., multivitamin daily, oxycodone 5-10 mg q. 6 p.r.n. pain and OxyContin 10 mg p.o. b.i.d., pancrelipase 1 cap with meals and Bactrim-DS 1 p.o. b.i.d. SURGICAL HISTORY: Includes spinal procedures, ankle repair and wound care obviously of his current ulcers. FAMILY HISTORY: Really not significant, although of note, his daughter did of asthma at the age of 16. SOCIAL HISTORY: He is a former smoker, unclear how many pack years. He is currently a resident at [facility], although according to the , it sounds like this is with a goal of recovery of strength and wounds and potentially an eventual discharge, although I cannot confirm this completely. ALLERGIES: LISTED TETANUS, IMMUNE GLOBULIN. Please note, because of the patient's confusion and the not necessarily knowing much as far as medical details, the past medical, social, surgical, medications, etc., are really more based on chart review than information I can glean from the patient. PHYSICAL EXAMINATION: VITAL SIGNS: Temperature 36.4, pulse 97, respiratory rate 24, blood pressure 127/56, pulse ox 88% on room air. GENERAL: He is awake, alert, fairly disoriented. He is pleasant but does not seem to be completely coherent with what is going on. He appears very frail and weak but is in no physical or respiratory distress. HEENT: Normocephalic, atraumatic. Mucous membranes are dry. CARDIOVASCULAR: Regular without rubs, murmurs or gallops. LUNGS: Show right, particularly in the middle lung field coarse rhonchi, maybe some scattered rales on inspiration. No wheezes. Good effort. No accessory muscle use. ABDOMEN: Soft, somewhat scaphoid. No guarding, rebound, rigidity. No tenderness. No masses or organomegaly. EXTREMITIES: Show muscle wasting. No cyanosis, clubbing or edema. SKIN: Shows no rashes. No pallor or icterus. He does have his chronic wounds that are outlined in the wound clinic note from earlier this morning. MUSCULOSKELETAL: Shows no significant deformities; however, he does have significant muscle wasting. NEUROLOGIC: Shows cranial nerves II-XII to be grossly intact. Gross motor and sensory intact. MENTAL STATE: Shows him to be fairly easily confused, easily distractable. He picks at things some. He will sometimes answer questions fairly directly, although it is questionable how reliable, and other times will really not directly answer the question but has a reasonable [id number] conversation only if it is not even necessarily on the same topic. LABORATORIES AND DIAGNOSTICS: CBC shows a white count of 16.21 with almost 80% neutrophils, hemoglobin 12.9, platelets 387. His MCV is 89.8. Complete metabolic panel with sodium 139, potassium 4.6, chloride 108, CO2 of 25, BUN 34, creatinine 0.9, calcium 8.6, glucose 149, total protein 0.4, AST 17, ALT 21, alkaline phosphatase 72. Troponin was less than 0.015. Total protein of 6.8, albumin 2.2. PT of 10.7, PTT 29.3. Urinalysis is red, slightly cloudy, specific gravity of 1.010, pH of greater than 9, 3+ protein, 2+ blood, large leukocyte esterase, greater than 30 red and white, 0-5 epithelial cells, negative bacteria. His chest x-ray reviewed by the ER doc, radiology and myself; to the ER doc and myself, it appears that he has got an infiltrate in either the lower part of the right upper lung or the upper part of the right lower lung. Radiology sees the same thing but wonders if it is artifactual with overlapping soft tissue densities. His EKG is sinus at 92 with some nonspecific flipped Ts in V1 and V2 as well as aVL. ASSESSMENT AND PLAN: 1. Pneumonia with sepsis present on admission as well as early hypoxic respiratory failure. The septic criteria based on SIRS include his heart rate, respiratory rate and white count. qSOFA certainly could also include his altered mental status. At any rate, he certainly appears sick enough from multiple reasons to warrant admission, although fortunately not in an unstable way. It is a little bit difficult to tell if this is an aspiration pneumonia. Certainly, his choking event and his overall frail state corroborate this, but at the same time the fact that it is more in the upper part of the right lung, there is also the question if is it a healthcare-associated pneumonia. Either way, we will continue the Zosyn started in the ER. Check MRSA nares. If it is positive, we will continue with MRSA coverage, although we may require MRSA coverage for his hip anyway, see below. We will also provide supplemental oxygen and supportive care, and in regard to the possible aspiration, we will be having speech therapy eval and treat, keeping him n.p.o. until otherwise. 2. Hip wound. We will continue with wound care for this. His hip cultures from 08/23/2017 did show MRSA, although he has been on Bactrim for a while for this. Hopefully, will be able to just simply continue Bactrim as has been done by the wound clinic but will obviously need to wait for speech therapy to make sure that it is safe for him to swallow. In the meantime, for today, we will continue the Zosyn only, and if it appears that he is going to be n.p.o. into tomorrow, then will either need to use IV Bactrim, vancomycin, etc., although obviously if his MRSA nares is positive, will need to treat in regard to the pneumonia with vancomycin anyway. 3. Hematuria. He apparently has recently been treated for urinary tract infection. His most recent urine culture about a week ago showed corynebacterium. Prior to that, there was no growth on multiple urines. He did just have his Beasley changed earlier today and I suspect that is the main reason for the hematuria. We will follow this closely and he does have a urine culture pending. 4. Moderate to possibly severe protein calorie malnutrition. He does have muscle wasting. His albumin is low. Certainly, this is not helping with his wound healing and in fact he had labs ordered for today from [facility] with tag diagnosis of anorexia, so obviously this has been an ongoing thing. Once speech has worked with him, we will need to try to optimize his intake and ask nutrition to see him as well. 5. Mild anemia, follow. 6. Prerenal azotemia and dehydration. We will give him gentle IV fluids. He does not carry a cardiac or renal diagnosis that puts him at a significant risk for volume overload and he does appear dry, but given his extremely frail state, we will start low and then escalate fluids as he tolerates. 7. Deep venous thrombosis prophylaxis, heparin subcu. 8. Chronic arthritis. Will use morphine p.r.n. pain for now, and then as soon as it is safe to take p.o., we will want to at least resume his regular gabapentin and OxyContin to prevent any kind of withdrawal. 9. Delirium/metabolic encephalopathy. It is not clear exactly what his baseline mental status is, although he has plenty of reasons to be delirious. Right now, unfortunately it is likely to worsen before improving given that he will be hospitalized and that alone can be enough to provoke. We will try frequent reorientation supportive care and treating the underlying causes that we can as well as trying to avoid new deliriogenic meds. 10. Disposition: He will be admitted to Med Surg under the [facility] and I confirmed with his that he is a level 5 DNR.
--- NOTE | 2017-09-20 14:37 | EMERGENCY ROOM VISIT NOTE ---
History Report prepared by [place]: Cliff Dominguez Under the Supervision of: Dr. Bethel Brown D.O. First contact with patient: 08:56 Chief Complaint: RESPIRATORY PROBLEMS Stated Complaint: COUGH/CONGESTION History of Present Illness The patient is a 82 year old male who presents to the Emergency Room with complaints of constant hypoxia. The patient is a resident at [facility]. He was being seen by at the Wound Care Clinic for an ulcer of his left hip today and was referred to the ED when he was found to be hypoxic with an oxygen saturation of 87%. EMS reports that the patients is concerned that the patient may have aspirated last week. She told them that the patient has had a cough for the past week. EMS states that the patient's oxygen saturation increased to 94% on supplemental oxygen. The patient denies chest pain, SOB, or abdominal pain. Source of History: patient, EMS Onset: A week ago Symptom Intensity: oxygen saturation of 87% Quality: other (hypoxia) Timing: constant Modifying Factors (Relieving): other (Supplemental oxygen) Associated Symptoms: + cough, No chest pain, No SOB, No abdominal pain Review of Systems See HPI for pertinent positives & negatives. A total of 10 systems reviewed and were otherwise negative. Past Medical & Surgical Medical Problems: (1) Asthma (2) Constipation (3) Dizziness (4) Gait abnormality (5) HTN (hypertension) (6) Kidney disease (7) Pneumonia (8) Spinal stenosis (9) Sprain of ankle Family History No pertinent family history Social History Smoking Status: Former Smoker Drug Use: none Marital Status: in relationship Housing Status: lives with friends Occupation Status: retired Current/Historical Medications Scheduled Ascorbic Acid (Vitamin C), 500 MG PO BID Aspirin (Aspirin Ec), 81 MG PO DAILY Ciprofloxacin Tab (Cipro), 250 MG PO BID Docusate Sodium (Docusate Sodium), 100 MG PO BID Gabapentin (Neurontin), 200 MG PO BID Multivitamin (Multivitamin), 1 TAB PO DAILY Oxycodone Hcl (Oxycodone Hcl Er), 10 MG PO BID Pancrelipase (Lipase-Protease- (Zenpep), 1 CAP PO WM Sulfa/Trimethoprim (Bactrim Ds 800MG/160MG), 1 TAB PO BID Scheduled PRN Acetaminophen (Arthritis Pain Relief), 650 MG PO Q4H PRN for Fever Oxycodone HCl (Oxycodone HCl), 5 MG PO Q6H PRN for Moderate Pain Oxycodone HCl (Oxycodone HCl), 10 MG PO Q6H PRN for Severe Pain Allergies Coded Allergies: Tetanus Immune Globulin (Verified Allergy, Mild, 07/04/17) Physical Exam Vital Signs Date Time Temp Pulse Resp B/P (MAP) Pulse Ox O2 Delivery O2 Flow Rate FiO2 09/20/17 14:10 84 20 105/68 93 Nasal Cannula 2.0 09/20/17 12:37 90 24 103/65 93 Nasal Cannula 2.0 09/20/17 11:53 92 128/69 94 Nasal Cannula 4.0 09/20/17 10:29 87 24 96/62 92 Nasal Cannula 4.0 09/20/17 09:11 95 09/20/17 09:07 93 Nasal Cannula 2.0 09/20/17 09:03 36.4 97 24 127/56 88 Room Air Physical Exam GENERAL: Lying on right side in bed. Nasal canula in place. Malnourished, chronically ill appearing, cachectic. EYE EXAM: normal conjunctiva. OROPHARYNX: no exudate, no erythema, lips, buccal mucosa, and tongue normal and mucous membranes are moist NECK: supple, no nuchal rigidity, no adenopathy, non-tender LUNGS: Rhonchi bilaterally. Normal chest wall mechanics HEART: no murmurs, S1 normal and S2 normal ABDOMEN: abdomen soft, non-tender, normo-active bowel sounds, no masses, no rebound or guarding. BACK: Back is symmetrical on inspection and there is no deformity, no midline tenderness, no CVA tenderness. : Beasley catheter in place draining dark brown urine. SKIN: no rashes and no bruising UPPER EXTREMITIES: upper extremities are grossly normal. LOWER EXTREMITIES: No pitting edema. 6 cm ulcer to the left hip tracking 2 cm towards the leg. Exposed muscle and bone. NEURO EXAM: Awake and alert. Following commands. Medical Decision & Procedures ER Provider Diagnostic Interpretation: Radiology results as stated below per my review and the radiologist's interpretation: CHEST ONE VIEW PORTABLE FINDINGS: Atherosclerosis of the aortic arch. Cardiac silhouette normal in size. Apparent opacity in the periphery of the right upper lung is likely due to overlapping soft tissue as a skin fold is suggested in this region. No other potential opacity. No large effusion or pneumothorax. Degenerative changes of the thoracic spine. Upper abdomen normal. IMPRESSION: 1. Apparent opacity in the periphery of the right upper lung is felt to most likely be artifactual from overlapping soft tissue given the presence of an associated skin fold in this region. If there is clinical concern, dedicated PA and lateral views could be obtained. Electronically signed by: Trev Araya M.D. 09/20/2017 9:23 AM Laboratory Results 09/20/17 09:19 Red Blood Count 4.33, Mean Corpuscular Volume 89.8, Mean Corpuscular Hemoglobin 29.8, Mean Corpuscular Hemoglobin Concent 33.2, Mean Platelet Volume 9.5, Neutrophils (%) (Auto) 79.7, Lymphocytes (%) (Auto) 10.2, Monocytes (%) (Auto) 6.7, Eosinophils (%) (Auto) 1.8, Basophils (%) (Auto) 0.4, Neutrophils # (Auto) 12.93, Lymphocytes # (Auto) 1.66, Monocytes # (Auto) 1.08, Eosinophils # (Auto) 0.29, Basophils # (Auto) 0.06 09/20/17 09:19 Test 09/20/17 09:19 09/20/17 10:06 White Blood Count 16.21 K/uL (4.8-10.8) Red Blood Count 4.33 M/uL (4.7-6.1) Hemoglobin 12.9 g/dL (14.0-18.0) Hematocrit 38.9 % (42-52) Mean Corpuscular Volume 89.8 fL (80-100) Mean Corpuscular Hemoglobin 29.8 pg (25-34) Mean Corpuscular Hemoglobin Concent 33.2 g/dl (32-36) Platelet Count 387 K/uL (130-400) Mean Platelet Volume 9.5 fL (7.4-10.4) Neutrophils (%) (Auto) 79.7 % Lymphocytes (%) (Auto) 10.2 % Monocytes (%) (Auto) 6.7 % Eosinophils (%) (Auto) 1.8 % Basophils (%) (Auto) 0.4 % Neutrophils # (Auto) 12.93 K/uL (1.4-6.5) Lymphocytes # (Auto) 1.66 K/uL (1.2-3.4) Monocytes # (Auto) 1.08 K/uL (0.11-0.59) Eosinophils # (Auto) 0.29 K/uL (0-0.5) Basophils # (Auto) 0.06 K/uL (0-0.2) RDW Standard Deviation 51.8 fL (36.4-46.3) RDW Coefficient of Variation 15.8 % (11.5-14.5) Immature Granulocyte % (Auto) 1.2 % Immature Granulocyte # (Auto) 0.19 K/uL (0.00-0.02) Prothrombin Time 10.7 SECONDS (9.0-12.0) Prothromb Time International Ratio 1.0 (0.9-1.1) Activated Partial Thromboplast Time 29.3 SECONDS (21.0-31.0) Partial Thromboplastin Ratio 1.1 Anion Gap 6.0 mmol/L (3-11) Estimated GFR () 91.2 Estimated GFR (Non- 78.7 BUN/Creatinine Ratio 37.3 (10-20) Calcium Level 8.6 mg/dl (8.5-10.1) Total Bilirubin 0.4 mg/dl (0.2-1) Aspartate Amino Transf (AST/SGOT) 17 U/L (15-37) Alanine Aminotransferase (ALT/SGPT) 21 U/L (12-78) Alkaline Phosphatase 72 U/L (45-117) Troponin I < 0.015 ng/ml (0-0.045) Total Protein 6.8 gm/dl (6.4-8.2) Albumin 2.2 gm/dl (3.4-5.0) Globulin 4.6 gm/dl (2.5-4.0) Albumin/Globulin Ratio 0.5 (0.9-2) Urine Color RED Urine Appearance SL CLOUDY (CLEAR) Urine pH >= 9.0 (4.5-7.5) Urine Specific [place] 1.010 (1.000-1.030) Urine Protein 3+ (NEG) Urine Glucose (UA) NEG (NEG) Urine Ketones NEG (NEG) Urine Occult Blood 2+ (NEG) Urine Nitrite NEG (NEG) Urine Bilirubin NEG (NEG) Urine Urobilinogen NEG (NEG) Urine Leukocyte Esterase LARGE (NEG) Urine RBC >30 /hpf (0-4) Urine WBC >30 /hpf (0-5) Urine Epithelial Cells 0-5 /lpf (0-5) Urine Bacteria NEG (NEG) Laboratory results per my review. Medications Administered Medications (Trade) Dose Ordered Sig/Roland Route Start Time Stop Time Status Last Admin Dose Admin Levofloxacin (Levaquin / D5W) 750 mg NOW STAT IV 09/20/17 09:55 09/20/17 09:56 DC 09/20/17 10:09 750 MG Piperacillin Sod/ Tazobactam Sod 3.375 gm/Dextrose 115 ml @ 230 mls/hr NOW ONCE IV 09/20/17 10:00 09/20/17 10:29 DC 09/20/17 11:50 230 MLS/HR ECG Per My Interpretation Indication: other (hypoxia) Rate (beats per minute): 92 Rhythm: sinus rhythm Findings: no ectopy, other (Normal axis. ) ED Course ED COURSE: Vital signs were reviewed and showed hypoxia The patients medical record was reviewed The above diagnostic studies were performed and reviewed. ED treatments and interventions as stated above. 0857: The patient was evaluated in room B9. A complete history and physical examination was performed. 0955: Ordered Levaquin / D5W 750 mg IV. 1000: Ordered Piperacillin Sod/Tazobactam 3.375 gm/Dextrose 115 mL @ 230 mL/hr IV. 1020: Upon reevaluation, the patient is resting. I discussed my findings with the patient and he understands and agrees with the treatment plan. Based on the patients age, coexisting illnesses, exam and lab findings the decision to treat as an inpatient was made. The patient remained stable while under my care. The patient will be evaluated for further management. Medical Decision Differential diagnoses includes but is not limited to pneumonia, bronchitis, COPD/Asthma exacerbation, pneumothorax, pulmonary embolism, congestive heart failure, acute coronary syndrome. Patient is an 82-year-old female who presents the ER from wound care clinic for hypoxia. He has no other complaints. Cough has been present over the past 3 days which is productive. Leukocytosis of 16,000. BMP, LFTs, bilirubin and troponin was negative. Patient a Beasley in place which did appear to be 30. This was replaced. Patient was given broad-spectrum antibiotics. Chest x-ray showed a questionable infiltrate. Discussed with internal medicine to the hypoxia patient was admitted for further workup. I do not believe this to be consistent with PE especially with a productive cough. Medication Reconcilliation Current Medication List: was personally reviewed by me Blood Pressure Screening Patient's blood pressure: Normal blood pressure Blood pressure disposition: Did not require urgent referral Consults Time Called: 1017 Consulting Physician: Dr. Morgan [facility] Hospitalist Returned Call: [phone] I reviewed the patient's case with Dr. Mora. LIS will evaluate the patient for further management. Impression Primary Impression: Pneumonia Additional Impression: Hypoxia Scribe Attestation The scribe's documentation has been prepared under my direction and personally reviewed by me in its entirety. I confirm that the note above accurately reflects all work, treatment, procedures, and medical decision making performed by me. Departure Information Dispostion Being Evaluated By Hospitalist Referrals Jose Savage (PCP) Patient Instructions My [facility] Problem Qualifiers Primary Impression: Pneumonia Pneumonia type: due to unspecified organism Laterality: unspecified laterality Lung location: unspecified part of lung Qualified Codes: J18.9 - Pneumonia, unspecified organism
[2017-09-20 14:45] VITALS: BP 103/61; PULSE 94; TEMP 36.6; O2SAT 93; BMI 15.5
[2017-09-20 16:18] VITALS: BP 104/65; PULSE 91; TEMP 36.1; O2SAT 93
[2017-09-20 22:23] VITALS: BP 99/63; PULSE 89; TEMP 36.3; O2SAT 93
[2017-09-20] MEDS: HEPARIN SOD 5000 UNIT/0.5 ML CARP SQ SCH (22:23)
[2017-09-20] MEDS: MoRPHine SULFATE 2 MG/ML CARP IV PRN (22:24)
[2017-09-21] MEDS: PIPERACILL/TAZOBAC IV 3.375 GM in DEXTROSE 5% 100ML 100 ML IV SCH ×3 (02:00→17:33)
[2017-09-21 07:16] VITALS: BP 111/64; PULSE 76; TEMP 36.4; O2SAT 96
[2017-09-21 08:44] LABS: BASO % 0.3 %; BASO ABS # 0.06 K/uL (0-0.2); EOS % 1.1 %; EOS ABS # 0.21 K/uL (0-0.5); HEMATOCRIT 36.2 % (42-52); HEMOGLOBIN 11.6 g/dL (14.0-18.0); LYMPH % 6.2 %; LYMPH ABS # 1.14 K/uL (1.2-3.4); MEAN CELL VOLUME 89.2 fL (80-100); MEAN CORPUSCULAR HEMOGLOBIN 28.6 pg (25-34); MEAN PLATELET VOLUME 10.3 fL (7.4-10.4); MONO % 5.1 %; MONO ABS # 0.93 K/uL (0.11-0.59); NEUT % 86.2 %; NEUT ABS # 15.81 K/uL (1.4-6.5); PLATELET COUNT 347 K/uL (130-400); RED CELL DISTRIBUTION WIDTH CV 15.6 % (11.5-14.5); RED CELL DISTRIBUTION WIDTH SD 50.7 fL (36.4-46.3); WHITE BLOOD COUNT 18.35 K/uL (4.8-10.8)
[2017-09-21] MEDS: HEPARIN SOD 5000 UNIT/0.5 ML CARP SQ SCH ×2 (09:00→20:24)
[2017-09-21 09:03] LABS: CALCIUM 8.4 mg/dl (8.5-10.1); CREATININE 0.83 mg/dl (0.60-1.40); POTASSIUM 4.5 mmol/L (3.5-5.1)
--- NOTE | 2017-09-21 09:11 | Clinical Documentation Query ---
CLINICAL DOCUMENTATION QUERY Dr. FUNK, In your clinical opinion is this patient being managed for: ( x) likely aspiration pneumonia ( ) Not Agree ( ) Other explanation of clinical findings (Please Explain) ( ) Unable to determine (Please Define) ( ) Need to Discuss The medical record reflects the following clinical findings, treatment, and risk factors. Clinical Indicators: 82 yo male presenting with sepsis and pneumonia. Per EMS report, pt's expressed concern that pt may have aspirated last week. ST eval completed. Overt signs of aspiration noted with all attempts. Treatment: IV zosyn, IV fluids, ST eval, pureed diet with nectar to honey thick liquids, aspiration precautions, [employer] followup Risk Factors: age, ill-fitting dentures d/t wt loss, general frail condition Please clarify and document your clinical opinion in the progress notes and discharge summary. Terms such as "probable", "suspected", "likely", "questionable", "possible", or "still to be ruled out" are acceptable. IF IN AGREEMENT, YOU MUST DOCUMENT ABOVE DIAGNOSTIC STATEMENT IN DAILY PROGRESS NOTES AND DISCHARGE SUMMARY. This document is not part of the patient's record. Thank You, Caroline Garcia, RN [phone]
[2017-09-21 10:23] VITALS: Ht 177.8 cm; Wt 49.0 kg
[2017-09-21] MEDS: SODIUM CHLOR 0.45% + 20MEQ KCL 1,000 ML IV SCH ×3 (12:18→17:28)
[2017-09-21] MEDS: BOOST VANILLA PUDDING CUP PO SCH ×3 (12:19→20:20)
--- NOTE | 2017-09-21 14:51 | PULMONARY CONSULTATION ---
DATE OF CONSULTATION: 09/21/2017 TIME: 2:15 p.m. HISTORY OF PRESENT ILLNESS: The patient was seen in room #257 bed #1. His significant other and power of commercial attorney, Adriana, was present. The patient is a poor historian. He is an 82-year-old male who has been residing at [facility] for a couple of months. On July 04, the patient came to the Emergency Room with severe generalized weakness. He was not felt to be needed for admission, but they did transition him over to [facility]. He was there for a few weeks and then was transferred to [facility]. According to his significant other, he has just had a generalized decline over the past several months. The patient was brought to the Emergency Room yesterday after having been evaluated at wound clinic. They have found that he was hypoxic at that time. There was a history that the patient had vomited some food 3-4 days earlier. He had been attending wound clinic because of an ulceration in the area of the left hip. The patient had had some increasing cough. He tells me he is bringing up white mucus, but I do not have any reason to believe that he is reliable. When I asked the patient how he feels, he said "couldn't be better." He basically denied any cough or shortness of breath. His significant other states that he has lost about 70 pounds in the past 1 year. No one seems to know why that was. He has become quite emaciated and weak. In terms of past pulmonary problems, he was diagnosed with asthma when he was young, but he seemed to outgrow the asthma. He has not been bothered by it in recent times, according to his significant other. PAST MEDICAL HISTORY: 1. Hip ulcer as noted. 2. Hypertension. 3. 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 4. Urinary tract infections. 5. Recurring falls. 6. Multiple rib fractures. 7. Chronic kidney disease. 8. BPH with an indwelling catheter. 9. Multiple mini strokes. PAST SURGICAL HISTORY: Reportedly, ankle and spine surgeries. SOCIAL HISTORY: The patient quit smoking about 18 years ago. His significant other was not sure how much he smoked prior to that but she believes it was significant. Alcohol use is none, in recent times. FAMILY HISTORY: His daughter of an asthma attack at age 16. Otherwise, the family history is unknown. ALLERGIES: TETANUS. REVIEW OF SYSTEMS: Unobtainable. PHYSICAL EXAMINATION: GENERAL: The patient is an 82-year-old male who initially was sleeping when I came in. He did awaken. He was able to verbalize. He was not, however, oriented. For instance, he thought the year was 2008. He has no idea what building we were in. He thought we were in the month of October. VITAL SIGNS: Temperature is 36.4. He has not had any fevers since admission. HEENT: Pupils were reactive to light. Nasal cannula was in place. The patient has dentures. They are loose, probably from his weight loss. NECK: Palpation of the neck reveals no lymph nodes. HEART: Heart rate was 76 per minute. The rhythm was regular. Blood pressure 111/64. LUNGS: Lung bailey revealed scattered rhonchi bilaterally. Oxygen saturation was 96% on 2 liters. Respiratory rate was 16 breaths per minute and not labored. The ribs were very prominent because of the weight loss. ABDOMEN: Soft. It reflects weight loss. I did not hear a bruit. The aortic pulsation was noted. No masses were palpable. EXTREMITIES: His legs are somewhat contracted. This has been getting worse according to his significant other. His hands show significant muscle atrophy. No edema was noted. GENITOURINARY: Beasley catheter is noted to be in place. IMAGING DATA: The patient had a chest x-ray done yesterday. There is an increased opacity in the right upper lung field that is felt to be artifactual. The radiologist felt this was a skin fold. LABORATORY DATA: White count is 18.35. Hemoglobin is 11.6. Platelets are 347,000. Coags are normal. Urinalysis shows 3+ protein, 2+ blood with a large amount of leukocyte esterase, greater than 30 rbc's and greater than 30 wbc's. Urine bacteria; however, was negative. Electrolytes show sodium 138, potassium 4.5, chloride 108, and bicarbonate 25. BUN was 32 with a creatinine of 0.83. The patient's total protein is 6.8, which would be low. Albumin was 2.2 with globulin 4.6. Liver functions are normal. Troponin was negative. IMPRESSION: 1. Aspiration of gastrointestinal contents. 2. A 70-pound weight loss. 3. Leukocytosis. COMMENTS AND RECOMMENDATIONS: There must be some underlying reason why the patient has lost 70 pounds. I do not know if this has been worked up otherwise. Perhaps it is even related to dementia. He is on Zosyn which I would agree with as an antibiotic of choice for what appears to be aspiration. We will need to repeat a chest x-ray in a day or 2 to try and better determine if the infiltrate is artifactual or not. The patient sounds congested. I believe ordering some neb treatments may benefit him. The patient might be appropriate for a swallow evaluation if it could be done. Thank you for asking me to assist in his care.
[2017-09-21 16:00] VITALS: O2SAT 92
[2017-09-21 16:06] VITALS: BP 131/74; PULSE 86; TEMP 36.3; O2SAT 92
[2017-09-21] MEDS: MoRPHine SULFATE 2 MG/ML CARP IV PRN (17:30)
[2017-09-21] MEDS: LEVALBUTEROL 0.63MG/3 ML NEB INH SCH (17:39)
[2017-09-21] MEDS: IPRATROPIUM BROMIDE NEB SOLN 0.02% 2.5 ML VIAL INH SCH (17:39)
[2017-09-21] MEDS ORDERED: LEVALBUTEROL/IPRATROPIUM NEB INH SCH (22:00)
--- NOTE | 2017-09-21 22:50 | Progress Note ---
Subjective Date of Service: Sep 21, 2017. Subjective Pt evaluation today including: conversation w/ patient, conversation w/ family Patient continues to be delirious, is a poor historian. Patient reports having cough. Discussed with his partner. It appears patient quality of life has deteriorated over past year. He has supposedly lost about 100 pounds. Problem List Medical Problems: (1) Ambulatory dysfunction Status: Acute (2) CVA (cerebral vascular accident) Status: Acute (3) Generalized weakness Status: Acute (4) Hypoxia Status: Acute (5) Multiple rib fractures Status: Acute (6) UTI (urinary tract infection) Status: Acute Review of Systems Respiratory: + cough negative except for what was described above, All Other Systems: Reviewed and Negative Objective Vital Signs Date Time Temp Pulse Resp B/P (MAP) Pulse Ox O2 Delivery O2 Flow Rate FiO2 09/21/17 16:06 36.3 86 16 131/74 (93) 92 Nasal Cannula 3.0 09/21/17 16:00 92 Nasal Cannula 2.0 09/21/17 08:00 Nasal Cannula 2.0 09/21/17 07:16 36.4 76 16 111/64 (80) 96 Room Air 09/21/17 00:00 Nasal Cannula 2.0 Physical Exam Comments: General appearance: cachetic male who appears older than stated age. HEENT: Pupils were reactive to light. Nasal cannula was in place. NECK: no adenopathy noted HEART: RRR LUNGS: rhonchi bilaterally, ABDOMEN: Soft. NT ND EXTREMITIES: NO edema, contracted lower extremities GENITOURINARY: Beasley catheter is noted to be in place. SKIN: Shows no rashes. No pallor or icterus. He does have his chronic wounds that are outlined in the wound clinic note from earlier this morning. MUSCULOSKELETAL: Shows no significant deformities; however, he does have significant muscle wasting. NEUROLOGIC: Shows cranial nerves II-XII to be grossly intact. Gross motor and sensory intact. Laboratory Results Last 24 Hours Test 09/21/17 08:25 White Blood Count 18.35 K/uL Red Blood Count 4.06 M/uL Hemoglobin 11.6 g/dL Hematocrit 36.2 % Mean Corpuscular Volume 89.2 fL Mean Corpuscular Hemoglobin 28.6 pg Mean Corpuscular Hemoglobin Concent 32.0 g/dl Platelet Count 347 K/uL Mean Platelet Volume 10.3 fL Neutrophils (%) (Auto) 86.2 % Lymphocytes (%) (Auto) 6.2 % Monocytes (%) (Auto) 5.1 % Eosinophils (%) (Auto) 1.1 % Basophils (%) (Auto) 0.3 % Neutrophils # (Auto) 15.81 K/uL Lymphocytes # (Auto) 1.14 K/uL Monocytes # (Auto) 0.93 K/uL Eosinophils # (Auto) 0.21 K/uL Basophils # (Auto) 0.06 K/uL RDW Standard Deviation 50.7 fL RDW Coefficient of Variation 15.6 % Immature Granulocyte % (Auto) 1.1 % Immature Granulocyte # (Auto) 0.20 K/uL Sodium Level 138 mmol/L Potassium Level 4.5 mmol/L Chloride Level 108 mmol/L Carbon Dioxide Level 25 mmol/L Anion Gap 5.0 mmol/L Blood Urea Nitrogen 32 mg/dl Creatinine 0.83 mg/dl Est Creatinine Clear Calc Drug Dose 46.7 ml/min Estimated GFR () 94.3 Estimated GFR (Non- 81.4 BUN/Creatinine Ratio 38.3 Random Glucose 102 mg/dl Calcium Level 8.4 mg/dl Assessment and Plan ASSESSMENT AND PLAN: 1. Aspiration Pneumonia with sepsis present on admission as well as early hypoxic respiratory failure. Patient had elevated HR WBC AND RR. He also has altered mental status It is likely that patient has aspiration pneumonia However given his other problems, calorie malnutrition, low BMI, decreased quality of life. Patient may be a palliative care candidate. Will consult pulmonary and continue ZOSYN WILL CONSULT PULMONARY. . 2. Hip wound. We will continue with wound care for this. H/O MRSA Will continue bactrim. 3. Hematuria. He apparently has recently been treated for urinary tract infection. His most recent urine culture about a week ago showed corynebacterium. We will follow this closely and he does have a urine culture pending. Unsure if patient would like invasive testing. will discuss with partner. 4. Moderate to possibly severe protein calorie malnutrition. He does have muscle wasting. His albumin is low. Patient has lost about 100 pounds in past year. 5. Mild anemia, follow. 6. Prerenal azotemia and dehydration. will continue gentle fluids 7. Deep venous thrombosis prophylaxis, heparin subcu. 8. Chronic arthritis. Will use morphine p.r.n. pain for now, and then as soon as it is safe to take p.o., we will want to at least resume his regular gabapentin and OxyContin to prevent any kind of withdrawal. 9. Delirium/metabolic encephalopathy. It is not clear exactly what his baseline mental status is, will avid meds that can worsen his delirium. will continue to monitor 10. Disposition: He will be admitted to [facility] under [facility] and I confirmed with his that he is a level 5 DNR. Continued [facility] stay due to: other Discharge planning: uncertain
[2017-09-21 23:30] VITALS: BP 114/61; PULSE 100; TEMP 36.6; O2SAT 93
[2017-09-22] MEDS: PIPERACILL/TAZOBAC IV 3.375 GM in DEXTROSE 5% 100ML 100 ML IV SCH ×3 (01:08→18:09)
[2017-09-22] MEDS: SODIUM CHLOR 0.45% + 20MEQ KCL 1,000 ML IV SCH ×2 (01:08→13:26)
[2017-09-22] MEDS ORDERED: NURSING VERBAL MED ORDER ONE (01:30)
[2017-09-22 08:02] VITALS: BP 113/51; PULSE 90; TEMP 36.5; O2SAT 93
[2017-09-22] MEDS: HEPARIN SOD 5000 UNIT/0.5 ML CARP SQ SCH ×2 (09:37→20:49)
[2017-09-22] MEDS: MoRPHine SULFATE 2 MG/ML CARP IV PRN ×2 (09:40→15:53)
[2017-09-22] MEDS: BOOST VANILLA PUDDING CUP PO SCH ×3 (09:42→20:43)
--- NOTE | 2017-09-22 12:16 | DIAGNOSTIC IMAGING REPORT ---
VIDEO SWALLOW CLINICAL HISTORY: Pneumonia. Assess for aspiration. COMPARISON STUDY: No previous studies for comparison. Fluoroscopy time: 2.2 minutes. FINDINGS: A small amount of tracheal aspiration was noted with swallows of thin liquids. There was penetration with nectar thick liquids without aspiration. There is no aspiration with pudding or crackers with paste. Premature spillage was noted with moderate residuals. Anterior cervical spine fusion and discectomy with incidentally noted. IMPRESSION: 1. Small amount of tracheal aspiration with swallows of thin liquids. No aspiration with the remainder of the consistencies. 2. Premature spillage with moderate residuals within the vallecula and piriform sinuses. 3. Full recommendations by speech pathology to follow. Electronically signed by: Jose Martin Bowie M.D. 09/22/2017 12:15 PM Dictated Date/Time: 09/22/2017 12:13 PM
[2017-09-22 15:26] VITALS: PULSE 84; O2SAT 95
[2017-09-22] MEDS: IPRATROPIUM BROMIDE NEB SOLN 0.02% 2.5 ML VIAL INH SCH ×3 (15:26→23:12)
[2017-09-22] MEDS: LEVALBUTEROL 0.63MG/3 ML NEB INH SCH ×3 (15:26→23:12)
[2017-09-22 15:34] VITALS: BP 130/66; PULSE 84; TEMP 36.3; O2SAT 95
--- NOTE | 2017-09-22 16:58 | PULMONARY PROGRESS NOTE ---
DATE: 09/22/2017 PROBLEM LIST: Includes: 1. Aspiration. 2. Leukocytosis. 3. Possible sepsis with aspiration pneumonia. 4. Weight loss. SUBJECTIVE: The patient gives brief history, seems to be very frustrated and depressed, states that his breathing seems to be okay but he is having a lot of pain, feels that as he put it, he should have last night, in talking with the nursing staff. Apparently, patient asked them several times to help him and that he is ready to . Palliative consult was placed today and apparently saw him today. I was not able to review her note at the time of this dictation. In speaking with the patient's significant other, she reports he has been about the same. He continues to use oxygen. There is some occasional cough though not much. No significant mucous production. OBJECTIVE: GENERAL: The patient is a thin, almost cachectic 82-year-old male who was sleeping when I went in but did awaken easily. He is interactive and cooperative, did not appear in any respiratory distress, appeared uncomfortable and was moving around in the bed a little bit. VITAL SIGNS: Temp 36.3, pulse 84, respirations 20, blood pressure 130/66, pulse ox 95% on 2 liters. NECK: Thin, no mass, no adenopathy, no bruit. CHEST: The patient has diminished breath sounds bilaterally. Per Dr. Lopez's note yesterday, the patient does have some scattered rhonchi bilaterally. I did not really appreciate any today, although it was difficult to ascertain. CARDIOVASCULAR: Regular rate and rhythm. No murmurs, gallops or rubs. ABDOMEN: Soft, flat, no masses palpable. EXTREMITIES: No erythema or edema. LABORATORY DATA: No new lab data. IMAGING DATA: Did have a video swallow which did show aspiration with swallow of thin liquids. IMPRESSION: 1. Aspiration pneumonia with possible sepsis. He is on antibiotic and from what I can tell appears, at least stable. The patient apparently did have a questionable artifact on chest x-ray. We will repeat chest x-ray for tomorrow. 2. Leukocytosis. 3. Weight loss of 70 pounds. PLAN: At this point, continue antibiotic and steroid as they are, not much else to offer. The patient from a pulmonary standpoint at least seems relatively stable to improving. Would recommend to continue Zosyn and continue nebulizer. The patient appears in poor condition otherwise. Apparently, there was a palliative consult placed. At this point, will continue his current pulmonary treatment.
--- NOTE | 2017-09-22 17:26 | Palliative Care Consultation ---
Consultation Date of Consultation: Sep 22, 2017. Requesting Physician: Dr Gonzales Attending Physician: Dr Gonzales Reason for Consultation: Determine goals of care History of Present Illness Met with patient and his significant other at bedside. Patient is an 82-year-old male who was admitted from [facility] for possible aspiration. Chest x-ray showed a right middle lobe infiltrate. Patient significant other reports that he seems to be improving since admission. Patient is at [facility] for IV antibiotics for a stage III hip ulcer and a stage II ulcer to his buttocks and back. Significant other reports that patient has not been ambulatory since June and even in June he was only pivot and transfer. Patient's past medical history is for hypertension he has got arthritis in the spine, myelopathy, radiculopathy and a history of asthma. Patient is a former smoker. Discussion with the significant other and patient entailed CODE STATUS and possibility of feeding tube. Patient stated he did not want a feeding tube. Further discussion regarding treatment options with patient and significant other they are both hopeful that he can return to [facility] and continue his last 4 weeks of IV antibiotics and continue wound care for his ulcers that they report is are improving. Significant other is hopeful that he will regain some strength and be able to return home. Discussed p.o. intake, patient takes high-protein supplement at the facility. Discussed poor wound healing if there is poor nutrition, again patient stated he did not want a feeding tube. Discussed coming up with another plan if patient does not improve at the facility including returning home with hospice. Past Medical/Surgical History Medical History: Aspiration, hypertension, spinal arthritis, myelopathy, radiculopathy, asthma, stage III hip ulcer, stage II pressure ulcers on buttock and back. Surgical History: Spinal surgeries, ankle surgery, wound debridement Family History Positive for asthma Social History Smoking Status: Former Smoker History of Alcohol Use: No Drug Use: none Marital Status: in relationship Housing Status: lives with family Occupation Status: retired Patient lives with his significant other of 18 years, significant other's sister sometimes assists with care Review of Systems Constitutional: + weakness, No fever Eyes: No worsening of vision ENT: + hearing loss Respiratory: + cough (Nonproductive), No shortness of breath Cardiac: No chest pain Abdomen: No pain Musculoskeletal: No swelling Male : + problem reported (Has an indwelling Beasley) Neurologic: + weakness Psychiatric: No anxiety Endo: + fatigue Skin: No rash Allergies Coded Allergies: Tetanus Immune Globulin (Verified Allergy, Mild, 07/04/17) Medications Current Inpatient Medications Medications (Trade) Dose Ordered Sig/Roland Route Start Time Stop Time Status Last Admin Dose Admin Ondansetron HCl (Zofran Inj) 4 mg Q6H PRN IV 09/20/17 11:15 10/20/17 11:14 Heparin Sodium (Porcine) (Heparin Sq 5000 Unit/0.5ml) 5,000 unit Q12H SQ 09/20/17 21:00 10/20/17 20:59 09/22/17 09:37 5,000 UNIT Piperacillin Sod/ Tazobactam Sod 3.375 gm/Dextrose 115 ml @ 28.75 mls/ hr Q8H IV 09/20/17 18:00 09/27/17 17:59 09/22/17 09:41 28.75 MLS/HR Miscellaneous Information (Consult) 1 ea UD PRN N/A 09/20/17 11:15 10/20/17 11:14 Potassium Chloride/Sodium Chloride 1,000 ml @ 75 mls/hr [id number] IV 09/20/17 15:00 10/20/17 14:59 09/22/17 13:26 75 MLS/HR Morphine Sulfate (MoRPHine SULFATE INJ) 2 mg Q4 PRN IV 09/20/17 11:15 10/04/17 11:14 09/22/17 15:53 2 MG Enteral Nutritional Formula (Boost Pudding) 1 cup TID@1000,1400,2000 PO 09/21/17 10:00 10/21/17 09:59 09/22/17 14:15 1 CUP Ipratropium Catron (Atrovent 0.02% 0.5MG/2.5ML Neb) 0.5 mg Q8R INH 09/21/17 16:00 10/21/17 15:59 09/22/17 15:26 0.5 MG Levalbuterol (Xopenex 0.63 Mg/ 3 Ml Neb) 0.63 mg Q8R INH 09/21/17 16:00 10/21/17 15:59 09/22/17 15:26 0.63 MG Physical Exam Date Time Temp Pulse Resp B/P (MAP) Pulse Ox O2 Delivery O2 Flow Rate FiO2 09/22/17 15:34 36.3 84 20 130/66 (87) 95 Nasal Cannula 2.0 09/22/17 15:26 84 18 95 Nasal Cannula 2.0 09/22/17 08:02 36.5 90 20 113/51 (71) 93 09/22/17 08:00 Nasal Cannula 2.0 09/21/17 23:30 Nasal Cannula 2.0 09/21/17 23:30 36.6 100 17 114/61 (78) 93 Nasal Cannula 3.0 General Appearance: no apparent distress, + cachetic Eyes: EOMI ENT: + pertinent finding (Heart appearing, loosely fitting dentures) Neck: supple Respiratory: no respiratory distress Cardiovascular: regular rate, rhythm, no edema Abdomen: non tender, soft Musculoskeletal: abnormal strength Neurologic/Psychiatric: + pertinent finding (Flat affect) Skin: warm/dry Assessment & Plan Palliative Performance Scale: 40 % (1) Palliative care encounter Assessment & Plan: Discussed goals of care, discussed treatment options regarding nutrition - patient does not want a feeding tube Patient is an 82-year-old male with the above-mentioned problems with recent aspiration. Patient does not want a feeding tube. Patient and significant other understand that he could have recurrent aspiration and are accepting of this. Patient is aware that if he stopped eating it would lead to his demise. Both patient and significant other hope to return to [facility] to continue his skilled care with IV antibiotics and wound care for his multiple pressure ulcers that are reportedly improving. Discussed alternate plans if patient does not improve and is not strong enough to be able to get out of bed anymore. Hospice was mentioned. Counseling and Coordination Total time 50 minutes with greater than 50% of the time spent at bedside discussing goals of care and plan of care with patient and significant other
--- NOTE | 2017-09-22 22:22 | Progress Note ---
Subjective Date of Service: Sep 22, 2017. Subjective Pt evaluation today including: conversation w/ patient Patient reports no signficiant improvement. His partner states that he appears to be eating more today. Patient today told his significant other and a nurse that he would like to . Problem List Medical Problems: (1) Ambulatory dysfunction Status: Acute (2) CVA (cerebral vascular accident) Status: Acute (3) Generalized weakness Status: Acute (4) Hypoxia Status: Acute (5) Multiple rib fractures Status: Acute (6) UTI (urinary tract infection) Status: Acute Review of Systems Constitutional: + weight loss, No fever, No chills Eyes: No worsening of vision ENT: No hearing loss Respiratory: + cough Cardiac: No chest pain Abdomen: No pain Musculoskeletal: No joint pain Neurologic: + memory loss Psychiatric: No depression symptoms Heme: No abnormal bleeding/bruising Endo: + fatigue Skin: No rash All Other Systems: Reviewed and Negative Objective Vital Signs Date Time Temp Pulse Resp B/P (MAP) Pulse Ox O2 Delivery O2 Flow Rate FiO2 09/22/17 16:00 Nasal Cannula 2.0 09/22/17 15:34 36.3 84 20 130/66 (87) 95 Nasal Cannula 2.0 09/22/17 15:26 84 18 95 Nasal Cannula 2.0 09/22/17 08:02 36.5 90 20 113/51 (71) 93 09/22/17 08:00 Nasal Cannula 2.0 09/21/17 23:30 Nasal Cannula 2.0 09/21/17 23:30 36.6 100 17 114/61 (78) 93 Nasal Cannula 3.0 Physical Exam Comments: General appearance: cachetic male who appears older than stated age. HEENT: Pupils were reactive to light. Nasal cannula was in place. NECK: no adenopathy noted HEART: RRR LUNGS: rhonchi bilaterally, ABDOMEN: Soft. NT ND EXTREMITIES: NO edema, contracted lower extremities GENITOURINARY: Beasley catheter is noted to be in place. SKIN: Shows no rashes. No pallor or icterus. He does have his chronic wounds that are outlined in the wound clinic note from earlier this morning. MUSCULOSKELETAL: Shows no significant deformities; however, he does have significant muscle wasting. NEUROLOGIC: Shows cranial nerves II-XII to be grossly intact. Gross motor and sensory intact. Assessment and Plan 1. Aspiration Pneumonia with sepsis present on admission as well as early hypoxic respiratory failure. Patient had elevated WBC. Unsure if leukemoid or from infection given his significant weight loss, hematuria. He also has altered mental status. HR nad RR. has improved, no fever. It is likely that patient has aspiration pneumonia, will contnue to use Zosyn However given his other problems, calorie malnutrition, low BMI, decreased quality of life. Given how patient appears to want to , and has been gradually deteriorating, a palliatative care consult seems reasonable. Significant other agrees. 2. Hip wound. We will continue with wound care for this. H/O MRSA Will continue bactrim. 3. Hematuria. He apparently has recently been treated for urinary tract infection. His most recent urine culture about a week ago showed corynebacterium. We will follow this closely and he does have a urine culture pending. For now ill hold off invasive testing. discussed with partner. 4. Moderate to possibly severe protein calorie malnutrition. He does have muscle wasting. His albumin is low. Patient has lost about 100 pounds in past year. 5. Mild anemia, follow. 6. Prerenal azotemia and dehydration. will continue gentle fluids 7. Deep venous thrombosis prophylaxis, heparin subcu. 8. Chronic arthritis. Will use morphine p.r.n. pain for now, and then as soon as it is safe to take p.o., we will want to at least resume his regular gabapentin and OxyContin to prevent any kind of withdrawal. 9. Delirium/metabolic encephalopathy. It is not clear exactly what his baseline mental status is, will avoid meds that can worsen his delirium. will continue to monitor 10. Disposition: [facility] and I confirmed with his that he is a level [address] [facility] stay due to: other (social issue) Discharge planning: uncertain
[2017-09-22 23:13] VITALS: PULSE 88; O2SAT 95
[2017-09-23] VITALS (7 sets, daily range): BP systolic 104–112; BP diastolic 53–58; PULSE 70–87; TEMP 36.2–36.5; O2SAT 95–98
[2017-09-23] MEDS: SODIUM CHLOR 0.45% + 20MEQ KCL 1,000 ML IV SCH ×2 (01:55→15:51)
[2017-09-23] MEDS: PIPERACILL/TAZOBAC IV 3.375 GM in DEXTROSE 5% 100ML 100 ML IV SCH ×3 (01:55→18:17)
--- NOTE | 2017-09-23 02:39 | Progress Note ---
Progress Note Date of Service Sep 23, 2017. Progress Note Nurse reported significant worsening hematuria from melgar. Heparin was discontinued. Further urological evaluation per primary team's discretion. SCD' s were ordered.
[2017-09-23] MEDS: IPRATROPIUM BROMIDE NEB SOLN 0.02% 2.5 ML VIAL INH SCH ×3 (08:00→23:03)
[2017-09-23] MEDS: LEVALBUTEROL 0.63MG/3 ML NEB INH SCH ×3 (08:00→23:03)
[2017-09-23] MEDS: HEPARIN SOD 5000 UNIT/0.5 ML CARP SQ SCH ×2 (09:45→20:03)
[2017-09-23] MEDS: BOOST VANILLA PUDDING CUP PO SCH ×3 (09:47→19:54)
--- NOTE | 2017-09-23 10:52 | PULMONARY PROGRESS NOTE ---
DATE: 09/23/2017 TIME: 10:30 a.m. SUBJECTIVE: The patient is lethargic. He responded very little. His significant other who is his power of patent attorney was present. She states that last evening he ate about 50% of his supper. This was all pureed. She stated he did cough slightly with eating. OBJECTIVE: GENERAL: The patient is lethargic. He does arouse somewhat. He verbalized very little. VITAL SIGNS: Temperature is 36.3. HEART: Heart rate is 70 per minute. Rhythm is regular. Blood pressure 112/58. CHEST: Auscultation of the lung bailey reveals diminished breath sounds. He has mild rhonchi bilaterally. Saturation is recorded as 98% on room air, although he has had some oxygen on. EXTREMITIES: He continues to reveal contractures of both lower extremities. There is no edema noted. The patient appears cachectic. There are no labs available from today. He did have the video swallow yesterday which showed a small amount of tracheal aspiration with swallowing of thin liquids. No aspiration with remainder of consistencies. There were moderate residuals within the vallecula and the piriform sinuses. Palliative care consultation was done by Dr. Katz. She reports that the patient does not want a feeding tube which seems reasonable. IMPRESSIONS: 1. Aspiration of gastrointestinal contents. 2. 70-pound weight loss. 3. Leukocytosis. The patient's status seems poor. He is on Zosyn as well as neb treatments. There was a question on his original x-ray of a density in the right upper lung field being artifact. We will order an additional x-ray to see if that can be verified. If that x-ray is unremarkable, pulmonary will sign off.
[2017-09-23] MEDS: MoRPHine SULFATE 2 MG/ML CARP IV PRN ×2 (10:55→16:31)
--- NOTE | 2017-09-23 11:43 | DIAGNOSTIC IMAGING REPORT ---
SINGLE VIEW CHEST CLINICAL HISTORY: Follow-up right upper lobe consolidation. FINDINGS: An AP, portable, upright chest radiograph is compared to study dated 09/20/2017. The examination is degraded by portable technique and patient rotation. The heart is top normal for projection and there is atherosclerotic calcification of the thoracic aorta. Chronic interstitial thickening is similar to previous. Patchy airspace consolidation is again seen in the right upper lobe. This has modestly cleared from 09/20/2017. Trace pleural effusions are suspected. The left lung is grossly clear. No pneumothorax is seen. The skeletal structures are osteopenic. The bony thorax is grossly intact. Fusion hardware is noted in the lower cervical spine. IMPRESSION: 1. Patchy airspace consolidation is again seen in the right upper lobe. This has modestly cleared from 09/20/2017 and likely represents pneumonia/aspiration pneumonitis. Continued follow-up to resolution is recommended. 2. Suspect trace pleural effusions. Electronically signed by: Honorio Navarro M.D. 09/23/2017 11:42 AM Dictated Date/Time: 09/23/2017 11:41 AM
--- NOTE | 2017-09-23 22:43 | Progress Note ---
Subjective Date of Service: Sep 23, 2017. Subjective Pt evaluation today including: conversation w/ patient Patient reports no significant changes today. Son and significant other were at bedside. Problem List Medical Problems: (1) Ambulatory dysfunction Status: Acute (2) CVA (cerebral vascular accident) Status: Acute (3) Generalized weakness Status: Acute (4) Hypoxia Status: Acute (5) Multiple rib fractures Status: Acute (6) UTI (urinary tract infection) Status: Acute Review of Systems Constitutional: + weakness, No fever Eyes: No worsening of vision ENT: No unusual epistaxis Respiratory: + cough Cardiac: No chest pain Abdomen: No pain Musculoskeletal: + joint pain Male : + hematuria Neurologic: No memory loss Psychiatric: No depression symptoms Heme: No abnormal bleeding/bruising Endo: + fatigue Skin: No rash All Other Systems: Reviewed and Negative Objective Vital Signs Date Time Temp Pulse Resp B/P (MAP) Pulse Ox O2 Delivery O2 Flow Rate FiO2 09/23/17 20:00 Nasal Cannula 2.0 09/23/17 15:32 36.2 71 18 110/53 (72) 97 Nasal Cannula 2.0 09/23/17 14:53 82 14 95 Nasal Cannula 2.0 09/23/17 08:00 Nasal Cannula 2.0 09/23/17 07:23 36.3 70 18 112/58 (76) 98 Room Air 09/23/17 07:12 82 14 95 Nasal Cannula 2.0 09/23/17 00:28 36.5 87 20 104/53 (70) 96 Nasal Cannula 2.0 09/22/17 23:59 Nasal Cannula 2.0 09/22/17 23:13 88 14 95 Nasal Cannula 2.0 Physical Exam Comments: General appearance: cachetic male who appears older than stated age. HEENT: Pupils were reactive to light. Nasal cannula was in place. NECK: no adenopathy noted HEART: RRR LUNGS: rhonchi bilaterally, ABDOMEN: Soft. NT ND EXTREMITIES: NO edema, contracted lower extremities GENITOURINARY: Beasley catheter is noted to be in place. SKIN: Shows no rashes. No pallor or icterus. He does have his chronic wounds that are outlined in the wound clinic note from earlier this morning. MUSCULOSKELETAL: Shows no significant deformities; however, he does have significant muscle wasting. NEUROLOGIC: Shows cranial nerves II-XII to be grossly intact. Gross motor and sensory intact. Assessment and Plan 1. Aspiration Pneumonia with sepsis present on admission as well as early hypoxic respiratory failure. Patient had elevated WBC. Unsure if leukemoid or from infection given his significant weight loss, hematuria. He also has altered mental status. HR and RR. has improved, no fever. It is likely that patient has aspiration pneumonia, will continue to use Zosyn However given his other problems, calorie malnutrition, low BMI, decreased quality of life. Given how patient appears to want to , and has been gradually deteriorating, a palliatative care consult seems reasonable. They had discussion with palliative care team yesterday. Understands patient may deteriorate but would like to continue treatment at this time. Do not want feeding tube. will discuss with palliative care team again on Monday. 2. Hip wound. We will continue with wound care for this. H/O MRSA Will continue bactrim. 3. Hematuria. He apparently has recently been treated for urinary tract infection. His most recent urine culture about a week ago showed corynebacterium. We will follow this closely and he does have a urine culture pending. For now ill hold off invasive testing. discussed with partner. 4. Moderate to possibly severe protein calorie malnutrition. He does have muscle wasting. His albumin is low. Patient has lost about 100 pounds in past year. 5. Mild anemia, follow. 6. Prerenal azotemia and dehydration. will continue gentle fluids 7. Deep venous thrombosis prophylaxis, heparin subcu. 8. Chronic arthritis. Will use morphine p.r.n. pain for now, and then as soon as it is safe to take p.o., we will want to at least resume his regular gabapentin and OxyContin to prevent any kind of withdrawal. 9. Delirium/metabolic encephalopathy. It is not clear exactly what his baseline mental status is, will avoid meds that can worsen his delirium. will continue to monitor 10. Disposition: He will be admitted to Med Surg under the [facility] and I confirmed with his that he is a level 5 DNR. Son and daughter in law were at bed side with significant other. They were updated. Care of patient today lasted about 45 minutes.
[2017-09-24] VITALS: BP 129/62; PULSE 72; TEMP 36.7; O2SAT 94
[2017-09-24] MEDS: PIPERACILL/TAZOBAC IV 3.375 GM in DEXTROSE 5% 100ML 100 ML IV SCH ×3 (02:00→18:00)
[2017-09-24] MEDS: SODIUM CHLOR 0.45% + 20MEQ KCL 1,000 ML IV SCH ×2 (05:05→17:36)
[2017-09-24] MEDS: IPRATROPIUM BROMIDE NEB SOLN 0.02% 2.5 ML VIAL INH SCH ×3 (06:54→23:03)
[2017-09-24 06:55] VITALS: PULSE 77; O2SAT 98
[2017-09-24] MEDS: LEVALBUTEROL 0.63MG/3 ML NEB INH SCH ×3 (06:55→23:04)
[2017-09-24 07:21] LABS: CREATININE 0.57 mg/dl (0.60-1.40)
[2017-09-24 08:03] VITALS: BP 148/66; PULSE 75; TEMP 36.5; O2SAT 93
[2017-09-24 08:16] VITALS: BP 138/61; PULSE 71; TEMP 36.7; O2SAT 95
[2017-09-24] MEDS: HEPARIN SOD 5000 UNIT/0.5 ML CARP SQ SCH (09:00)
[2017-09-24] MEDS: BOOST VANILLA PUDDING CUP PO SCH ×3 (09:41→17:38)
[2017-09-24] MEDS: MoRPHine SULFATE 2 MG/ML CARP IV PRN ×2 (13:25→19:24)
[2017-09-24 16:22] VITALS: BP 113/57; PULSE 69; TEMP 36.3; O2SAT 95
--- NOTE | 2017-09-24 18:11 | Progress Note ---
Subjective Date of Service: Sep 24, 2017. Subjective Pt evaluation today including: conversation w/ patient, conversation w/ family No change from yesterday. Patient continues to be intermittently confused. Patient denies any pain at this time. Patient still has a cough. Problem List Medical Problems: (1) Ambulatory dysfunction Status: Acute (2) CVA (cerebral vascular accident) Status: Acute (3) Generalized weakness Status: Acute (4) Hypoxia Status: Acute (5) Multiple rib fractures Status: Acute (6) UTI (urinary tract infection) Status: Acute Review of Systems Constitutional: + weight loss, No fever Eyes: No worsening of vision ENT: No unusual epistaxis Respiratory: + cough Cardiac: No chest pain Abdomen: No pain Musculoskeletal: + joint pain Male : + hematuria Neurologic: + weakness Psychiatric: No depression symptoms Heme: No abnormal bleeding/bruising Endo: + fatigue Skin: No rash All Other Systems: Reviewed and Negative Objective Vital Signs Date Time Temp Pulse Resp B/P (MAP) Pulse Ox O2 Delivery O2 Flow Rate FiO2 09/24/17 16:22 36.3 69 20 113/57 (75) 95 Room Air 09/24/17 16:05 Room Air 09/24/17 08:16 36.7 71 20 138/61 (86) 95 Room Air 09/24/17 08:03 36.5 75 20 148/66 (93) 93 09/24/17 08:00 Room Air 09/24/17 06:55 77 14 98 Nasal Cannula 2.0 09/24/17 00:00 Room Air 09/24/17 00:00 36.7 72 18 129/62 (84) 94 Room Air 09/23/17 23:05 71 14 98 Nasal Cannula 2.0 09/23/17 20:00 Nasal Cannula 2.0 Physical Exam Comments: General appearance: cachetic male who appears older than stated age. HEENT: Pupils were reactive to light. Nasal cannula was in place. NECK: no adenopathy noted HEART: RRR LUNGS: rhonchi bilaterally, ABDOMEN: Soft. NT ND EXTREMITIES: NO edema, contracted lower extremities GENITOURINARY: Beasley catheter is noted to be in place. SKIN: Shows no rashes. No pallor or icterus. He does have his chronic wounds that are outlined in the wound clinic note from earlier this morning. MUSCULOSKELETAL: Shows no significant deformities; however, he does have significant muscle wasting. NEUROLOGIC: Shows cranial nerves II-XII to be grossly intact. Gross motor and sensory intact. Laboratory Results Last 24 Hours Test 09/24/17 06:31 Creatinine 0.57 mg/dl Est Creatinine Clear Calc Drug Dose 68.1 ml/min Estimated GFR () 110.1 Estimated GFR (Non- 95.0 Assessment and Plan 1. Aspiration Pneumonia with sepsis present on admission as well as early hypoxic respiratory failure. Patient had elevated WBC. Unsure if leukemoid or from infection given his significant weight loss, hematuria. He also has altered mental status. HR and RR. has improved, no fever. It is likely that patient has aspiration pneumonia, will continue to use Zosyn However given his other problems, calorie malnutrition, low BMI, decreased quality of life. Given how patient appears to want to , and has been gradually deteriorating, a palliatative care consult seems reasonable. They had discussion with palliative care team yesterday. Understands patient may deteriorate but would like to continue treatment at this time. Do not want feeding tube. Speech therapy saw patient and recommended: 1.Pureed diet, NECTAR thick liquids. May require further modification to honey thick liquids with any increased difficulty tolerating nectars. will discuss with palliative care team again on tomorrow. 2. Hip wound. We will continue with wound care for this. H/O MRSA Will continue bactrim. 3. Hematuria. worsening hematuria. hold heparin today For now ill hold off invasive testing. discussed with partner. 4. Moderate to possibly severe protein calorie malnutrition. He does have muscle wasting. His albumin is low. Patient has lost about 100 pounds in past year. will continue to romotoe oral intake while he is here 5. Mild anemia, follow. 6. Prerenal azotemia and dehydration. will continue gentle fluids 7. Deep venous thrombosis prophylaxis, heparin subcu. 8. Chronic arthritis. Will use morphine p.r.n. pain for now, and then as soon as it is safe to take p.o., we will want to at least resume his regular gabapentin and OxyContin to prevent any kind of withdrawal. 9. Delirium/metabolic encephalopathy. It is not clear exactly what his baseline mental status is, mild improvement over the course of the weekend. this appears to be his new baseline. will avoid meds that can worsen his delirium. will continue to monitor 10. Disposition: [facility] and I confirmed with his that he is a level 5 DNR. Family will have discussion with palliative care again tomorrow. IT APPEARS THEY ARE CLOSER TO HOSPICE. Continued [facility] stay due to: other (palliative goals need to be determined prior to discharge) Discharge planning: intermediate facility
[2017-09-24] MEDS ORDERED: NURSING VERBAL MED ORDER ONE (18:15)
[2017-09-24 23:04] VITALS: PULSE 80; O2SAT 96
[2017-09-25] VITALS (7 sets, daily range): BP systolic 128–138; BP diastolic 59–67; PULSE 64–81; TEMP 36.7; O2SAT 93–98
[2017-09-25] MEDS: PIPERACILL/TAZOBAC IV 3.375 GM in DEXTROSE 5% 100ML 100 ML IV SCH (01:55)
[2017-09-25] MEDS: LEVALBUTEROL 0.63MG/3 ML NEB INH SCH ×2 (07:04→15:21)
[2017-09-25] MEDS: IPRATROPIUM BROMIDE NEB SOLN 0.02% 2.5 ML VIAL INH SCH ×2 (07:04→15:21)
[2017-09-25 07:19] LABS: HEMATOCRIT 34.1 % (42-52); HEMOGLOBIN 10.9 g/dL (14.0-18.0); MEAN CORPUSCULAR HEMOGLOBIN 28.8 pg (25-34); MEAN PLATELET VOLUME 9.4 fL (7.4-10.4); PLATELET COUNT 253 K/uL (130-400); RED CELL DISTRIBUTION WIDTH CV 15.8 % (11.5-14.5); RED CELL DISTRIBUTION WIDTH SD 51.8 fL (36.4-46.3)
[2017-09-25] MEDS: SODIUM CHLOR 0.45% + 20MEQ KCL 1,000 ML IV SCH (07:34)
[2017-09-25 07:47] LABS: CALCIUM 7.9 mg/dl (8.5-10.1); CREATININE 0.47 mg/dl (0.60-1.40); POTASSIUM 3.9 mmol/L (3.5-5.1)
[2017-09-25] MEDS: MoRPHine SULFATE 2 MG/ML CARP IV PRN (09:02)
[2017-09-25] MEDS: BOOST VANILLA PUDDING CUP PO SCH ×2 (10:00→13:52)
[2017-09-25] MEDS ORDERED: MoRPHine SULFATE 5 MG/0.25 ML UDP PO PRN (10:30)
[2017-09-25] MEDS ORDERED: AMOX875T PO (13:36)
[2017-09-25] MEDS ORDERED: RXNS10 PO (13:36)
--- NOTE | 2017-09-25 13:42 | Discharge Instructions ---
Discharge Instructions Date of Service Sep 25, 2017. Admission Reason for Admission: Pneumonia Discharge Discharge Diagnosis / Problem: Right upper lobe pneumonia, failure to thrive Discharge Goals Goal(s): Decrease discomfort, Improve function Activity Recommendations Activity Level: Bedrest Lifting Limitations: none Exercise/Sports Limitations: none Shower/Bathe: no limitations . Additional Information Patient informed of condition: Yes Advance Directives: Yes DNR: Yes Level of Care: Skilled Communicable Disease: No Prognosis: Deteriorating Oxygen at (LPM): no Beasley Catheter: No Instructions / Follow-Up Instructions / Follow-Up Medications: - AUGMENTIN: complete 8 more doses for pneumonia - ROXANOL: use as needed for any discomfort, difficulty breathing, titrate dose upward as needed Pneumonia: treated with Zosyn initially, afebrile, vitals stable complete 7 days total treatment with Augmentin on discharge Failure to thrive, weight loss, muscle deterioration: discussed with POA, plan for palliative approach once back at [facility] POLST completed: DNR, comfort only, antibiotics only for comfort, no feeding tube only return to hospital if pain cannot be controlled FOLLOW UP - physician at [facility] Speech therapy: SUMMARY/RECOMMENDATIONS: This patient presents with moderate kamron-pharyngeal dysphagia. Esophageal dysfunction is also suspected. Recommendations are as follows: 1.Pureed diet, NECTAR thick liquids. May require further modification to honey thick liquids with any increased difficulty tolerating nectars. 2.Aspiration and GERD precautions, NO straws. Fully upright for meals and for 30 minutes after meals. Head of the bed to be elevated at all times (to at least 30 degrees) to include while sleeping. 3.Stringent oral care to include brushing all surfaces of the mouth and tongue prior to and after meals, and before bed. This will reduce oral bacteria that can be aspirated in saliva. 4.Alternate solids and liquids. 5.This patient would benefit from continued SENIOR PROJECT ACCOUNTANT services upon return to [facility], for carryover of diet and safe swallow strategies. Patient may also benefit from trials of a diet upgrade to mechanical soft once his overall medical status has improved. Current Hospital Diet Patient's current hospital diet: Regular Diet Discharge Diet Recommended Diet: Regular Diet Liquid Consistency: [place] Thick Pending Studies Studies pending at discharge: no Physician Orders On Transfer POLST Discussion: with POLST completion Laboratory Results Hemoglobin A1c Test 08/03/17 06:36 Range/Units Estimated Average Glucose 114 mg/dl Hemoglobin A1c 5.6 4.5-5.6 % Medical Emergencies . Who to Call and When: Medical Emergencies: If at any time you feel your situation is an emergency, please call 911 immediately. . Non-Emergent Contact Non-Emergency issues call your: Primary Care Provider Call Non-Emergent contact if: you have any medication questions . . "Provider Documentation" section prepared by Kenneth Cho. . Core Measure Problem Core Measures: None [place] Drug Monitoring Program Search Results: no issues identified
--- NOTE | 2017-09-26 07:37 | Discharge Summary ---
Discharge Summary Date of Service Sep 25, 2017. Discharge Summary Admission Date: Sep 20, 2017 at 14:20 Discharge Date: Sep 25, 2017 Principal Diagnosis: Right upper lobe pneumonia, likely aspiration Problems/Secondary Diagnoses: Failure to thrive Muscle wasting Left hip wound Immunizations: Have You Had Influenza Vaccine: No History of Tetanus Vaccine?: Unknown History of Pneumococcal: No History of Hepatitis B Vaccine: No Procedures: none Consultations: Palliative care Medication Reconciliation New Medications: Amoxicillin & Pot Clavulanate (Augmentin 875-125 mg) 1 Tab Tab 1 TAB PO BID, #8 TAB Morphine Sulfate (Morphine Sulfate) 10 Mg/0.5 Ml Soln 0.25 ML PO Q4 PRN for Pain, #50 ML 0 Refills Continued Medications: Acetaminophen (Arthritis Pain Relief) 650 Mg Tab 650 MG PO Q4H PRN for Fever Docusate Sodium (Docusate Sodium) 100 Mg Cap 100 MG PO BID Gabapentin (Neurontin) 100 Mg Cap 200 MG PO BID Pancrelipase (Lipase-Protease- (Zenpep) 1 Cap Cap 1 CAP PO WM DELAYED RELEASE PARTICLES [id number] UNIT Discontinued Medications: Ascorbic Acid (Vitamin C) 500 Mg Tab 500 MG PO BID Aspirin (Aspirin Ec) 81 Mg Tab 81 MG PO DAILY Ciprofloxacin Tab (Cipro) 250 Mg Tab 250 MG PO BID X7 DAYS START DATE: 09/14/17 Multivitamin (Multivitamin) Tab 1 TAB PO DAILY Oxycodone Hcl (Oxycodone Hcl Er) 10 Mg Tab 10 MG PO BID Oxycodone HCl (Oxycodone HCl) 5 Mg Tab 5 MG PO Q6H PRN for Moderate Pain Oxycodone HCl (Oxycodone HCl) 5 Mg Tab 10 MG PO Q6H PRN for Severe Pain Sulfa/Trimethoprim (Bactrim Ds 800MG/160MG) Tab 1 TAB PO BID TAKE FOR WOUND INFECTION UNTIL 10/07/17 START DATE: 09/06/17 Discharge Exam Patient resting in bed, still not eating well. Breathing is stable, afebrile. Long discussion with the patient's POA regarding plan of care. She understands that he is slowly declining and will not recover. She would like to pursue hospice/palliative care at [facility]. Filled out POLST form with her, DNR, comfort, no tube feeds. Review of Systems: Constitutional: + weakness, + fatigue, No fever, No chills, No sweats, No weight loss, No problem reported Eyes: No worsening of vision, No eye pain, No redness, No discharge, No diplopia, No problem reported ENT: No hearing loss, No unusual epistaxis, No nasal symptoms, No sore throat, No tinnitus, No dental problems, No trouble swallowing, No problem reported Respiratory: + cough, No sputum, No wheezing, No shortness of breath, No dyspnea on exertion, No dyspnea at rest, No hemoptysis, No problem reported Cardiovascular: No chest pain, No orthopnea, No PND, No edema, No claudication, No palpitations, No problem reported Abdomen: No pain, No nausea, No vomiting, No diarrhea, No constipation, No GI bleeding, No problem reported Musculoskeletal: No joint pain, No muscle pain, No swelling, No calf pain, No problem reported Genitourinary - Male: No hematuria, No dysuria, No urinary frequency, No urinary urgency Neurologic: No memory loss, No paralysis, No weakness, No numbness/tingling , No vertigo, No balance problems, No problem reported Psychiatric: No depression symptoms, No anhedonism, No anxiety, No insomnia , No substance abuse, No problem reported Endocrine: No fatigue, No excessive thirst, No excessive urination, No problem reported Hematologic / Lymphatic: No abnormal bleeding/bruising, No clotting problems , No swollen lymph nodes, No night sweats, No problem reported Integumentary: No rash, No itch, No new/changing skin lesions, No color change, No bleeding, No problem reported Physical Exam: General Appearance: WD/WN, no apparent distress Eyes: normal inspection, EOMI, sclerae normal ENT: normal ENT inspection, hearing grossly normal, pharynx normal Neck: supple, no adenopathy, no JVD, trachea midline Respiratory/Chest: chest non-tender, no respiratory distress, no accessory muscle use, + decreased breath sounds, + crackles (right) Cardiovascular: regular rate, rhythm, no edema, no gallop, no JVD, no murmur , normal peripheral pulses Abdomen / GI: normal bowel sounds, non tender, soft, no organomegaly Extremities: normal inspection, no calf tenderness, normal capillary refill , no pedal edema, normal range of motion, non-tender, pelvis stable Neurologic/Psychiatric: 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, no motor/sensory deficits , alert, normal mood/affect, normal reflexes, oriented x 3 Skin: normal color, warm/dry, no rash Hospital Course - Aspiration pneumonia with sepsis on admission, hypoxic respiratory failure treated with Zosyn IV, good clinical response, no fever, WBC going down evaluated by speech, recommended nectar thick liquids typical aspiration precautions will change to Augmentin BID on discharge to complete 7 days total treatment discussed with patient and POA, at risk for repeat admissions given severe protein-calorie malnutrition, weakness patient has stated that he just wants to due to poor quality of life elected to make patient hospice/palliative care on return to [facility] - Hip wound: can continue wound vac for now but will remove once patient is comfortable stop Bactrim - Hematuria: no further work up given plan for palliative care - Severe protein calorie malnutrition has lost 100 pounds in the past year, not eating well at all, no appetite, profound weakness - Prerenal azotemia and dehydration resolved with IV fluids - Severe arthritis: pain control with Morphine d/c back to [facility] on palliative care POLST form: DNR, comfort care only, no tube feeds, antibiotic only for comfort Total Time Spent: Greater than 30 minutes This includes examination of the patient, discharge planning, medication reconciliation, and communication with other providers. Discharge Instructions Please refer to the electronic Patient Visit Report (Discharge Instructions) for additional information. Follow-Up Physician at [facility] Additional Copies To Jose Savage
== END 2017-09-25 15:49 | DRG 871 ==
LOC: C.EDB 08:59 → ENRESERV 13:45 → C.MS2W 14:20
PROVIDERS: ADMIT Family Medicine; ATTEND Family Medicine
DX: A41.9 Sepsis, unspecified organism (principal); J69.0 Pneumonitis due to inhalation of food and vomit; E43 Unspecified severe protein-calorie malnutrition; J96.91 Respiratory failure, unspecified with hypoxia; G93.41 Metabolic encephalopathy; L89.223 Pressure ulcer of left hip, stage 3; M47.12 Other spondylosis with myelopathy, cervical region; M47.16 Other spondylosis with myelopathy, lumbar region; R64 Cachexia; Z68.1 Body mass index [BMI] 19.9 or less, adult; R62.7 Adult failure to thrive; E86.0 Dehydration; R79.89 Other specified abnormal findings of blood chemistry; R31.9 Hematuria, unspecified; M62.50 Muscle wasting and atrophy, not elsewhere classified, unspecified site; M47.26 Other spondylosis with radiculopathy, lumbar region; D64.9 Anemia, unspecified; L89.102 Pressure ulcer of unspecified part of back, stage 2; J45.909 Unspecified asthma, uncomplicated; I12.9 Hypertensive chronic kidney disease with stage 1 through stage 4 chronic kidney disease, or unspecified chronic kidney disease; N18.9 Chronic kidney disease, unspecified; N40.0 Benign prostatic hyperplasia without lower urinary tract symptoms; Z51.81 Encounter for therapeutic drug level monitoring; Z79.899 Other long term (current) drug therapy; Z79.891 Long term (current) use of opiate analgesic; Z79.82 Long term (current) use of aspirin; Z66 Do not resuscitate; Z87.440 Personal history of urinary (tract) infections; Z86.14 Personal history of Methicillin resistant Staphylococcus aureus infection; Z86.73 Personal history of transient ischemic attack (TIA), and cerebral infarction without residual deficits; Z91.81 History of falling; Z87.891 Personal history of nicotine dependence; Z88.7 Allergy status to serum and vaccine; Z82.5 Family history of asthma and other chronic lower respiratory diseases

== ENCOUNTER → 2017-09-20 | Outpatient (CLI) | payer OTHER, MEDICARE ==
[~2017-09-20] MED LIST changes: +AMOX875T PO; +RXNS10 PO
[2017-09-20 10:11] LABS: ALBUMIN 2.2 gm/dl (3.4-5.0); ALT/SGPT 22 U/L (12-78); AST/SGOT 19 U/L (15-37); BLOOD UREA NITROGEN 33 mg/dl (7-18); CALCIUM 8.8 mg/dl (8.5-10.1); CARBON DIOXIDE 27 mmol/L (21-32); CREATININE 0.88 mg/dl (0.60-1.40); GLUCOSE 131 mg/dl (70-99); POTASSIUM 4.6 mmol/L (3.5-5.1); SODIUM 139 mmol/L (136-145)
[2017-09-20 10:15] LABS: ALKALINE PHOSPHATASE 72 U/L (45-117); TOTAL PROTEIN 6.7 gm/dl (6.4-8.2)
== END ==
LOC: C.LABCC 09:44
PROVIDERS: ATTEND Internal Medicine
DX: R63.0 Anorexia (principal)